=== PATIENT | female | born 1940 | race Caucasian/White ===

== ENCOUNTER 2024-07-17 09:56 | Outpatient (AMB) | payer MEDICARE, SELFPAY ==
--- NOTE | 2024-07-17 09:58 | MHC.OFFVIS ---
Vital Signs 07/17/24 10:10 Weight 106 lb BP 163/79 H Blood Pressure Location Rt brachial Position Sitting Pulse 84 Intake Visit Reasons: Rectal Prolapse Intake Note: This patient presents for rectal prolapse assessment. Pt c/o; rectal prolapse. Medicaid Billing Clerk Required: No Accompanied by: Son Allergies ciprofloxacin [From Cipro] Allergy (Severe, Verified 07/17/24 10:08) unknown Sulfa (Sulfonamide Antibiotics) Allergy (Severe, Verified 07/17/24 10:08) unknown Medication List - Last Reconciled 07/17/24 by Angel Shoemaker MD albuterol sulfate 90 mcg/actuation inhalation amlodipine 5 mg PO DAILY aspirin (Adult Low Dose Aspirin) 81 mg PO DAILY atorvastatin 20 mg PO DAILY carbidopa-levodopa 25-100 mg ER 1 tab PO BID desvenlafaxine succinate ER 50 mg PO DAILY duloxetine 20 mg PO DAILY estradiol 0.01%(0.1mg/gram) vaginal fluticasone propionate 50 mcg/actuation sprays intranasal gabapentin 100 mg PO DAILY gabapentin 300 mg PO DAILY levothyroxine 100 mcg PO DAILY medroxyprogesterone 10 mg PO DAILY sertraline mg PO HPI HPI Rectal Prolapse: Details: [age] year old female referred for rectal prolapse and incontinence. She apparently has had this problem for several years now. She says that she has been incontinent of stools for a long time. She has had this prolapse for few years but she says she was not told that was a rectal prolapse until a few months ago. She has full incontinence and wears diapers. She says even with hard stools which she often has, this would come out without control. She has known Parkinson's disease. She is able to walk with a walker but does have a significantly abnormal gait. She lives in in assisted living facility. [facility] Medical History (Updated 07/17/24 @ 11:11 by Angel Shoemaker MD) Rectal prolapse Parkinsons disease Surgical History (Updated 07/17/24 @ 10:11 by KEVIN Rice) No pertinent past surgical history Social History (Updated 07/17/24 @ 10:11 by KEVIN Rice) Alcohol intake: never Patient Tobacco Use Status: Never used Tobacco Review of Systems Const Denies chills and Denies fever(s) Card Denies chest pain at rest Resp Denies cough GI Reports constipation and Reports fecal incontinence Denies difficulty voiding Musc Reports abnormal gait Neuro Details: has Parkinson's disease with shuffling gait Reports abnormal gait Physical Exam Vital Signs: Last Vital Signs Pulse 84 07/17/24 10:10 BP 163/79 H 07/17/24 10:10 Const Other: Using a walker, shuffling gait, moves very slowly, alert General: comfortable and no acute distress Resp Effort & Inspection: normal respiratory effort Cardio Rate: regular rate GI Other: Rectal exam shows a full rectal prolapse probably about 4 cm, rectal exam shows no sphincter tone at all, no palpable mass Palpation (GI): Soft to palpation, not firm and nontender Assessment & Plan Assessment & Plan (1) Rectal prolapse: Code(s): K62.3 - Rectal prolapse Category: Medical Plan: She has full rectal prolapse with note of severe incontinence. I had a long discussion with her about options. Unfortunately, treatment would be surgical including rectopexy with repair of the pelvic floor for incontinence. She does have significant medical issues including Parkinson's disease in scores poorly on the frailty index. She does not want any further surgical intervention at this time. She says she actually has been considering hospice care for herself. I did offer for her to be seen by [facility] or [facility] to discuss if she has any other options at this time and for 2nd opinion She does not seem to be bigger to do that. I did recommend trying on Metamucil 1 tbsp in a glass of juice or water about twice a day to help with the constipation and stool consistency. She is welcome to call the office or come back for any help that we can offer down the line. Her son was with her during the visit. Coding Level of Care Code New Pt Level 3 (94178) Diagnoses Rectal prolapse K62.3
[2024-07-17 10:10] VITALS: BP 163/79; PULSE 84
== END 2024-07-17 10:39 | disposition home or self-care (01) ==
PROVIDERS: PCP Student in an Organized Health Care Education/Training Program; Visit Provider Surgery
DX: K62.3 Rectal prolapse (principal)
CPT/HCPCS: 99203

== ENCOUNTER → 2024-07-17 09:56 | Outpatient (BNVA) | payer MEDICARE, SELFPAY | PROVIDERS: PCP Student in an Organized Health Care Education/Training Program; Visit Provider Surgery | DX: K62.3 Rectal prolapse (principal) | CPT/HCPCS: 99202 ==

== ENCOUNTER 2024-12-05 11:10 | Inpatient (IN) | payer MEDICARE, SELFPAY ==
--- NOTE | ~2024-12-05 | CT_ITS ---
EXAMINATION: CT HEAD WITHOUT CONTRAST CLINICAL INFORMATION: Fall with head strike. COMPARISON: None available. TECHNIQUE: Contiguous axial imaging was performed from the skull base to vertex without intravenous administration of contrast. This CT examination was performed using dose optimization techniques as appropriate, variously including the following: *Automated exposure control *Adjustment of mA and/or kV according to patient size (this includes techniques or standardized protocols for targeted exams where dose is matched to indication/reason for exam; i.e. extremities or head) *Use of iterative reconstruction technique FINDINGS: Artifact through the posterior fossa limits evaluation of this region. There is no evidence of intracranial hemorrhage or extra-axial fluid collection. There is no mass effect, or edema. No CT evidence of acute territorial infarct. Ventricles, sulci, and cisterns are diffusely prominent, consistent with age-related involutional changes. No hydrocephalus. No midline shift. Moderate supratentorial deep white matter hypodensities, in keeping with small vessel ischemic changes. Ossification of the ventral falx. Old lacunar type infarcts bilateral thalami, and anterior gangliocapsular regions. Mild atheromatous calcification of the bilateral carotid siphons and V4 segments vertebral arteries bilaterally. Globes and orbital contents image normally. There are bilateral lens replacements. No extracranial soft tissue abnormalities. The paranasal sinuses, mastoid air cells, and tympanic cavities are normally aerated. No suspicious bony abnormalities. No fractures seen. There is hyperostosis frontalis internus. Degenerative changes right greater than left TM joints. CT/CT head/brain wo IV con IMPRESSION: 1. No acute intracranial abnormalities. No fractures. 2. Chronic findings as discussed.. Electronically signed by: Sudarshan Solo MD 12/05/2024 12:[address] [facility]
--- NOTE | ~2024-12-05 | CT_ITS ---
EXAMINATION: CT HEAD WITHOUT CONTRAST CLINICAL INFORMATION: fall w/ head strike COMPARISON: December 05, 2024 at 11:24 AM. Interval removal TECHNIQUE: Contiguous axial imaging was performed from the skull base to vertex without intravenous administration of contrast. This CT examination was performed using dose optimization techniques as appropriate, variously including the following: *Automated exposure control *Adjustment of mA and/or kV according to patient size (this includes techniques or standardized protocols for targeted exams where dose is matched to indication/reason for exam; i.e. extremities or head) *Use of iterative reconstruction technique DLP: 572.70 and 692.53 mGy-cm FINDINGS: Bony calvarium is intact. Skull base is intact. No acute intracranial hemorrhage, mass effect, midline shift, hydrocephalus or herniation. Bilateral multifocal patchy and confluent deep periventricular white matter hypodensities involving centrum semiovale and beltran radiata. Prominence of the extra-axial CSF spaces cerebral sulci and ventricles likely central volume loss. Calcified plaques in the V4 segments of the vertebral arteries and cavernous supracavernous segments both ICA. Sellar/suprasellar region demonstrated no gross masses or hemorrhage. Degenerative changes in the temporomandibular joints. No air-fluid levels in the included paranasal sinuses. For pneumatization of the frontal sinuses. Tympanic cavities and mastoid cells are aerated. No hematoma, intraconal or extraconal compartments of the orbits. CT/CT head/brain wo IV con IMPRESSION: No acute fracture, bony calvarium. No acute intracranial hemorrhage. Small vessel occlusive disease. Superimposed acute stroke/nonhemorrhagic ischemia cannot be excluded. Electronically signed by: Bret Cornejo MD 12/05/2024 02:02 PM [facility]
--- NOTE | ~2024-12-05 | CT_ITS ---
EXAMINATION: CT ABDOMEN AND PELVIS WITH CONTRAST CLINICAL INFORMATION: Fall, abnormal bladder seen CT lumbar spine. Compressible left lower quadrant mass. COMPARISON: No prior abdominal imaging. CT lumbar performed earlier same day. TECHNIQUE: Multidetector volumetric images were obtained from the superior aspect of the liver through the pubic symphysis following administration 85 mL of Omnipaque 350 intravenous contrast. Sagittal and coronal reformatted images were obtained on the technologist's workstation. Oral contrast: No This CT examination was performed using dose optimization techniques as appropriate, variously including the following: *Automated exposure control *Adjustment of mA and/or kV according to patient size (this includes techniques or standardized protocols for targeted exams where dose is matched to indication/reason for exam; i.e. extremities or head) *Use of iterative reconstruction technique FINDINGS: LUNG BASES: There is cardiac enlargement. There is calcification of the mitral annulus. No pericardial effusion. There is elevated left hemidiaphragm present. There is a small layering effusion on the right. There is mild bibasilar passive atelectasis. LIVER, GALLBLADDER, AND BILIARY TREE: The liver is normal in shape and size. Diffuse periportal edema. No suspicious lesion. No intrahepatic biliary dilatation. Common bile measures 7 mm in the pancreatic head. The gallbladder is somewhat decompressed with no evidence of radiopaque gallstones, gallbladder wall thickening, or obvious pericholecystic inflammatory changes. PANCREAS: Unremarkable. SPLEEN: Unremarkable. ADRENAL GLANDS: Bilateral hyperplasia. KIDNEYS AND URETERS: Right kidney is ptotic. It demonstrates diffuse cortical thinning/scarring. No hydronephrosis, mass, or calculus. Left kidney is normal in appearance with small cysts present. No hydronephrosis, calculus, or mass. BLADDER: Partially obscured by streak artifact from bilateral hip replacements. Moderate volume intraluminal gas, and gas seen throughout the bladder wall, consistent with emphysematous cystitis. Allowing for technical limitations, no definite fistulous tract identified. Evaluation is limited. GASTROINTESTINAL TRACT: There is abundant stool seen throughout the colon consistent with obstipation. There is inferior rectal wall thickening, edema, and enhancement extending to the arch. There is infiltration of the perirectal fat along with hemorrhoidal varices. Evaluation is partially obscured by streak artifact. Inflammatory proctitis versus mass. The appendix is suboptimally visualized but grossly no evidence of appendicitis. The duodenum appears slightly thickened with thickened enhancing mucosal folds. Cannot exclude duodenitis. Small bowel is not dilated. PERITONEUM: Anasarca with small volume ascites. No free air. RETROPERITONEUM: Diffuse anasarca with small volume fluid. ABDOMINAL WALL: Diffuse anasarca. No definite discrete hernia. LYMPH NODES: No abnormal lymphadenopathy detected. VASCULAR: Heavy atheromatous calcification and tortuosity of the aorta and iliac arteries. No aneurysm. Dilation of the SMV and portal veins, possible portal hypertension. Dilation of the IVC suggesting right heart failure. PELVIC VISCERA: Calcified fibroids within a mildly enlarged uterus. Evaluation is limited due to streak artifact from hip replacements. No definite adnexal masses. OSSEOUS STRUCTURES: Refer to the dedicated lumbar CT for lumbar spine findings. Bilateral hip arthroplasties in place. No complication evident. CT/CT abdomen pelvis w IV con IMPRESSION: 1. Anasarca with small volume intraperitoneal ascites. Small right pleural effusion. 2. Emphysematous cystitis. No definite fistulous connection to bowel although evaluation is limited due to streak artifact from bilateral hip arthroplasties. 3. Inferior rectal thickening, enhancement, and edema, with small hemorrhoidal varices. Differential includes proctitis versus mass lesion. Would correlate with direct visualization/digital examination. 4. Obstipation. 5. Dilation of the portal veins, and extra and intrahepatic IVC, findings suggestive of right heart failure. Cardiomegaly. 6. Mild thickening and enhancement of the duodenum, possibly secondary to increased right heart pressures, although duodenitis is a consideration. 7. Mild atrophy and diffuse cortical thinning/scarring right kidney. 8. Numerous additional ancillary findings as discussed. Also refer to the dedicated lumbar CT performed earlier. Electronically signed by: Sudarshan Solo MD 12/05/2024 02:19 PM [facility] [place], [place]
--- NOTE | ~2024-12-05 | CT_ITS ---
EXAMINATION: CT LUMBAR SPINE WITHOUT CONTRAST CLINICAL INFORMATION: Fall, lumbar pain. COMPARISON: None available. TECHNIQUE: Spiral CT examination of the lumbar spine in axial plane without IV contrast. Multiplanar reformatted imaging was constructed from the axial data set. This CT examination was performed using dose optimization techniques as appropriate, variously including the following: *Automated exposure control *Adjustment of mA and/or kV according to patient size (this includes techniques or standardized protocols for targeted exams where dose is matched to indication/reason for exam; i.e. extremities or head) *Use of iterative reconstruction technique FINDINGS: There is a levoconvex scoliosis, apex at L3, mild to moderate. There is straightening of the normal lordosis. There is osteopenia. There appears to be a probable acute fracture through a right dorsolateral spurring disc osteophyte involving the superior L4, nondisplaced (refer to series 5, image 66). This could potentially be chronic. Otherwise, no acute fractures, compression deformities, traumatic subluxations, or suspicious bone lesions. Severe disc degeneration with disc vacuum phenomenon spanning T11-L4, with associated sclerosis of the endplates and prominent disc osteophytes ventrally and laterally. Partial fusion of the L5-S1 anterior disc. Minimal partial fusion of the L4-5 disc. Minimal degenerative anterolisthesis L1 on L2, and retrolisthesis L2 on L3. Sagittal alignment is otherwise anatomic. Facet alignment is grossly anatomic although there are severe, end-stage hypertrophic degenerative facet changes throughout the lumbar spine, with postoperative fusion of the L4-5 and L5-S1 facets. Suspect multilevel canal stenosis, likely severe spanning T11-L4. Multilevel high-grade foraminal stenosis. Soft tissues demonstrate heavy calcification and tortuosity of the aorta which is nonaneurysmal. There is emphysema throughout the wall of the urinary bladder, consistent with emphysematous cystitis. There is abundant fecal material seen throughout the colon consistent with obstipation. There are calcified fibroids within the uterus. There is diffuse anasarca of the soft tissues. Prominent atrophy of the paraspinous musculature spanning L3-[address]/CT lumbar spine wo IV con IMPRESSION: 1. Age-indeterminate fracture through a large right anterolaterally projecting disc osteophyte superior endplate L3. No displacement. 2. Otherwise, no additional acute fracture or traumatic malalignment evident. 3. There has been fusion of L4-S1 facets. 4. Advanced, severe, multilevel spondylosis with multilevel severe canal stenosis. 5. Emphysema seen throughout the urinary bladder wall, suboptimally imaged, but suspicious for emphysematous cystitis. 6. Obstipation. Anasarca. Small right pleural effusion. -Findings were discussed with Paula Fuentes of the [facility] at 12:35 PM, 12/05/2024. Electronically signed by: Sudarshan Solo MD 12/05/2024 12:43 PM [facility] [place]
--- NOTE | ~2024-12-05 | CT_ITS ---
EXAMINATION: CT CERVICAL SPINE WITHOUT CONTRAST CLINICAL INFORMATION: Fall with head strike. History of cervical fusion. Neck pain. COMPARISON: None available. TECHNIQUE: Spiral CT examination of the cervical spine in axial plane without IV contrast. Multiplanar reformatted imaging was constructed from the axial data set. This CT examination was performed using dose optimization techniques as appropriate, variously including the following: *Automated exposure control *Adjustment of mA and/or kV according to patient size (this includes techniques or standardized protocols for targeted exams where dose is matched to indication/reason for exam; i.e. extremities or head) *Use of iterative reconstruction technique FINDINGS: There is a mild to moderate right convex scoliosis. There is mild reversal of the normal lordosis centered at C5. There have been laminectomies and posterior fusion of C3-C5 with bilateral lateral mass screws and posterior connecting rods. The hardware appears intact and well seated without loosening. No fracture, traumatic subluxation, compression deformity, or suspicious bone lesion. There is normal facet alignment. The C3-5 facets show bony fusion. The craniocervical junction is intact and aligned. The C1-2 articulation is intact and aligned. There are advanced arthritic changes at the C1-2 articulation with calcified ventral and dorsal pannus. There is a chronic appearing 4 mm degenerative anterolisthesis of C4 on C5. There is a 3 mm degenerative retrolisthesis of C5 on C6, and anterolisthesis of C7 on T1. Grossly no high-grade canal stenosis given limitations of modality and streak artifact from hardware. Probable moderate central canal narrowing C5-6. No prevertebral soft tissue abnormality. Moderate to heavy carotid bulb calcification left greater than right. Thyroid is not well seen and is either surgically absent or atrophic. There is scarring in the imaged lung apices. CT/CT cervical spine wo IV con IMPRESSION: 1. No CT evidence of acute cervical spine fracture or injury. Diffuse spondylosis. 2. Laminectomies and posterior fusion C3-C5. No hardware abnormality or loosening. 3. Suspect moderate central canal stenosis at C5-6. Evaluation inherently limited due to modality. 4. See above for details. Electronically signed by: Sudarshan Solo MD 12/05/2024 12:18 PM [facility]
--- NOTE | ~2024-12-05 | XR_ITS ---
EXAMINATION: XR SHOULDER 2 OR MORE VIEWS RIGHT HISTORY: pain s/p fall COMPARISON: There are no prior studies available for comparison. FINDINGS: Three views of the right shoulder are submitted. Osseous mineralization is normal. There is no fracture or dislocation. There is moderate degenerative change of the glenohumeral and acromioclavicular joints with joint space narrowing and osteophyte formation. Soft tissue calcifications adjacent to the greater tuberosity of the humerus and superior to the glenoid may be related to the rotator cuff. XR/XR shoulder RT min 2V IMPRESSION: Moderate degenerative changes. Probable rotator cuff calcifications. Electronically signed by: Dawson Bansal MD 12/05/2024 01:13 PM EST
[2024-12-05 11:16] VITALS: BP 118/67; BP 131/80; PULSE 78; PULSE 88; RESP 20; TEMP 36.8; O2SAT 98; BMI 17.6
--- NOTE | 2024-12-05 11:21 | ECG_ITS ---
Test Reason : WEAKNESS Blood Pressure : */* mmHG Vent. Rate : 83 BPM Atrial Rate : 83 BPM P-R Int : 170 ms QRS Dur : 82 ms QT Int : 366 ms P-R-T Axes : 60 34 19 degrees QTcB Int : 430 ms Sinus rhythm with Premature supraventricular complexes Minimal voltage criteria for LVH, may be normal variant ( [place] product ) Septal infarct , age undetermined Abnormal ECG No previous ECGs available Referred By: Paula Fuentes Electronically Signed By: Alex Martin
--- NOTE | 2024-12-05 11:34 | ED_ITS ---
HPI - Fall General Chief Complaint: Fall Stated Complaint: FALL,HEAD PAIN,RT SHLDR PAIN,-LOC,+THIN+COLLAR Time Seen by Provider: 12/05/24 11:15 Source: patient, EMS and old records reviewed Mode of arrival: EMS Limitations: no limitations History of Present Illness ED Provider: Serge Fuentes PA-C HPI Narrative: 84 yo female with history of Parkinson's disease, severe lumbar spinal stenosis s/p surgery, hx rectal prolapse, multiple falls in the last 1 month who presents to the ER from her independent living facility for evaluation of a fall in the bathroom today. She states she was in the bathroom using her walker when she got caught and fell backward. She hit her head and fell onto her right shoulder. No LOC. She is not on anticoagluation. She reports pain in her right shoulder, her head and her lower back. She states she has been falling a lot lately. She denies dizziness or lightheadedness prior to the fall. No chest pain or abdominal pain. She reports suprapubic pain but denies issues with urination. She has issues with diarrhea and constipation with her nonoperable rectal prolapse that is chronic issues. MD complaint: fall Onset (ago): hour(s) Fall from: standing Fall witnessed: no Place fall occurred: home Loss of consciousness: none Prolonged down time: no Symptoms prior to fall: none Context: tripped/slipped Location of injury: head Location of injury - extremities: right: shoulder Severity: moderate Quality: aching Associated symptoms (after fall): headache and unable to walk Related Data Home Medications ?Medication ?Instructions ?Recorded ?Confirmed albuterol sulfate 90 mcg/actuation inhalation 07/17/24 07/17/24 aerosol inhaler amlodipine 5 mg tablet 5 mg PO DAILY 07/17/24 07/17/24 aspirin 81 mg tablet,delayed 81 mg PO DAILY 07/17/24 07/17/24 release (Adult Low Dose Aspirin) atorvastatin 20 mg tablet 20 mg PO DAILY 07/17/24 07/17/24 carbidopa ER 25 mg-levodopa 100 mg 1 tab PO BID 07/17/24 07/17/24 tablet,extended release desvenlafaxine succinate 50 mg 50 mg PO DAILY 07/17/24 07/17/24 tablet,extended release 24 hr duloxetine 20 mg capsule,delayed 20 mg PO DAILY 07/17/24 07/17/24 release estradiol 0.01% (0.1 mg/gram) vaginal 07/17/24 07/17/24 vaginal cream fluticasone propionate 50 spray intranasal 07/17/24 07/17/24 mcg/actuation nasal spray,suspension gabapentin 100 mg capsule 100 mg PO DAILY 07/17/24 07/17/24 gabapentin 300 mg capsule 300 mg PO DAILY 07/17/24 07/17/24 levothyroxine 100 mcg tablet 100 mcg PO DAILY 07/17/24 07/17/24 medroxyprogesterone 10 mg tablet 10 mg PO DAILY 07/17/24 07/17/24 sertraline 25 mg tablet mg PO 07/17/24 07/17/24 Allergies Allergy/AdvReac Type Severity Reaction Status Date / Time ciprofloxacin [From Cipro] Allergy Severe unknown Verified 12/05/24 11:21 Sulfa (Sulfonamide Allergy Severe unknown Verified 07/17/24 10:08 Antibiotics) Review of Systems 2 Review of Systems: Yes all other systems are reviewed and are negative [facility] Past Medical History Medical History Rectal prolapse Parkinsons disease Surgical History No pertinent past surgical history Social History Social History Alcohol intake: never Patient Tobacco Use Status: Never used Tobacco Smoked in Last 30 Days: No Use of substances other than those prescribed or required for medical reasons: No Advance Directives: No Advance Directives Information Provided: Yes Physical Exam 2 Vital Signs: Vital Signs: Last Vital Signs Temp 98.3 F 12/05/24 11:16 Pulse 88 12/05/24 12:18 Resp 20 12/05/24 12:18 BP 157/77 H 12/05/24 12:18 Pulse Ox 98 12/05/24 11:16 O2 Del Method Room Air 12/05/24 11:16 BMI result Body Mass Index 17.6 Appearance: Alert, frail elderly female laying in bed, appears uncomfortable. Oriented X3. No acute distress. Head: normocephalic, atraumatic. Eyes: Pupils equal, round and reactive to light. ENT: Pharynx normal. No tonsillar swelling or exudate. Neck: Normal inspection. Neck supple. no midline tenderness (when collar removed) CVS: Normal heart rate and rhythm. Pulses normal. Respiratory: No respiratory distress. Breath sounds normal. Abdomen: Soft with suprapubic tenderness, left lower quadrant with compressible mass approx 3cm x2cm. +BS x4 Skin: Skin warm and dry. Normal skin color. Normal skin turgor. No rashes. Extremities: No lower extremity edema. No joint swelling. stable pelvis, nontender hips. left lower leg with round wound approx 2cm. Neuro/psych: Oriented X 3. generally weak, strength is equal and symmetrical throughout. No sensory deficit. CN II-XII intact. Normal speech and cognition. Medications Administered Discontinued Medications Generic Name Dose Route Start Last Admin Trade Name Freq PRN Reason Stop Dose Admin Carbidopa/Levodopa 1 tab 12/05/24 14:06 12/05/24 14:35 Carbidopa/Levodopa 25/100 Tablet PO 12/05/24 14:07 1 tab ONCE ONE Administration Ceftriaxone Sodium 1 gm 12/05/24 12:44 12/05/24 13:42 Ceftriaxone Sodium 1 Gm Vial IVPUSH 12/05/24 12:45 1 gm ONCE ONE Administration Iohexol 100 ml 12/05/24 13:40 12/05/24 13:40 Iohexol 350 Mg/Ml 100 Ml Infus..Btl IV 12/05/24 13:41 85 ml ONCE ONE Administration Medical Decision Making Medical Decision Making MDM Narrative: 84 yo female with history of Parkinson's disease and multiple recent falls presents for evaluation of another fall today with head strike. Seen recently at [facility] for the same. She c/o right shoulder pain, lower back pain and headache. Nonfocal neuro exam. Patient's son reports she has been more confused lately. He has been trying to get her up with penitentiary care at [place]. Initial CT head w/ artifact so repeat requested per radiology. No cervical fractures appreciated, c-collar removed. CT scan of the lumbar spine performed given her reports of severe low back pain. This showed air in the bladder and bladder wall. Patient was straight catheterized for gross hematuria. UA positive for infection. Case d/w Radiologist Dr. Solo - concern is for emphysematous cysitis. dedicated CT scan of the abd/pelvis w/ contrast performed for better evaluation. no fistulas seen. Case d/w Dr. Frank who is recommending Lau for 5 days, abx. Repeat CT head with small vessel occlusive disease. superimposed acute stroke/nonhemorrhagic ischemia cannot be excluded. clinically she does not have a stroke, nonfocal neuro exam. no need for emergent MRI at this time. Will plan to admit here for IV abx Differential Diagnosis Differential Diagnoses: The differential diagnosis associated with the presentation includes concussion, SAH/epidural hematoma, syncope, compression fx, UTI, ZULEIKA, bladder fistula Admission/Observation Consideration of admission/observation: Escalation of care including admission/observation considered Consult Healthcare Provider Management of the patient was discussed with: Hospitalist and Baker Bread Dr. Frank Urology Lab Data MDM Lab Attestation statement: I reviewed the patient's lab results. anemia, mild hyponatremia, no ZULEIKA 12/05/24 12:39 12/05/24 12:39 Labs: Lab Results 12/05/24 12/05/24 12/05/24 Range/Units 12:19 12:39 13:19 WBC 8.8 (4.8-10.8) X10*3/uL RBC 3.12 L (4.20-5.50) X10*6/uL Hgb 10.6 L (12.0-16.0) g/dl Hct 31.2 L (37.0-47.0) % MCV 100.0 H (80.0-98.0) fL MCH 34.0 H (27.0-33.0) pg MCHC 34.0 (31.0-35.0) g/dl RDW 14.9 (11.0-16.0) % Plt Count 253 (160-400) X10*3/uL MPV 9.7 (9.4-12.3) fL Immature Gran % (Auto) 0.2 (0.0-0.4) % Neut % (Auto) 80.7 H (45-73) % Lymph % (Auto) 8.3 L (20-40) % Davidson % (Auto) 8.1 (2-11) % Eos % (Auto) 1.9 (0-4) % Baso % (Auto) 0.8 (0-2) % Lymph # (Auto) 0.7 L (1.2-4.9) X10*3/uL Davidson # (Auto) 0.7 (0.1-1.2) X10*3/uL Eos # (Auto) 0.2 (0.0-0.4) X10*3/uL Baso # (Auto) 0.1 (0.0-0.2) X10*3/uL Abs Immat Gran (auto) 0.02 (0.00-0.03) X10*3/uL Absolute Neuts (auto) 7.1 (2.0-8.3) x10*3/uL Absolute Nucleated RBC 0.000 (0.0-0.012) X10*3/uL Nucleated RBC % (auto) 0.0 (0.0-0.2) /100WBC PT 12.4 (10.9-12.4) SEC INR 1.1 (0.9-1.1) Sodium 134 L (135-145) mmol/L Potassium 4.6 (3.3-5.1) mmol/L Chloride 105 (96-108) mmol/L Carbon Dioxide 22 (22-29) mmol/L Anion Gap 12 (12-20) BUN 18 H (9-16) mg/dL Creatinine 0.66 (0.5-1.4) mg/dL Estim Creat Clear Calc 40.2 Estimated GFR > 60 Random Glucose 115 (60-115) mg/dL Lactic Acid 1.0 (0.5-2.0) mmol/L Calcium 8.4 (8.4-10.2) mg/dL Magnesium 2.0 (1.6-2.6) mg/dL Total Bilirubin 0.4 (0.0-1.0) mg/dL Direct Bilirubin 0.2 (0.0-0.5) mg/dL AST 23 (5-31) U/L ALT < 6 (0-31) U/L Alkaline Phosphatase 78 (39-117) U/L Total Protein 6.0 L (6.5-8.0) g/dL Albumin 3.0 L (3.5-5.0) g/dL Urine Color RED Urine Appearance Turbid Urine pH 6.5 (5.0-9.0) Ur Specific [place] 1.025 (1.005-1.025) Urine Protein 300 (3+) H (Neg-Trace) mg/dL Urine Glucose (UA) Negative (Negative) mg/dL Urine Ketones 15 (Negative) mg/dL Urine Blood Large (3+) H (Negative) Urine Nitrite Positive H (Negative) Ur Leukocyte Esterase Moderate (2+) H (Negative) Urine RBC >20 H (0-2) /HPF Urine WBC >50 H (0-5) /HPF Ur Squamous Epith Cells 3-5 (0-2) /HPF Urine Bacteria 4+ (None Seen) Hyaline Casts 0-2 (0-2) /LPF Influenza Type A (PCR) NEGATIVE (Negative) Influenza Type B (PCR) NEGATIVE (Negative) RSV RNA Qual (PCR) NEGATIVE (Negative) SARS-CoV-2 RNA (RT-PCR) NEGATIVE (Negative) Independent Interpretation I performed an independent interpretation of an: EKG and CT Scan Interpretation: EKG with normal sinus rhythm, w/ PVCs, normal RI interval, normal QTc CT scan lumbar spine with significant air in the bladder and bladder wall. Radiology Impression Discussion of test interpretation with radiology: I discussed test interpretation with the radiologist and I have reviewed the radiologist's reading. Independent Historian Clinical information obtained from an independent historian. History obtained from or confirmed by: EMS and Other (adult son at bedside) Tests considered The following testing was considered but not selected: MRI brain considered, can be done inpatient if clinically indicated Prescription Management I considered prescription management with: Pain Medication and Antibiotic Chronic Conditions Patient?s care impacted by: Other (parkinson's disease) Social Determinants Patient?s care significantly limited by Social Determinants of Health including: Problems related to primary support group Critical Care Time Critical Care Time Critical Care Time: Yes Total Critical Care Time: 42 Attestation: I have personally provided critical care time exclusive of time spent on separately billable procedures. Time includes review of lab data, radiology results, discussion with consultants, and monitoring for potential decompensation. Intervention performed as documented. Discharge Plan Discharge Clinical Impression: Emphysematous cystitis, Parkinsons disease Patient Disposition: Admitted As Inpatient Print Language: Italian
--- OUTSIDE RECORDS SUMMARY | 2024-12-05 12:01 | XMS_ITS | Encounter Summary ---
Author Organization [facility] Address [address] [place] [address] Care Team Providers Care Sleeve Bottom Feller Name Role Phone Carley Luque MD Primary Care Provider Encounter Details Date Type Department Care Team (Late Contact Info) Description 11/19/2024 Refill [facility] Neurology [address] [phone] Jones Brewer, SHELBY [address] [facility] [address] [place] [phone] Parkinson's disease (HCC) Social History Tobacco Use Types Packs/Day Years Used Date Smoking Tobacco: Former Cigarettes Smokeless Tobacco: Never Alcohol Use Standard Drinks/Week Comments Yes 0 (1 standard drink = 0.6 oz pur e alcohol) half glass wine month PHQ-2 Answer Date Recorded PHQ-2 Total Score 4 03/15/2024 Sex and Gender Information Value Date Recorded Sex Assigned at Not on file Gender Identity Female 07/01/2022 2:47 PM EDT Sexual Orientation Heterosexual (straight) 07/01 2:47 PM EDT documented as of this encounter Plan of Treatment Upcoming Encounters Date Type Department Care Team (Late Contact Info) Description 12/20/2024 11:50 AM EST Office Visit [facility] Neurology [address] [phone] Jones Brewer, ORACLE SOA DEVELOPER [address] [facility] [address] [place] [address] documented as of this encounter Visit Diagnoses Diagnosis Parkinson's disease (HCC) Paralysis agitans documented in this encounter Care Teams Sleeve Bottom Feller Relationship Specialty Start Date End Date Carley Luque MD [address] [place] [id number] PCP - General Family Medicine 08/23/22 documented as of this encounter
--- OUTSIDE RECORDS SUMMARY | 2024-12-05 12:01 | XMS_ITS | Encounter Summary ---
Author Organization [facility] Address [address] [place] [address] Care Team Providers Care Hvac Project Manager Name Role Phone Carley Luque MD Primary Care Provider [phone] Encounter Details Date Type Department Care Team (Late Contact Info) Description 11/20/2024 Refill [facility] Neurology [address] [phone] Jones Brewer, SHELBY [address] [place] [address] [place] [phone] Parkinson's disease without dyskinesia or fluctuating manifestations (HCC) Social History Tobacco Use Types Packs/Day [...] Description 12/20/2024 11:50 AM EST Office Visit [facility] Neurology [address] [phone] Jones Brewer, CASTING ROOM OPERATOR [address] [place] [address] documented as of this encounter Visit Diagnoses Diagnosis Parkinson's disease without dyskinesia or fluctuating manifestations (HCC) documented in this encounter Care Teams Hvac Project Manager Relationship Specialty Start Date End Date Carley Luque MD [address] [place] [address] [place] [id number] PCP - General Family Medicine 08/23/22 documented as of this encounter
--- OUTSIDE RECORDS SUMMARY | 2024-12-05 12:01 | XMS_ITS | Encounter Summary ---
Author Organization [facility] Address [address] [place] [address] Care Team Providers Care Boom Supervisor Name Role Phone Carley Luque MD Primary Care Provider [phone] Reason for Visit * Reason Comments Medication Refill Encounter Details Date Type Department Care Team (Late Contact Info) Description 01/11/2023 Refill [facility] Neurology [address] [phone] Jones Brewer, SHELBY [address] [place] [phone] Parkinson's disease (HCC); Constipation, unspecified constipation type Social History Tobacco Use Types Packs/Day Years Used Date Smoking Tobacco: Former Cigarettes Smokeless Tobacco: Never Alcohol Use Standard Drinks/Week Comments Yes 0 (1 standard drink = 0.6 oz pur e alcohol) half glass wine month Sex and Gender Information Value Date Recorded Sex Assigned at Not on file Gender Identity Female 07/01/2022 2:47 PM EDT Sexual Orientation Heterosexual (straight) 07/01 2:47 PM EDT documented as of this encounter Plan of Treatment Upcoming Encounters Date Type Department Care Team (Late Contact Info) Description 12/20/2024 11:50 AM EST Office Visit [facility] Neurology [address] [phone] Jones Brewer, SAP BUSINESS INTELLIGENCE CONSULTANT [address] [facility] [address] [place] [address] documented as of this encounter Visit Diagnoses Diagnosis Parkinson's disease (HCC) Paralysis agitans Constipation, unspecified constipation type documented in this encounter Care Teams Boom Supervisor Relationship Specialty Start Date End Date Carley Luque MD [address] [place] [phone] PCP - General Family Medicine 08/23/22 documented as of this encounter
--- OUTSIDE RECORDS SUMMARY | 2024-12-05 12:01 | XMS_ITS ---
Author Name [facility] Organization Unknown History of Medication Use Medication Directions Dispensed Refills Start Date End Date Stat us aspirin enteric coated (ECOTRIN LOW STRENGTH) 81 MG EC tablet Take 1 tablet (81 mg total) by mouth daily. active medroxyPROGESTERone (PROVERA) 10 MG tablet Take 1 tablet (10 mg total) by mouth daily. 06/18/2024 active conjugated estrogens (PREMARIN) vaginal cream Insert into the vagina. 3 active calcium carbonate (OS-GISELLE) 600 MG tablet Take 1 tablet (600 mg total) by mouth every morning with breakfast. 3 active atorvastatin (LIPITOR) 20 MG tablet Take 1 tablet (20 mg total) by mouth daily. 06/30/2022 active CRANBERRY PO Take by mouth. acti ve amLODIPine (NORVASC) 5 MG tablet 10/11/2024 active DULoxetine (CYMBALTA) 20 MG capsule Take 1 capsule (20 mg total) by mouth nightly. 05/06/2024 active levothyroxine (SYNTHROID, LEVOTHROID) 100 MCG tablet Take 1 tablet (100 mcg total) by mouth every morning. 06/30/2022 active alendronate (FOSAMAX) 70 MG tablet Take 1 tablet (70 mg total) by mouth every 7 days. Take with a full glass of water; do not lie down for the next 30 min. 3 active desvenlafaxine (PRISTIQ) 50 MG 24 hr tablet Take 1 tablet (50 mg total) by mouth daily. 03/15/2024 active amLODIPine (NORVASC) 5 MG tablet Take 1 tablet (5 mg total) by mouth nightly. 06/30/2022 3 active Vitamin D3 (CHOLECALCIFEROL) 50 MCG (2000 UT) tablet Take 1 tablet (2,000 Units total) by mouth daily. active donepezil (ARICEPT) 5 MG tablet Take 1 tablet (5 mg total) by mouth nightly. 09/23/2024 active gabapentin (NEURONTIN) 100 MG capsule Take 2 capsules (200 mg total) by mouth nightly. 07/20/2022 active carbidopa-levodopa (SINEMET) 25-100 MG per tablet Take 2 tablets by mouth 4 (four) times a day. 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 ProblemAct [facility] Generalized anxiety disorder active 2022-07-20 ProblemAct [facility] Irritable bowel syndrome with constipation active 1992-07-17 ProblemAct [facility] Osteoporosis prophylaxis active 2017-07-17 ProblemAct [facility] Essential hypertension active 2012-07-17 ProblemAct [facility] Altered bowel habits active 2023-01-16 ProblemAct [facility] Increased frequency of urination active 2017-07-17 ProblemAct [facility] Urinary urgency active 2022-08-23 ProblemAct [facility] Dyskinesia active 2022-08-23 ProblemAct [facility] Atherosclerosis of [place] coronary artery of [place] heart without angina pectoris active 2022-07-20 ProblemAct [facility]
--- OUTSIDE RECORDS SUMMARY | 2024-12-05 12:01 | XMS_ITS | Encounter Summary ---
Author Organization [facility] Address [address] [place] [address] Care Team Providers Care Clinical Social Work Aide Name Role Phone Carley Luque MD Primary Care Provider [phone] Encounter Details Date Type Department Care Team (Late st Contact Info) Description 11/20/2024 Scanned Document [facility] Neurology [address] [phone] Neurology, Scan Social History Tobacco Use Types Packs/Day Years [...] Description 12/20/2024 11:50 AM EST Office Visit [facility] Neurology [address] [phone] Jones Brewer, CAR PUSHER [address] [phone] documented as of this encounter Visit Diagnoses Not on filedocumented in this encounter Care Teams Clinical Social Work Aide Relationship Specialty Start Date End Date Carley Luque MD [address] [place] [address] [place] [address] PCP - General Family Medicine 08/23/22 documented as of this encounter
--- OUTSIDE RECORDS SUMMARY | 2024-12-05 12:02 | XMS_ITS | Encounter Summary ---
Author Organization [facility] Address [address] [place] [address] Care Team Providers Care Kiss Setter Hand Name Role Phone Carley Luque MD Primary Care Provider [phone]- [phone] Reason for Visit * Reason Comments Medication Refill Encounter Details Date Type Department Care Team (Late st Contact Info) Description 11/11/2024 Refill [facility] [address] [place] [phone] Jones Brewer, CARTOGRAPHIC DRAFTER 35 [facility] [address] [place] [address] Parkinson's disease without dyskinesia or fluctuating manifestations [...] PM EDT documented as of this encounter Miscellaneous Notes * Telephone Encounter - Isis Pryor RN - 11/13/2024 9:37 AM EST Spoke with son/POA who would like to wait to see how well the medication works before getting a refill * Telephone Encounter - Isis Pryor RN - 11/11/2024 10:00 AM EST Called Christen to discuss medication per previous telephone encounter with pharmacy liaison team. LM for call back. documented in this encounter Plan of Treatment Upcoming Encounters Date Type Department Care Team (Late st Contact Info) Description 12/20/2024 11:50 AM EST Office Visit [facility] [address] [phone] Jones Brewer, SHELBY [address] [place] [address] documented as of this encounter Visit Diagnoses Diagnosis Parkinson's disease without dyskinesia or fluctuating manifestations (HCC) documented in this encounter Care Teams Kiss Setter Hand Relationship Specialty Start Date End Date Carley Luque MD [address] [place] [address] [place] [address] PCP - General Family Medicine 08/23/22 documented as of this encounter
--- OUTSIDE RECORDS SUMMARY | 2024-12-05 12:02 | XMS_ITS | Encounter Summary ---
Author Organization [facility] Address [address] [place] [address] Care Team Providers Care Cd Mixer Helper Name Role Phone Carley Luque MD Primary Care Provider [phone]- [phone] Encounter Details Date Type Department Care Team (Late Contact Info) Description 02/08/[address] [facility] [address] [phone] Marya Nolen PA [address] [address] Social History Tobacco Use Types Packs/Day Years [...] Orientation Heterosexual (straight) 07/01 2:47 PM EDT COVID-19 Exposure Response Date Recorded In the last 10 days, have yo u been in contact with someone who was confirmed or suspected to have Coronavirus/COVID-19? No / Unsure 01/16/2023 8:40 AM EDT documented as of this encounter Plan of Treatment Upcoming Encounters Date Type Department Care Team (Late Contact Info) Description 12/20/2024 11:50 AM EST Office Visit [facility] [address] [place] [phone] Jones Brewer, SHELBY 35 [facility] [address] [place] [address] documented as of this encounter Visit Diagnoses Not on filedocumented in this encounter Care Teams Cd Mixer Helper Relationship Specialty Start Date End Date Carley Luque MD [address] [place] [address] [place] [address] PCP - General Family Medicine 08/23/22 documented as of this encounter
--- OUTSIDE RECORDS SUMMARY | 2024-12-05 12:02 | XMS_ITS | Encounter Summary ---
Author Organization [facility] Address [address] [place] [address] Care Team Providers Care Assembler Dielectric Heater Name Role Phone Carley Luque MD Primary Care Provider [phone] Reason for Visit * Reason Comments Medication Refill Encounter Details Date Type Department Care Team (Late Contact Info) Description 04/15/2023 Refill [facility] [address] [phone] Jones Brewer APRN [address] [phone] Parkinson's disease (HCC) Social History Tobacco Use [...] Description 12/20/2024 11:50 AM EST Office Visit [facility] [address] [phone] Jones Brewer, PODOPEDIATRICIAN 35 [facility] [address] [place] [address] documented as of this encounter Visit Diagnoses Diagnosis Parkinson's disease (HCC) Paralysis agitans documented in this encounter Care Teams Assembler Dielectric Heater Relationship Specialty Start Date End Date Carley Luque MD [address] [place] [address] PCP - General Family Medicine 08/23/22 documented as of this encounter
--- OUTSIDE RECORDS SUMMARY | 2024-12-05 12:02 | XMS_ITS | Encounter Summary ---
Author Organization [facility] Address [address] [place] [address] Care Team Providers Care Craft Superintendent Name Role Phone Carley Luque MD Primary Care Provider Encounter Details Date Type Department Care Team (Late Contact Info) Description 11/04/2024 Orders Only [facility] [address] [phone] Gary Tapia MD [address] [place] [address] Social History Tobacco Use Types Packs/Day Years [...] Description 12/20/2024 11:50 AM EST Office Visit [facility] [address] [phone] Jones Brewer, PUBLIC SERVICE OFFICER 35 [facility] [address] [place] [address] documented as of this encounter Visit Diagnoses Not on filedocumented in this encounter Care Teams Craft Superintendent Relationship Specialty Start Date End Date Carley Luque MD [address] [place] [address] [place] [address] PCP - General Family Medicine 08/23/22 documented as of this encounter
--- OUTSIDE RECORDS SUMMARY | 2024-12-05 12:02 | XMS_ITS | Clinical Summary ---
Author Organization [facility] Address [address] [place] [address] Care Team Providers Care Bulk Station Operator Name Role Phone Carley Luque MD Primary Care Provider [phone] Allergies Active Allergy Reactions Criticality Noted Date Comments Ciprofloxacin Rash/Dermatitis Low 07/20/2022 Sulfa Antibiotics Rash/Dermatitis Low 07/20/2022 Medications Medication Sig Dispensed Refills Start Date End Date Status atorvastatin (LIPITOR) 20 MG tablet Take 1 tablet (20 mg total) by mouth daily. 06/30/2022 Active gabapentin (NEURONTIN) 300 MG capsule Take 1 capsule (300 mg total) by mouth nightly. 07/20/2022 Active levothyroxine (SYNTHROID, LEVOTHROID) 100 MCG tablet Take 1 tablet (100 mcg total) by mouth every morning. 06/30/2022 Active aspirin enteric coated (ECOTRIN LOW STRENGTH) 81 MG EC tablet Take 1 tablet (81 mg total) by mouth daily. Active calcium carbonate (OS-GISELLE) 600 MG tablet Take 1 tablet (600 mg total) by mouth every morning with breakfast. Active Vitamin D3 (CHOLECALCIFEROL) 50 MCG (2000 UT) tablet Take 1 tablet (2,000 Units total) by mouth daily. Active Misc Natural Products (LUTEIN 20 PO) Take 1 tablet by mouth daily. Active multivitamin Tab tablet Take 1 tablet by mouth daily. Active estradiol (ESTRACE) 0.01 % vaginal cream 2023 Acti ve Cyanocobalamin (VITAMIN B-12 PO) Take by mouth. Active CRANBERRY PO Take by mouth. Active diphenhydrAMINE HCl (BENADRYL PO) Take by mouth. Active DULoxetine (CYMBALTA) 20 MG capsuleIndications:P arkinson's disease without dyskinesia or fluctuating manifestations (HCC) Take 1 capsule (20 mg total) by mouth nightly. 30 capsule 1 05/06/2024 Active carbidopa-levodopa ER (SINEMET CR) 25-100 MG per tabletIndications:Pa rkinson's disease without dyskinesia or fluctuating manifestations (HCC) Take 2 tablets by mouth nightly. 180 tablet 1 05/27/2024 Active donepezil (ARICEPT) 5 MG tabletIndications:Sh ort-term memory loss Take 1 tablet (5 mg total) by mouth nightly. 90 tablet 1 09/23/2024 Active medroxyPROGESTERone (PROVERA) 10 MG tablet Take 1 tablet (10 mg total) by mouth daily. 06/18/2024 Active psyllium (METAMUCIL) 58.12 % Pack packet Take 1 packet by mouth. Active amLODIPine (NORVASC) 5 MG tablet 10/11/2024 Active carbidopa-levodopa (SINEMET) 25-100 MG per tabletIndications:Pa rkinson's disease (HCC) Take 2 tablets by mouth 4 (four) times a day. 720 tablet 1 11/19/2024 Active Opicapone 25 MG CapIndications:Parki nson's disease without dyskinesia or fluctuating manifestations (HCC) Take 25 mg by mouth every evening. 90 capsule 1 11/20/2024 Active amLODIPine (NORVASC) 2.5 MG tablet 12/26/2022 5 Discontinue d(Dose adjustment) carbidopa-levodopa (SINEMET) 25-100 MG per tabletIndications:Pa rkinson's disease (HCC) Take 2 tablets by mouth 4 (four) times a day. 720 tablet 1 06/03/2024 5 Discontinue d(Reorder) Opicapone 25 MG CapIndications:Parki nson's disease without dyskinesia or fluctuating manifestations (HCC) Take 25 mg by mouth every evening. 90 capsule 1 08/14/2024 5 Discontinue d(Reorder) Opicapone 25 MG CapIndications:Parki nson's disease without dyskinesia or fluctuating manifestations (HCC) Take 25 mg by mouth every evening. 90 capsule 1 11/13/2024 5 Discontinue d(Reorder) Active Problems Problem Noted Date Diagnosed Date Dyspepsia 03/02/2023 Assessment & Plan (03/02/2023 11:00 AM EDT): Discussed using food journal to ID food triggers Trial of gas x prn after dinner, if no improvement then do trial of pepcid prn after dinner F/u 3-4 months Altered bowel habits 01/16/2023 Assessment & Plan (03/02/2023 10:58 AM EDT): Suspect IBS and constipation predominent No improvement with amitiza in the past Encouraged use of miralax prn continue fiber two doses /day drink plenty of water - high fiber diet Monitor diet for food triggers Discussed patients diet and suggested changes, such as, increasing fiber with more fruits, veggies, or supplements. Pt should also increase fluid intake to at least 60 oz of water or water based drinks daily. Assessment & Plan (01/16/2023 9:41 AM EDT): Suspect IBS and constipation predominent No improvement with amitiza in the past Encouraged daily use of miralax to promote normal bm daily Increase fiber from 2 tAbs bid to 5 tabs QAM drink plenty of water - high fiber diet Monitor diet for food triggers Discussed patients diet and suggested changes, such as, increasing fiber with more fruits, veggies, or supplements. Pt should also increase fluid intake to at least 60 oz of water or water based drinks daily. We discussed different pharmaceutical options and their risks, benefits, and how to correctly take them and stay consistent. Pelvic pain 08/23/2022 Urinary urgency 08/23/2022 Dyskinesia 08/23/2022 Atherosclerosis of [place] co ronary artery of [place] heart without angina pectoris 07/20/2022 Overview (08/23/2022): S/p stent Last Assessment & Plan: She should continue her baby aspirin for this reason. Atrophic vaginitis 07/20/2022 Overview (08/23/2022): Last Assessment & Plan: I recommend estring every 3 mos to help with dysuria likely related to atrophic vaginitis. Can consider vagifem as well if insurance won't cover estring. Generalized anxiety disorder 07/20/2022 Overview (08/23/2022): Last Assessment & Plan: I recommend starting a small dose of escitalopram for sx that sound very much like generalized anxiety. Monitor for s/e particularly nausea. 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 Her son will get me lab results in digital format. Sounds like she has had normal lab eval including b12 and paraproteinemia eval. I recommend nightly gabapentin, start at 100mg nightly and slowly work her way up to 300mg nightly. Warned of somnolence as a s/e. Parkinson's disease 07/20/2022 Overview (08/23/2022): Last Assessment & Plan: Consultation w/ new neurologist forthcoming. Carbi/levodopa has had a positive benefit on her life. Sx seem stable for now. Will continue to monitor neurology recommendations, plan is to work with [facility]. Increased frequency of urination 07/17/2017 Overview (08/23/2022): Last Assessment & Plan: Only at night. Has done a course of pelvic PT that I suspect may be partly due to bladder training and partly due to some vague pelvic pain that she describes. For now, we will monitor. She may benefit from oxybutynin in the future but perhaps gabapentin will help sx at night alongside neuropathy. Osteoporosis prophylaxis 07/17/2017 Overview (08/23/2022): Last Assessment & Plan: I recommend stopping fosamax as it really is beneficial for those with osteoporosis. Evidence is unclear on its benefit for those with FRAX score < 20%. Essential hypertension 07/17/2012 Overview (08/23/2022): Last Assessment & Plan: She is well controlled on just a bit of amlodipine. Osteoarthritis 07/17/1995 Irritable bowel syndrome with constipation 07/17 Overview (08/23/2022): Last Assessment & Plan: We will stop her amitiza as it really doesn't seem to be helping much. I do recommend good bowel protocol with twice daily psyllium husk for one week, then add a full scoop or packet of miralax in 8 ounces of water every day. Hypothyroidism 07/17/1983 Overview (08/23/2022): Last Assessment & Plan: Has had surveillance thyroid testing in 2021 and reportedly it was normal. Continue her usual dose. Encounters Date Type Department Care Team Description 11/20/2024 Scanned Document [facility] [address] [phone] Neurology, Scan 11/20/2024 Refill [facility] [address] [phone] Jones Brewer APRN Parkinson's disease without dyskinesia or fluctuating manifestations (HCC) 11/19/2024 Refill [facility] [address] [phone] Jones Brewer APRN Parkinson's disease (HCC) 11/13/2024 Refill [facility] [address] [phone] Jones Brewer APRN Parkinson's disease without dyskinesia or fluctuating manifestations (HCC) 11/11/2024 Refill [facility] [address] [phone] Jones Brewer APRN Parkinson's disease without dyskinesia or fluctuating manifestations (HCC) 11/05/2024 Telephone [facility] [address] [phone] Kameron Levy MD ONGENTYS 11/04/2024 Orders Only [facility] [address] [phone] Gary Tapia MD 10/24/2024 Telephone [facility] [address] [phone] Jones Brewer APRN Prior Authorization (Ongentys 25mg Capsule) 10/14/2024 Orders Only [facility] [address] [phone] Gary Tapia MD Parkinson's disease without dyskinesia or fluctuating manifestations (HCC) (Primary Dx); Urinary tract infection symptoms 09/23/2024 Orders Only [facility] [address] [phone] Gary Tapia MD Short-term memory loss (Primary Dx) from Last 3 Months Social History Tobacco Use Types Packs/Day Years Used Date Smoking Tobacco: Former Cigarettes Smokeless Tobacco: Never Tobacco Cessation:Counseling Given: Not Answered Alcohol Use Standard Drinks/Week Comments Yes 0 (1 standard drink = 0.6 oz pur e alcohol) half glass wine month PHQ-2 Answer Date Recorded PHQ-2 Total Score 4 03/15/2024 Sex and Gender Information Value Date Recorded Sex Assigned at Not on file Gender Identity Female 07/01/2022 2:47 PM EDT Sexual Orientation Heterosexual (straight) 07/01 2:47 PM EDT Last Filed Vital Signs Vital Sign Reading Time Taken Comments Blood Pressure 118/64 08/21/2024 9:42 AM EDT Pulse 85 08/21/2024 9:42 AM EDT Temperature 36.4 ??C (97.5 ??F) 08/21/2024 9:42 AM ED T Respiratory Rate 16 08/23/2022 10:24 AM EDT Oxygen Saturation 98% 08/21/2024 9:42 AM EDT Inhaled Oxygen Concentration - - Weight 49.9 kg (110 lb) 08/21/2024 9:42 AM EDT Height 162.6 cm (5' 4 ) 08/21/2024 9:42 AM EDT Body Mass Index 18.88 08/21/2024 9:42 AM EDT Plan of Treatment Upcoming Encounters Date Type Department Care Team (Late st Contact Info) Description 12/20/2024 11:50 AM EST Office Visit [facility] [address] [place] [address] Jones Brewer, SHELBY 35 [facility] [address] [place] [address] Health Maintenance Due Date Last Done Comments DTaP/Tdap/Td Vaccines (1 - Tdap) 1959 Pneumococcal Vaccines 50+ (1 of 2 - PCV) 1958 Zoster (Shingles) Vaccine (1 of 2) 1989 DXA Bone Density (Females,Ages 65 and older) 01/04/2004 RSV Vaccine 60 years and older and Patients (1 - 1-dose 75+ series) 2014 Influenza Vaccine 05/30/2024 07/30/2023, 07/30/2023, 07/20/2022 COVID-19 Vaccine (3 - 2023-2 5 season) 2024 07/30/2023, 04/27/2023, 08/11/2022 Hepatitis B Vaccines Aged Out No long er eligible based on patient's age to complete this topic Advance Directives Documents on File Type Date Recorded Patient Duco Polisher Expl anation Advance Directive-Scan 11/20/2024 Manny MONTENEGRO CE DIRECTIVE 02/28/2024 POA Care Teams Bulk Station Operator Relationship Specialty Start Date End Date Carley Luque MD [address] [place] [address] [place] Olivas [address] PCP - General Family Medicine 08/23/22
--- OUTSIDE RECORDS SUMMARY | 2024-12-05 12:02 | XMS_ITS | Encounter Summary ---
Author Organization [facility] Address [address] [place] [address] Care Team Providers Care Sleeve Baster Name Role Phone Carley Luque MD Primary Care Provider [phone]- [phone] Encounter Details Date Type Department Care Team (Late Contact Info) Description 11/13/2024 Refill [facility] [address] [phone] Jones Brewer, SHELBY [address] [place] [address] [place] [address] Parkinson's disease without dyskinesia or fluctuating [...] Description 12/20/2024 11:50 AM EST Office Visit [facility] [address] [phone] Jones Brewer, DIVIDEND DEPOSIT VOUCHER CLERK [address] [place] [address] documented as of this encounter Visit Diagnoses Diagnosis Parkinson's disease without dyskinesia or fluctuating manifestations (HCC) documented in this encounter Care Teams Sleeve Baster Relationship Specialty Start Date End Date Carley Luque MD [address] [place] [address] [place] [address] PCP - General Family Medicine 08/23/22 documented as of this encounter
--- OUTSIDE RECORDS SUMMARY | 2024-12-05 12:02 | XMS_ITS | Encounter Summary ---
Author Organization [facility] Address [address] [place] [address] Care Team Providers Care Reed Repairer Name Role Phone Carley Luque MD Primary Care Provider [phone] Reason for Visit * Reason Comments ONGENTYS Encounter Details Date Type Department Care Team (Late st Contact Info) Description 11/05/2024 Telephone [facility] [address] [place] [phone] Provider, Kameron, [address] [place] [address] ONGENTYS Social History Tobacco Use Types Packs/Day Years [...] encounter Miscellaneous Notes * Telephone Encounter - Jones Brewer APRN - 11/05/2024 1:03 PM EST ok * Telephone Encounter - Rachel Davian - 11/05/2024 1:00 PM EST Reji, I spoke with Christen this afternoon to schedule a refill for her Ongentys. She appears to be unsure about what exact symptoms the medication is supposed to be helping her with and not sure if it is effective. She would like to discuss with clinical staff before continuing with the prescription as thecopay is pretty high. Thank you, Rachel * Telephone Encounter - Rachel Davian - 11/05/2024 12:58 PM EST error documented in this encounter Plan of Treatment Upcoming Encounters Date Type Department Care Team (Late st Contact Info) Description 12/20/2024 11:50 AM EST Office Visit [facility] [address] [phone] Jones Brewer, COMPUTER CUSTOMER SUPPORT SPECIALIST 35 [facility] [address] [place] [address] documented as of this encounter Visit Diagnoses Not on filedocumented in this encounter Care Teams Reed Repairer Relationship Specialty Start Date End Date Carley Luque MD [address] [place] [address] PCP - General Family Medicine 08/23/22 documented as of this encounter
[2024-12-05 12:18] VITALS: BP 157/77; PULSE 88; RESP 20
[2024-12-05 12:25] LABS: Appearance Urine Turbid; Color Urine RED; Glucose Urine UA Negative (Negative); Leukocyte Esterase Urine Moderate (2+) (Negative); Nitrite Urine Positive (Negative); PH 6.5 (5.0-9.0); Specific Gravity - Urine 1.025 (1.005-1.025); UMIC TRIGGER UACC YES; Urine Blood Large (3+) (Negative); Urine Ketones 15 mg/dL (Negative); Urine Protein 300 (3+) mg/dL (Neg-Trace)
[2024-12-05 12:37] LABS: Bacteria Urine 4+ (None Seen); Hyaline Casts Urine 0-2 /LPF (0-2); RBC Urine >20 /HPF (0-2); UACC Culture Trigger YES; WBC Urine >50 /HPF (0-5)
[2024-12-05 12:42] LABS: MANUAL DIFF FLAG NO
--- NOTE | 2024-12-05 12:45 | PC.NURSE ---
Pt BIBA from independent living after fall, was able to press her button. Pt reported she was in bathroom getting ready for shower when she fell and hit her head and right shoulder, denies LOC. Not on blood thinners. C- collar by EMS. Alert and oriented, breathing even and unlabored, skin warm and dry. Skin tear to lower left leg. No obvious deformities noted. Neuros intact. Afib on monitor. VSS. Son at bedside reporting pt no longer safe at independent living, needs higher level of care
[2024-12-05 12:46] LABS: Basophils Absolute Auto 0.1 X10*3/uL (0.0-0.2); Basophils Percent Auto 0.8 % (0-2); Eosinophils Absolute Auto 0.2 X10*3/uL (0.0-0.4); Eosinophils Percent Auto 1.9 % (0-4); Hematocrit 31.2 % (37.0-47.0); Hemoglobin 10.6 g/dl (12.0-16.0); Imm Gran Abs Auto 0.02 X10*3/uL (0.00-0.03); Imm Gran Pct Auto 0.2 % (0.0-0.4); Lymphocytes Absolute Auto 0.7 X10*3/uL (1.2-4.9); Lymphocytes Percent Auto 8.3 % (20-40); Mean Platelet Volume 9.7 fL (9.4-12.3); Monocytes Absolute Auto 0.7 X10*3/uL (0.1-1.2); Monocytes Percent Auto 8.1 % (2-11); Neutrophils Absolute Auto 7.1 x10*3/uL (2.0-8.3); Neutrophils Percent Auto 80.7 % (45-73); Platelet Count 253 X10*3/uL (160-400); Red Blood Count 3.12 X10*6/uL (4.20-5.50); Red Cell Distribution Width 14.9 % (11.0-16.0); White Blood Count 8.8 X10*3/uL (4.8-10.8)
[2024-12-05 12:50] LABS: INTERNATIONAL NORM RATIO 1.1 (0.9-1.1); Prothrombin Time 12.4 SEC (10.9-12.4)
[2024-12-05 13:02] LABS: Alanine Aminotransferase < 6 U/L (0-31); Alkaline Phosphatase 78 U/L (39-117); Anion Gap 12 (12-20); Aspartate Amino Transferase 23 U/L (5-31); Bilirubin Direct 0.2 mg/dL (0.0-0.5); Bilirubin Total 0.4 mg/dL (0.0-1.0); Blood Urea Nitrogen 18 mg/dL (9-16); Calcium 8.4 mg/dL (8.4-10.2); Carbon Dioxide 22 mmol/L (22-29); Chloride 105 mmol/L (96-108); Creatinine Clr Calc Pharmacy 40.2; Estimated Glomerular Filt Rate > 60; Glucose Random 115 mg/dL (60-115); Potassium 4.6 mmol/L (3.3-5.1); Sodium 134 mmol/L (135-145)
--- NOTE | 2024-12-05 13:07 | PC.NURSE ---
Upon straight cath, large amount of dark red urine. [place] pocket of air around bladder area. Provider alerted and shown immediately. Cath with no issues, intact
[2024-12-05] MEDS: iohexoL 350 MG/ML 100 ML INFUS..BTL IV (13:40)
[2024-12-05] MEDS: cefTRIAXone sodium 1 GM VIAL IVPUSH (13:42)
[2024-12-05 14:16] LABS: Influenza A PCR NEGATIVE (Negative); Influenza B PCR NEGATIVE (Negative); Resp Syncy Virus RNA Qual PCR NEGATIVE (Negative); SARS COV2 PCR INHOUSE NEGATIVE (Negative)
[2024-12-05] MEDS: Carbidopa/Levodopa 25/100 TABLET 1 TAB PO (14:35)
--- NOTE | 2024-12-05 15:09 | PM.IMHP ---
History of Present Illness Date of Service: 12/05/24 Chief Complaint: Fall, Bladder air An 84 years old lady with PMH of Parkinson, Lumber stenosis, rectal prolapse, HLD, HTN, Falls among others who presents to the hospital after a fall at living facility. The patient was in bathroom when her walker get caught and she felt backward hitting her right shoulder and head. denies any LOC, altered mentation, abnormal movements. She reports right shoulder pain. Denies any dizziness or lightheadedness. No chest pain, palpitations, SOB, nausea, vomiting, diarrhea or urinary symptoms. She has chronic diarrhea\constipation problems related to chronic non-operaple rectal prolapse that is managed symptomatically. In ED found to have bladder wall air and air within the bladder. UA negative for infection. discussed with Urology who recommended monitoring inpatient with Lau and IV Abx will be admitted for further work up and management. Review of Systems Review of Systems: No fever, chills or weakness No chest pain, palpitation No shortness of breath or coughing No abdominal pain, nausea or vomiting No urinary symptoms No wounds Shoulder pain right PMFSH Medical History Rectal prolapse Parkinsons disease Surgical History No pertinent past surgical history Social History Alcohol intake: never Patient Tobacco Use Status: Never used Tobacco Smoked in Last 30 Days: No Use of substances other than those prescribed or required for medical reasons: No Advance Directives: No Advance Directives Information Provided: Yes Meds Allergies Allergy/AdvReac Type Severity Reaction Status Date / Time ciprofloxacin [From Cipro] Allergy Severe unknown Verified 12/05/24 11:21 Sulfa (Sulfonamide Allergy Severe unknown Verified 07/17/24 10:08 Antibiotics) Home Medications ?Medication ?Instructions ?Recorded ?Confirmed ?Last Taken ?Type albuterol sulfate 90 mcg/actuation inhalation 07/17/24 07/17/24 Unknown History aerosol inhaler amlodipine 5 mg tablet 5 mg PO DAILY 07/17/24 07/17/24 Unknown History aspirin 81 mg tablet,delayed 81 mg PO DAILY 07/17/24 07/17/24 Unknown History release (Adult Low Dose Aspirin) atorvastatin 20 mg tablet 20 mg PO DAILY 07/17/24 07/17/24 Unknown History carbidopa ER 25 mg-levodopa 100 mg 1 tab PO BID 07/17/24 07/17/24 Unknown History tablet,extended release desvenlafaxine succinate 50 mg 50 mg PO DAILY 07/17/24 07/17/24 Unknown History tablet,extended release 24 hr duloxetine 20 mg capsule,delayed 20 mg PO DAILY 07/17/24 07/17/24 Unknown History release estradiol 0.01% (0.1 mg/gram) vaginal 07/17/24 07/17/24 Unknown History vaginal cream fluticasone propionate 50 spray intranasal 07/17/24 07/17/24 Unknown History mcg/actuation nasal spray,suspension gabapentin 100 mg capsule 100 mg PO DAILY 07/17/24 07/17/24 Unknown History gabapentin 300 mg capsule 300 mg PO DAILY 07/17/24 07/17/24 Unknown History levothyroxine 100 mcg tablet 100 mcg PO DAILY 07/17/24 07/17/24 Unknown History medroxyprogesterone 10 mg tablet 10 mg PO DAILY 07/17/24 07/17/24 Unknown History sertraline 25 mg tablet mg PO 07/17/24 07/17/24 Unknown History Physical Exam Vital Signs and Narrative: Vital Signs: Last Vital Signs Temp 98.3 F 12/05/24 11:16 Pulse 88 12/05/24 12:18 Resp 20 12/05/24 12:18 BP 157/77 H 12/05/24 12:18 Pulse Ox 98 12/05/24 11:16 O2 Del Method Room Air 12/05/24 11:16 BMI result Body Mass Index 17.6 Const: Other: Constitutional : interactive, not in distress Cardiovascular : no JVP, no lower extremity edema Respiratory : bilateral chest movement, not in resp distress Gastrointestinal: soft, lax, Non tender Skin : Warm, Dry Neurological : Alert & oriented , No focal deficit Results Labs 12/05/24 12:39 12/05/24 12:39 Labs: Laboratory Results - last 24 hr 12/05/24 12/05/24 12/05/24 12:19 12:39 13:19 MCV 100.0 H MCH 34.0 H MCHC 34.0 RDW 14.9 Plt Count 253 MPV 9.7 Immature Gran % (Auto) 0.2 Neut % (Auto) 80.7 H Lymph % (Auto) 8.3 L [place] % (Auto) 8.1 Eos % (Auto) 1.9 Baso % (Auto) 0.8 Lymph # (Auto) 0.7 L [place] # (Auto) 0.7 Eos # (Auto) 0.2 Baso # (Auto) 0.1 Abs Immat Gran (auto) 0.02 Absolute Neuts (auto) 7.1 Absolute Nucleated RBC 0.000 Nucleated RBC % (auto) 0.0 PT 12.4 INR 1.1 Anion Gap 12 Estim Creat Clear Calc 40.2 Estimated GFR > 60 Random Glucose 115 Lactic Acid 1.0 Calcium 8.4 Magnesium 2.0 Total Bilirubin 0.4 Direct Bilirubin 0.2 AST 23 ALT < 6 Alkaline Phosphatase 78 Total Protein 6.0 L Albumin 3.0 L Urine Color RED Urine Appearance Turbid Urine pH 6.5 Ur Specific [place] 1.025 Urine Protein 300 (3+) H Urine Glucose (UA) Negative Urine Ketones 15 Urine Blood Large (3+) H Urine Nitrite Positive H Ur Leukocyte Esterase Moderate (2+) H Urine RBC >20 H Urine WBC >50 H Ur Squamous Epith Cells 3-5 Urine Bacteria 4+ Hyaline Casts 0-2 Influenza Type A (PCR) NEGATIVE Influenza Type B (PCR) NEGATIVE RSV RNA Qual (PCR) NEGATIVE SARS-CoV-2 RNA (RT-PCR) NEGATIVE Imaging Radiologist's Impressions: Impressions Head CT 12/05/24 11:16 IMPRESSION: 1. No acute intracranial abnormalities. No fractures. 2. Chronic findings as discussed.. Electronically signed by: Sudarshan Solo MD 12/05/2024 12:11 PM EST RP Cervical Spine CT 12/05/24 11:21 IMPRESSION: 1. No CT evidence of acute cervical spine fracture or injury. Diffuse spondylosis. 2. Laminectomies and posterior fusion C3-C5. No hardware abnormality or loosening. 3. Suspect moderate central canal stenosis at C5-6. Evaluation inherently limited due to modality. 4. See above for details. Electronically signed by: Sudarshan Solo MD 12/05/2024 12:18 PM [facility] RP Lumbar Spine CT 12/05/24 11:28 IMPRESSION: 1. Age-indeterminate fracture through a large right anterolaterally projecting disc osteophyte superior endplate L3. No displacement. 2. Otherwise, no additional acute fracture or traumatic malalignment evident. 3. There has been fusion of L4-S1 facets. 4. Advanced, severe, multilevel spondylosis with multilevel severe canal stenosis. 5. Emphysema seen throughout the urinary bladder wall, suboptimally imaged, but suspicious for emphysematous cystitis. 6. Obstipation. Anasarca. Small right pleural effusion. -Findings were discussed with Paula Fuentes of the [facility] at 12:35 PM, 12/05/2024. Electronically signed by: Sudarshan Solo MD 12/05/2024 12:43 PM EST RP Shoulder X-Ray 12/05/24 13:00 IMPRESSION: Moderate degenerative changes. Probable rotator cuff calcifications. Electronically signed by: Dawson Bansal MD 12/05/2024 01:13 PM EST RP Abdomen/Pelvis CT 12/05/24 13:07 IMPRESSION: 1. Anasarca with small volume intraperitoneal ascites. Small right pleural effusion. 2. Emphysematous cystitis. No definite fistulous connection to bowel although evaluation is limited due to streak artifact from bilateral hip arthroplasties. 3. Inferior rectal thickening, enhancement, and edema, with small hemorrhoidal varices. Differential includes proctitis versus mass lesion. Would correlate with direct visualization/digital examination. 4. Obstipation. 5. Dilation of the portal veins, and extra and intrahepatic IVC, findings suggestive of right heart failure. Cardiomegaly. 6. Mild thickening and enhancement of the duodenum, possibly secondary to increased right heart pressures, although duodenitis is a consideration. 7. Mild atrophy and diffuse cortical thinning/scarring right kidney. 8. Numerous additional ancillary findings as discussed. Also refer to the dedicated lumbar CT performed earlier. Electronically signed by: Sudarshan Solo MD 12/05/2024 02:19 PM EST RP Head CT 12/05/24 13:20 IMPRESSION: No acute fracture, bony calvarium. No acute intracranial hemorrhage. Small vessel occlusive disease. Superimposed acute stroke/nonhemorrhagic ischemia cannot be excluded. Electronically signed by: Bret Cornejo MD 12/05/2024 02:02 PM EST RP Assessment and Plan (1) Emphysematous cystitis: Status: Acute (2) UTI (urinary tract infection): Status: Acute (3) Fall: Status: Acute Plan An 84 years old lady with PMH of Parkinson, Lumber stenosis, rectal prolapse, HLD, HTN, Falls among others who presents to the hospital after a fall at living facility. Fall Mechanical in nature PT eval UTI with Emphysematous cystitis Place Lau pending cultures IV Abx Urology consult Underweight Add Ensure Anasarca reported on CT scan but clinically she is not. Hx rectal prolapse conservative measures CT reporting Inferior rectal thickening, enhancement, and edema, with small hemorrhoidal varices. Right sided heart failure CT reporting Dilation of the portal veins, and extra and intrahepatic IVC DVT PPx Heparin The patient will need 2 overnight hospital stay for treatment of UTI and fall pending PT eval and cultures Quality Stroke Does the patient have a stroke diagnosis?: No VTE Prior VTE?: No VTE Risk Level:: Medical - moderate - high VTE Device Contraindication: Treatment Not Indicated VTE Drug Contraindication: N/A - Med Ordered
[2024-12-05 15:29] VITALS: BP 173/91; PULSE 90; RESP 16; TEMP 37.2; O2SAT 97
[2024-12-05] MEDS: 0.9 % Sodium Chloride Flush 3 ML SYRINGE IVFLUSH (16:13)
--- NOTE | 2024-12-05 16:16 | PC.NURSE ---
Lau placed with no issues. Urine appears less bloody overall.
--- NOTE | 2024-12-05 18:10 | PC.NURSE ---
Pt swallows pills whole with no issues. Ate dinner with no issues. In bed in no acute distress. son at bedside
[2024-12-05 18:16] VITALS: BP 140/78; PULSE 88; RESP 16; TEMP 36.8
--- NOTE | 2024-12-05 18:55 | PHA.MEDREC ---
Pharmacy Consult ? Medication Reconciliation Pharmacy has completed the medication reconciliation. Spoke to patient's son Manny at bedside to confirm medication list. He verified pt takes carbidopa-levodopa 25 mg-100 mg (immediate release) 1 tab qid @0500,0900,1300 and 1700 and the carbidopa ER 25 mg- levodopa ER 100 mg 2 tabs @ bedtime. Patient also takes sodium chloride 1000 mg tablet 2 tabs in the morning and psyllium caps 2 grams bid. She no longer takes albuterol inhaler, amlodipine, atorvastatin, desvenlafaxine, duloxetine, fluticasone nasal sprays, gabapentin 300 mg (she takes 100 mg at bedtime) nor sertraline. Last dose of medications was this morning 12/05/24.
[2024-12-05 19:26] VITALS: BP 153/79; PULSE 80; RESP 16; TEMP 37.6; O2SAT 90
[2024-12-05] MEDS: Aspirin Enteric Coated 81 MG TABLET.DR PO (20:59)
[2024-12-05] MEDS: Carbidopa/Levodopa CR 25/100 TABLET.ER 2 TAB PO (20:59)
[2024-12-05] MEDS: Heparin Sodium,Porcine 5,000 UNIT/ML VIAL 5000 UNIT SUBCUT (20:59)
[2024-12-05] MEDS: Gabapentin 100 MG CAPSULE PO (20:59)
--- NOTE | 2024-12-05 21:17 | PC.NURSE ---
pt medicated per MAR, son at bedside. per pt's request, skin tear/wound to L leg were wrapped, pt c/o pain and irritation from the blanket on the open wounds. pt resting comfortably. aguirre cath draining dark yellow urine. no apparent distress at this time. call anna w/in reach
[2024-12-05 21:43] VITALS: BP 151/79; PULSE 82; RESP 11; TEMP 37.3; O2SAT 97
[2024-12-06] VITALS (10 sets, daily range): BP systolic 134–176; BP diastolic 62–94; PULSE 79–96; RESP 17–20; TEMP 36.3–37.3; O2SAT 96–97; BMI 21.5
[2024-12-06] MEDS: Levothyroxine Sodium 100 MCG TABLET PO (05:33)
[2024-12-06] MEDS: Carbidopa/Levodopa 25/100 TABLET 2 TAB PO ×3 (05:33→17:47)
[2024-12-06] MEDS: 0.9 % Sodium Chloride Flush 3 ML SYRINGE IVFLUSH ×4 (05:33→23:51)
--- NOTE | 2024-12-06 08:03 | PC.NURSE ---
Awaiting missing 09:00 Carbidopa/Levodopa and Medroxyprogesterone per pharmacy at this time.
[2024-12-06 09:06] LABS: Hematocrit 32.1 % (37.0-47.0); Hemoglobin 10.6 g/dl (12.0-16.0); Mean Corpuscular Hemoglobin 33.3 pg (27.0-33.0); Mean Corpuscular Volume 100.9 fL (80.0-98.0); Mean Platelet Volume 9.9 fL (9.4-12.3); Platelet Count 267 X10*3/uL (160-400); Red Blood Count 3.18 X10*6/uL (4.20-5.50); Red Cell Distribution Width 14.8 % (11.0-16.0)
[2024-12-06] MEDS: Heparin Sodium,Porcine 5,000 UNIT/ML VIAL 5000 UNIT SUBCUT ×2 (09:08→20:16)
[2024-12-06 09:24] LABS: Anion Gap 9 (12-20); Blood Urea Nitrogen 15 mg/dL (9-16); Calcium 8.6 mg/dL (8.4-10.2); Carbon Dioxide 24 mmol/L (22-29); Chloride 106 mmol/L (96-108); Estimated Glomerular Filt Rate > 60; Glucose Random 124 mg/dL (60-115); Potassium 3.9 mmol/L (3.3-5.1); Sodium 135 mmol/L (135-145)
--- NOTE | 2024-12-06 09:31 | HO.PM.IMPN ---
Subjective Subjective Date of Service: 12/06/24 Interval History: Seen and evaluated Feels little better no much suprapubic pain no other events Review of Systems Review of Systems: Yes all other systems are reviewed and are negative Physical Exam Vital Signs: Vital Signs: Last Vital Signs Temp 98.2 F 12/06/24 08:04 Pulse 88 12/06/24 08:04 Resp 20 12/06/24 08:04 BP 172/88 H 12/06/24 08:04 Pulse Ox 97 12/06/24 08:04 O2 Del Method Room Air 12/06/24 08:04 BMI result Body Mass Index 17.6 Const: Other: Constitutional : interactive, not in distress Cardiovascular : no JVP, no lower extremity edema Respiratory : bilateral chest movement, not in resp distress Gastrointestinal: soft, lax, Non tender Skin : Warm, Dry Neurological : Alert & oriented , No focal deficit Objective Data Active Medications Acetaminophen (Acetaminophen 325 Mg Tablet) 650 mg PO Q6H PRN PRN Reason: Pain, Mild 1-3,fever,headache Aspirin (Aspirin Enteric Coated 81 Mg Tablet.Dr) 81 mg PO DAILY@2100 [facility] Last Admin: 12/05/24 20:59 Dose: 81 mg Documented By: DONNELL Benzonatate (Benzonatate 100 Mg Capsule) 100 mg PO TID PRN PRN Reason: Cough Calcium Carbonate (Calcium Carbonate 750 Mg Tab.Chew) 750 mg PO Q4H PRN PRN Reason: Heartburn Carbidopa/Levodopa (Carbidopa/Levodopa Cr 25/100 Tablet.Er) 2 tab PO BEDTIME [facility] Last Admin: 12/05/24 20:59 Dose: 2 tab Documented By: DONNELL Carbidopa/Levodopa (Carbidopa/Levodopa 25/100 Tablet) 2 tab PO QID@0500,0900,1300,1700 [facility] Last Admin: 12/06/24 05:33 Dose: 2 tab Documented By: DONNELL Ceftriaxone Sodium (Ceftriaxone Sodium 1 Gm Vial) 1 gm IVPUSH Q24H [facility] Gabapentin (Gabapentin 100 Mg Capsule) 100 mg PO BEDTIME [facility] Last Admin: 12/05/24 20:59 Dose: 100 mg Documented By: DONNELL Heparin Sodium (Porcine) (Heparin Sodium,Porcine 5,000 Unit/Ml Vial) 5,000 unit SUBCUT Q12H [facility] Last Admin: 12/06/24 09:08 Dose: 5,000 unit Documented By: MODE Levothyroxine Sodium (Levothyroxine Sodium 100 Mcg Tablet) 100 mcg PO DAILY@0600 [facility] Last Admin: 12/06/24 05:33 Dose: 100 mcg Documented By: DONNELL Magnesium Hydroxide (Milk Of Magnesia 30 Ml Oral.Susp) 30 ml PO DAILY PRN PRN Reason: Constipation Medroxyprogesterone Acetate (Medroxyprogesterone Acetate 5 Mg Tablet) 10 mg PO DAILY [facility] Melatonin (Melatonin 3 Mg Tablet) 6 mg PO BEDTIME PRN PRN Reason: Insomnia Ondansetron HCl (Ondansetron Hcl 4 Mg/2 Ml Vial) 4 mg IVPUSH Q8H PRN PRN Reason: Nausea and Vomiting Sodium Chloride (0.9 % Sodium Chloride Flush 3 Ml Syringe) 3 ml IVFLUSH QSHIFT [facility] Last Admin: 12/06/24 09:08 Dose: 3 ml Documented By: MODE Sodium Chloride (Sodium Chloride Tab 1 Gm Tablet) 1 gm PO DAILY [facility] Labs 12/06/24 08:48 12/06/24 08:48 Labs: Laboratory Results - last 24 hr 12/05/24 12/05/24 12/05/24 12:19 12:39 13:19 MCV 100.0 H MCH 34.0 H MCHC 34.0 RDW 14.9 Plt Count 253 MPV 9.7 Immature Gran % (Auto) 0.2 Neut % (Auto) 80.7 H Lymph % (Auto) 8.3 L Ulster % (Auto) 8.1 Eos % (Auto) 1.9 Baso % (Auto) 0.8 Lymph # (Auto) 0.7 L Ulster # (Auto) 0.7 Eos # (Auto) 0.2 Baso # (Auto) 0.1 Abs Immat Gran (auto) 0.02 Absolute Neuts (auto) 7.1 Absolute Nucleated RBC 0.000 Nucleated RBC % (auto) 0.0 PT 12.4 INR 1.1 Anion Gap 12 Estim Creat Clear Calc 40.2 Estimated GFR > 60 Random Glucose 115 Lactic Acid 1.0 Calcium 8.4 Magnesium 2.0 Total Bilirubin 0.4 Direct Bilirubin 0.2 AST 23 ALT < 6 Alkaline Phosphatase 78 Total Protein 6.0 L Albumin 3.0 L TSH 1.20 Urine Color RED Urine Appearance Turbid Urine pH 6.5 Ur Specific Olga 1.025 Urine Protein 300 (3+) H Urine Glucose (UA) Negative Urine Ketones 15 Urine Blood Large (3+) H Urine Nitrite Positive H Ur Leukocyte Esterase Moderate (2+) H Urine RBC >20 H Urine WBC >50 H Ur Squamous Epith Cells 3-5 Urine Bacteria 4+ Hyaline Casts 0-2 Influenza Type A (PCR) NEGATIVE Influenza Type B (PCR) NEGATIVE RSV RNA Qual (PCR) NEGATIVE SARS-CoV-2 RNA (RT-PCR) NEGATIVE 12/06/24 08:48 MCV 100.9 H MCH 33.3 H MCHC 33.0 RDW 14.8 Plt Count 267 MPV 9.9 Immature Gran % (Auto) Neut % (Auto) Lymph % (Auto) Ulster % (Auto) Eos % (Auto) Baso % (Auto) Lymph # (Auto) Ulster # (Auto) Eos # (Auto) Baso # (Auto) Abs Immat Gran (auto) Absolute Neuts (auto) Absolute Nucleated RBC 0.000 Nucleated RBC % (auto) 0.0 PT INR Anion Gap 9 L Estim Creat Clear Calc 45.0 Estimated GFR > 60 Random Glucose 124 H Lactic Acid Calcium 8.6 Magnesium Total Bilirubin Direct Bilirubin AST ALT Alkaline Phosphatase Total Protein Albumin TSH Urine Color Urine Appearance Urine pH Ur Specific Olga Urine Protein Urine Glucose (UA) Urine Ketones Urine Blood Urine Nitrite Ur Leukocyte Esterase Urine RBC Urine WBC Ur Squamous Epith Cells Urine Bacteria Hyaline Casts Influenza Type A (PCR) Influenza Type B (PCR) RSV RNA Qual (PCR) SARS-CoV-2 RNA (RT-PCR) Assessment and Plan (1) Fall: Status: Acute (2) UTI (urinary tract infection): Status: Acute (3) Emphysematous cystitis: Status: Acute Plan An 84 years old lady with PMH of Parkinson, Lumber stenosis, rectal prolapse, HLD, HTN, Falls among others who presents to the hospital after a fall at living facility. UTI with Emphysematous cystitis reported in CT scan, likely related to the infx Keep Lau pending cultures Continue Ceftriaxone and add Flagyl for anareobic coverage pending final cultures Urology consult Fall Mechanical in nature PT eval Underweight Add Ensure Anasarca reported on CT scan but clinically she is not fluid overloaded increase protein intake Hx rectal prolapse conservative measures CT reporting Inferior rectal thickening, enhancement, and edema, with small hemorrhoidal varices. Right sided heart failure CT reporting Dilation of the portal veins, and extra and intrahepatic IVC DVT PPx Heparin The patient will need overnight hospital stay for treatment of UTI and fall pending PT eval and cultures Quality Stroke Does the patient have a stroke diagnosis?: No VTE Prior VTE?: No VTE Risk Level:: Medical - moderate - high VTE Device Contraindication: Treatment Not Indicated VTE Drug Contraindication: N/A - Med Ordered
--- NOTE | 2024-12-06 11:26 | MHC.CM.PN ---
Addendum entered by Jerrica Xiong 12/06/24 13:13: CM SPOKE TP PTS SON, IOANA [phone], HE REPORTS THE PT LIVES IN THE [facility] [place] SHE CURRENTLY HAS ONE HOUR PER DAY OR PRIVATE PAY [employer] AND IS ON THE WAIT LIST FOR THE [facility] SHE USES A WALK[employer] AND NO OTHER DME HE SAYS HE PROVIDED A COPY OF THE HCP IN THE ED PCP: AYANNA BURCIAGA IMM DELIVERED IAONA CONFIRMS HE AND THE PT WOULD PREFER SHE TO GO TO [facility] DCP: [facility] Original Note: ARACELI RECEIVED A CALL FROM [facility] SHE REPORTS THE PTS SON CONTACTED HER YESTERDAY TO DISCUSS CONCERNS PT LIVES ALONE IN THE [facility] BUT IS WAITING FOR AN OPENING AT THE [facility] SHE SAYS THE PTS SON REALLY THINKS THE PT WILL NEED STR AND ASKS THAT A REFERRAL BE SENT TO [facility]
[2024-12-06] MEDS: metroNIDAZOLE/NS 500 MG/100 ML PIGGYBACK 100 MG IV ×2 (12:10→17:44)
[2024-12-06] MEDS: medroxyPROGESTERone Acetate 5 MG TABLET 10 MG PO (12:16)
[2024-12-06] MEDS: Sodium Chloride Tab 1 GM TABLET PO (12:17)
--- NOTE | 2024-12-06 13:26 | MHC.CLN ---
NUTRITION DIET=2 GRAM SODIUM. PER MD, ENSURE TID. SUPPLEMENT PROVIDES 1050 KCALS, 60 G PROTEIN. WEIGHT IN ED=40.9 KG. WEIGHT ON UNIT=50 KG WITH BMI=21.5. PRIOR WEIGHT HX 07/17/24=48 KG. MONITOR PO INTAKE WEEKLY.
[2024-12-06] MEDS: Gabapentin 100 MG CAPSULE PO (20:17)
[2024-12-06] MEDS: Carbidopa/Levodopa CR 25/100 TABLET.ER 2 TAB PO (20:17)
[2024-12-06] MEDS: Aspirin Enteric Coated 81 MG TABLET.DR PO (20:17)
[2024-12-07] VITALS (7 sets, daily range): BP systolic 117–179; BP diastolic 60–86; PULSE 63–88; RESP 16–18; TEMP 36.1–37.2; O2SAT 96–99
--- NOTE | 2024-12-07 02:23 | PC.NURSE ---
pt's BP elevated 176/80, pest control service sales agent provider notified; continue to monitor and recheck in the morning
[2024-12-07] MEDS: metroNIDAZOLE/NS 500 MG/100 ML PIGGYBACK 100 MG IV ×2 (03:01→09:30)
[2024-12-07] MEDS: hydrALAZINE HCl 20 MG/ML VIAL 10 MG IVPUSH (04:38)
[2024-12-07] MEDS: Levothyroxine Sodium 100 MCG TABLET PO (05:29)
[2024-12-07] MEDS: Carbidopa/Levodopa 25/100 TABLET 2 TAB PO ×4 (05:29→16:14)
[2024-12-07] MEDS: Sodium Chloride Tab 1 GM TABLET PO (08:45)
[2024-12-07] MEDS: Heparin Sodium,Porcine 5,000 UNIT/ML VIAL 5000 UNIT SUBCUT ×2 (08:45→20:05)
[2024-12-07] MEDS: 0.9 % Sodium Chloride Flush 3 ML SYRINGE IVFLUSH ×2 (08:45→16:14)
[2024-12-07] MEDS: medroxyPROGESTERone Acetate 5 MG TABLET 10 MG PO (08:45)
--- NOTE | 2024-12-07 10:58 | P.PNIM_ITS ---
Subjective Subjective Date of Service: 12/07/24 Interval History: Seen and evaluated Feels little better, more confused overnight no reported pain no other events Review of Systems Review of Systems: Yes all other systems are reviewed and are negative Physical Exam 2 Vital Signs: Vital Signs: Last Vital Signs Temp 97.3 F 12/07/24 07:12 Pulse 86 12/07/24 07:12 Resp 16 12/07/24 07:12 BP 125/60 12/07/24 07:12 Pulse Ox 97 12/07/24 07:12 O2 Del Method Room Air 12/07/24 07:12 BMI result Body Mass Index 21.5 Const: Other: Constitutional : interactive, not in distress Cardiovascular : no JVP, no lower extremity edema Respiratory : bilateral chest movement, not in resp distress Gastrointestinal: soft, lax, Non tender Skin : Warm, Dry Neurological : Alert & oriented to self but easily confused , No focal deficit Objective Data Active Medications Acetaminophen (Acetaminophen 325 Mg Tablet) 650 mg PO Q6H PRN PRN Reason: Pain, Mild 1-3,fever,headache Aspirin (Aspirin Enteric Coated 81 Mg Tablet.) 81 mg PO DAILY@2100 [facility] Last Admin: 12/06/24 20:17 Dose: 81 mg Documented By: NASIR Benzonatate (Benzonatate 100 Mg Capsule) 100 mg PO TID PRN PRN Reason: Cough Calcium Carbonate (Calcium Carbonate 750 Mg Tab.Chew) 750 mg PO Q4H PRN PRN Reason: Heartburn Carbidopa/Levodopa (Carbidopa/Levodopa Cr 25/100 Tablet.Er) 2 tab PO BEDTIME [facility] Last Admin: 12/06/24 20:17 Dose: 2 tab Documented By: NASIR Carbidopa/Levodopa (Carbidopa/Levodopa 25/100 Tablet) 2 tab PO QID@0500,0900,1300,1700 [facility] Last Admin: 12/07/24 08:58 Dose: 2 tab Documented By: AP Ceftriaxone Sodium (Ceftriaxone Sodium 1 Gm Vial) 1 gm IVPUSH Q24H [facility] Gabapentin (Gabapentin 100 Mg Capsule) 100 mg PO BEDTIME [facility] Last Admin: 12/06/24 20:17 Dose: 100 mg Documented By: NASIR Heparin Sodium (Porcine) (Heparin Sodium,Porcine 5,000 Unit/Ml Vial) 5,000 unit SUBCUT Q12H [facility] Last Admin: 12/07/24 08:45 Dose: 5,000 unit Documented By: AP Levothyroxine Sodium (Levothyroxine Sodium 100 Mcg Tablet) 100 mcg PO DAILY@0600 [facility] Last Admin: 12/07/24 05:29 Dose: 100 mcg Documented By: NASIR Magnesium Hydroxide (Milk Of Magnesia 30 Ml Oral.Susp) 30 ml PO DAILY PRN PRN Reason: Constipation Medroxyprogesterone Acetate (Medroxyprogesterone Acetate 5 Mg Tablet) 10 mg PO DAILY [facility] Last Admin: 12/07/24 08:45 Dose: 10 mg Documented By: AP Melatonin (Melatonin 3 Mg Tablet) 6 mg PO BEDTIME PRN PRN Reason: Insomnia Ondansetron HCl (Ondansetron Hcl 4 Mg/2 Ml Vial) 4 mg IVPUSH Q8H PRN PRN Reason: Nausea and Vomiting Sodium Chloride (0.9 % Sodium Chloride Flush 3 Ml Syringe) 3 ml IVFLUSH QSHIFT [facility] Last Admin: 12/07/24 08:45 Dose: 3 ml Documented By: AP Sodium Chloride (Sodium Chloride Tab 1 Gm Tablet) 1 gm PO DAILY [facility] Last Admin: 12/07/24 08:45 Dose: 1 gm Documented By: AP Labs 12/06/24 08:48 12/06/24 08:48 Microbiology Microbiology Results: Microbiology 12/05/24 13:19 Urine Culture - Final Urine Catheterized - Lau Catheter Escherichia coli 12/05/24 13:18 Blood Culture - Preliminary Blood - Venous No growth after 24 hours. 12/05/24 13:18 Blood Culture - Preliminary Blood - Venous No growth after 24 hours. Assessment and Plan (1) Fall: Status: Acute (2) UTI (urinary tract infection): Status: Acute (3) Emphysematous cystitis: Status: Acute Plan An 84 years old lady with PMH of Parkinson, Lumber stenosis, rectal prolapse, HLD, HTN, Falls among others who presents to the hospital after a fall at living facility. UTI with Emphysematous cystitis reported in CT scan, likely related to the infx Keep Lau Continue Ceftriaxone and dc Flagyl as cultures growing E.Coli Urology consult Fall Mechanical in nature PT eval rec SNF placement Underweight Add Ensure Anasarca reported on CT scan but clinically she is not fluid overloaded increase protein intake Hx rectal prolapse conservative measures CT reporting Inferior rectal thickening, enhancement, and edema, with small hemorrhoidal varices. Right sided heart failure CT reporting Dilation of the portal veins, and extra and intrahepatic IVC DVT PPx Heparin The patient will need overnight hospital stay for treatment of UTI and fall pending clinical improvement and SNF placement. Quality Stroke Does the patient have a stroke diagnosis?: No VTE Prior VTE?: No VTE Risk Level:: Medical - moderate - high VTE Device Contraindication: Treatment Not Indicated VTE Drug Contraindication: N/A - Med Ordered
[2024-12-07] MEDS: cefTRIAXone sodium 1 GM VIAL IVPUSH (11:34)
[2024-12-07] MEDS: Lactulose 20 GM/30 ML SOLUTION PO ×2 (11:35→20:05)
--- NOTE | 2024-12-07 11:54 | P.CNUR_ITS ---
History of Present Illness Consult details Consult date: 12/07/24 Narrative: Christen is an 84-year-old female admitted with mental status changes urinalysis nitrite positive CT scan consistent with emphysematous cystitis. Lau catheter is in place. Urine culture E coli morgan sensitive. Comorbidity rectal prolapse. Review of Systems 2 Review of Systems: Yes all other systems are reviewed and are negative Constitutional: Constitutional: Reports no additional constitutional complaints Eyes: Eyes: Reports no additional eye complaints ENT: Reports system reviewed and no additional complaints, except as documented Cardiovascular: Cardiovascular: Reports no additional cardiovascular complaints Respiratory: Respiratory: Reports no additional respiratory complaints Gastrointestinal: Gastrointestinal: Reports no additional gastrointestinal complaints Genitourinary: Genitourinary: Reports as per HPI Musculoskeletal: Musculoskeletal: Reports no additional musculoskeletal complaints Integumentary/Breasts: Skin/Breast: Reports system reviewed and no additional complaints, except as docu Neurologic: Reports system reviewed and no additional complaints, except as documented Psychiatric: Psychiatric: Reports no additional psychiatric complaints Endocrine: Endocrine: Reports no additional endocrine complaints Hematologic/Lymphatic: Hematologic/Lymphatic: Reports no additional hematologic/lymphatic complaints Allergic/Immunologic: Allergic/Immunologic: Reports no additional allergic/immunologic complaints [facility] Past Medical History Medical History Rectal prolapse Parkinsons disease Surgical History Surgical History No pertinent past surgical history Social History Social History Household Members: None Housing: Apartment Do you presently have visiting nurse or other home services: Yes Alcohol intake: never Patient Tobacco Use Status: Never used Tobacco Smoked in Last 30 Days: No Use of substances other than those prescribed or required for medical reasons: No Currently Displaying Signs/Symptoms of Drug Intoxication Withdrawal: No Have you been hit, kicked, punched, or otherwise hurt by someone within the past year? If so, by whom?: No Do you feel safe in your current relationship?: No Current Relationship Is there a partner from a previous relationship who is making you feel unsafe now?: No Are you made to feel afraid or neglected: No Advance Directives: No Advance Directives Information Provided: Yes Do you have a plan to hurt others: No Plan Recently lost weight without trying: No How much weight loss: Not applicable Eating poorly because of decreased appetite: No Nutrition screen score: 0 Nutrition Risks: No Nutritional Risk Patient : No : No Poor oral hygiene: No service: No Meds Allergies Allergy/AdvReac Type Severity Reaction Status Date / Time ciprofloxacin [From Cipro] Allergy Severe unknown Verified 12/05/24 11:21 Sulfa (Sulfonamide Allergy Severe unknown Verified 07/17/24 10:08 Antibiotics) Active Medications: Current Medications Acetaminophen (Acetaminophen 325 Mg Tablet) 650 mg PO Q6H PRN PRN Reason: Pain, Mild 1-3,fever,headache Aspirin (Aspirin Enteric Coated 81 Mg Tablet.Dr) 81 mg PO DAILY@2100 [facility] Last Admin: 12/06/24 20:17 Dose: 81 mg Benzonatate (Benzonatate 100 Mg Capsule) 100 mg PO TID PRN PRN Reason: Cough Calcium Carbonate (Calcium Carbonate 750 Mg Tab.Chew) 750 mg PO Q4H PRN PRN Reason: Heartburn Carbidopa/Levodopa (Carbidopa/Levodopa Cr 25/100 Tablet.Er) 2 tab PO BEDTIME [facility] Last Admin: 12/06/24 20:17 Dose: 2 tab Carbidopa/Levodopa (Carbidopa/Levodopa 25/100 Tablet) 2 tab PO QID@0500,0900,1300,1700 [facility] Last Admin: 12/07/24 08:58 Dose: 2 tab Ceftriaxone Sodium (Ceftriaxone Sodium 1 Gm Vial) 1 gm IVPUSH Q24H [facility] Last Admin: 12/07/24 11:34 Dose: 1 gm Gabapentin (Gabapentin 100 Mg Capsule) 100 mg PO BEDTIME [facility] Last Admin: 12/06/24 20:17 Dose: 100 mg Heparin Sodium (Porcine) (Heparin Sodium,Porcine 5,000 Unit/Ml Vial) 5,000 unit SUBCUT Q12H [facility] Last Admin: 12/07/24 08:45 Dose: 5,000 unit Lactulose (Lactulose 20 Gm/30 Ml Solution) 20 gm PO BID [facility] Last Admin: 12/07/24 11:35 Dose: 20 gm Levothyroxine Sodium (Levothyroxine Sodium 100 Mcg Tablet) 100 mcg PO DAILY@0600 [facility] Last Admin: 12/07/24 05:29 Dose: 100 mcg Magnesium Hydroxide (Milk Of Magnesia 30 Ml Oral.Susp) 30 ml PO DAILY PRN PRN Reason: Constipation Medroxyprogesterone Acetate (Medroxyprogesterone Acetate 5 Mg Tablet) 10 mg PO DAILY [facility] Last Admin: 12/07/24 08:45 Dose: 10 mg Melatonin (Melatonin 3 Mg Tablet) 6 mg PO BEDTIME PRN PRN Reason: Insomnia Ondansetron HCl (Ondansetron Hcl 4 Mg/2 Ml Vial) 4 mg IVPUSH Q8H PRN PRN Reason: Nausea and Vomiting Sodium Chloride (0.9 % Sodium Chloride Flush 3 Ml Syringe) 3 ml IVFLUSH QSHIFT [facility] Last Admin: 12/07/24 08:45 Dose: 3 ml Sodium Chloride (Sodium Chloride Tab 1 Gm Tablet) 1 gm PO DAILY [facility] Last Admin: 12/07/24 08:45 Dose: 1 gm Home Medications ?Medication ?Instructions ?Recorded ?Confirmed ?Last Taken ?Type aspirin 81 mg tablet,delayed 81 mg PO DAILY@2100 07/17/24 12/05/24 12/04/24 History release (Adult Low Dose Aspirin) carbidopa ER 25 mg-levodopa 100 mg 2 tab PO BEDTIME 07/17/24 12/05/24 12/04/24 History tablet,extended release gabapentin 100 mg capsule 100 mg PO BEDTIME 07/17/24 12/05/24 12/04/24 History levothyroxine 100 mcg tablet 100 mcg PO DAILY@0600 07/17/24 12/05/24 12/05/24 History medroxyprogesterone 10 mg tablet 10 mg PO DAILY 07/17/24 12/05/24 12/05/24 History carbidopa 25 mg-levodopa 100 mg 2 tab PO QID 12/05/24 12/05/24 12/05/24 History tablet psyllium husk 0.52 gram capsule 2.08 g PO BID 12/05/24 12/05/24 12/05/24 History sodium chloride 1,000 mg soluble 1,000 mg PO DAILY 12/05/24 12/05/24 12/05/24 History tablet Physical Exam 2 Vital Signs: Vital Signs: Last Vital Signs Temp 98.1 F 12/07/24 11:24 Pulse 63 12/07/24 11:24 Resp 16 12/07/24 11:24 BP 117/60 12/07/24 11:24 Pulse Ox 99 12/07/24 11:24 O2 Del Method Room Air 12/07/24 11:24 BMI result Body Mass Index 21.5 Const: General: cooperative, healthy appearing and no acute distress O rientation/consciousness: patient oriented x3 HEENT: Head: Yes normal to inspection, Yes normocephalic and Yes atraumatic Eyes: Conjunctivae: conjunctivae normal Neck: Neck: Yes normal visual inspection and Yes trachea midline Chest: Chest palpation & inspection: normal inspection of the chest Resp: Effort & Inspection: normal respiratory effort Cardio: Rate: regular rate GI: Inspection: Yes normal to inspection Neuro: General: patient oriented x3 Psych: Appearance: grossly normal Results Labs 12/06/24 08:48 12/06/24 08:48 Labs: Urine 12/05/24 Range/Units 12:19 Urine Color RED Urine Appearance Turbid Urine pH 6.5 (5.0-9.0) Ur Specific [place] 1.025 (1.005-1.025) Urine Protein 300 (3+) H (Neg-Trace) mg/dL Urine Glucose (UA) Negative (Negative) mg/dL Collected: 12/05/24 Status: COMP Req#: [id number] Received: 12/05/24-1343 Source: Urine Cath Sp Desc: Lau Cath Subm Dr: Paula Fuentes Ordered: Urine Culture Procedure Result Verified Urine Culture Final 12/07/24 Organism 1 Escherichia coli Quant > 100,000 cfu/mL E coli M.I.C. RX --------- --- Ampicillin 4 S Cefazolin (Urine) <=1 S Cefepime <=0.12 S Ceftriaxone <=0.25 S Ciprofloxacin <=0.06 S Gentamicin <=1 S Nitrofurantoin <=16 S Trimethoprim/Sulfamethoxazole <=[address] scan report/results: report reviewed and image reviewed CT scan - pelvis: report reviewed and image reviewed Additional studies: Date of Service: 12/05/24 EXAMINATION: CT ABDOMEN AND PELVIS WITH CONTRAST CLINICAL INFORMATION: Fall, abnormal bladder seen CT lumbar spine. Compressible left lower quadrant mass. COMPARISON: No prior abdominal imaging. CT lumbar performed earlier same day. TECHNIQUE: Multidetector volumetric images were obtained from the superior aspect of the liver through the pubic symphysis following administration 85 mL of Omnipaque 350 intravenous contrast. Sagittal and coronal reformatted images were obtained on the technologist's workstation. Oral contrast: No This CT examination was performed using dose optimization techniques as appropriate, variously including the following: *Automated exposure control *Adjustment of mA and/or kV according to patient size (this includes techniques or standardized protocols for targeted exams where dose is matched to indication/reason for exam; i.e. extremities or head) *Use of iterative reconstruction technique FINDINGS: LUNG BASES: There is cardiac enlargement. There is calcification of the mitral annulus. No pericardial effusion. There is elevated left hemidiaphragm present. There is a small layering effusion on the right. There is mild bibasilar passive atelectasis. LIVER, GALLBLADDER, AND BILIARY TREE: The liver is normal in shape and size. Diffuse periportal edema. No suspicious lesion. No intrahepatic biliary dilatation. Common bile measures 7 mm in the pancreatic head. The gallbladder is somewhat decompressed with no evidence of radiopaque gallstones, gallbladder wall thickening, or obvious pericholecystic inflammatory changes. PANCREAS: Unremarkable. SPLEEN: Unremarkable. ADRENAL GLANDS: Bilateral hyperplasia. KIDNEYS AND URETERS: Right kidney is ptotic. It demonstrates diffuse cortical thinning/scarring. No hydronephrosis, mass, or calculus. Left kidney is normal in appearance with small cysts present. No hydronephrosis, calculus, or mass. BLADDER: Partially obscured by streak artifact from bilateral hip replacements. Moderate volume intraluminal gas, and gas seen throughout the bladder wall, consistent with emphysematous cystitis. Allowing for technical limitations, no definite fistulous tract identified. Evaluation is limited. GASTROINTESTINAL TRACT: There is abundant stool seen throughout the colon consistent with obstipation. There is inferior rectal wall thickening, edema, and enhancement extending to the arch. There is infiltration of the perirectal fat along with hemorrhoidal varices. Evaluation is partially obscured by streak artifact. Inflammatory proctitis versus mass. The appendix is suboptimally visualized but grossly no evidence of appendicitis. The duodenum appears slightly thickened with thickened enhancing mucosal folds. Cannot exclude duodenitis. Small bowel is not dilated. PERITONEUM: Anasarca with small volume ascites. No free air. RETROPERITONEUM: Diffuse anasarca with small volume fluid. ABDOMINAL WALL: Diffuse anasarca. No definite discrete hernia. LYMPH NODES: No abnormal lymphadenopathy detected. VASCULAR: Heavy atheromatous calcification and tortuosity of the aorta and iliac arteries. No aneurysm. Dilation of the SMV and portal veins, possible portal hypertension. Dilation of the IVC suggesting right heart failure. PELVIC VISCERA: Calcified fibroids within a mildly enlarged uterus. Evaluation is limited due to streak artifact from hip replacements. No definite adnexal masses. OSSEOUS STRUCTURES: Refer to the dedicated lumbar CT for lumbar spine findings. Bilateral hip arthroplasties in place. No complication evident. IMPRESSION: 1. Anasarca with small volume intraperitoneal ascites. Small right pleural effusion. 2. Emphysematous cystitis. No definite fistulous connection to bowel although evaluation is limited due to streak artifact from bilateral hip arthroplasties. 3. Inferior rectal thickening, enhancement, and edema, with small hemorrhoidal varices. Differential includes proctitis versus mass lesion. Would correlate with direct visualization/digital examination. 4. Obstipation. 5. Dilation of the portal veins, and extra and intrahepatic IVC, findings suggestive of right heart failure. Cardiomegaly. 6. Mild thickening and enhancement of the duodenum, possibly secondary to increased right heart pressures, although duodenitis is a consideration. 7. Mild atrophy and diffuse cortical thinning/scarring right kidney. 8. Numerous additional ancillary findings as discussed. Also refer to the dedicated lumbar CT performed earlier. Assessment and Plan (1) Emphysematous cystitis: Status: Acute (2) UTI (urinary tract infection): Status: Acute (3) Hematuria: Status: Acute Plan CT scan consistent with emphysematous cystitis. Lau catheter is in place. Urine culture E coli morgan sensitive. Comorbidity rectal prolapse. Abx for 14 days DC Lau on discharge. follow up outpatient - outpatient cystoscopy Discussed plan with patient's son Procedures Date of Service Date of Service: 12/07/24
[2024-12-07] MEDS: Gabapentin 100 MG CAPSULE PO (20:06)
[2024-12-07] MEDS: Aspirin Enteric Coated 81 MG TABLET.DR PO (20:06)
[2024-12-07] MEDS: Carbidopa/Levodopa CR 25/100 TABLET.ER 2 TAB PO (20:06)
[2024-12-08] MEDS: 0.9 % Sodium Chloride Flush 3 ML SYRINGE IVFLUSH ×2 (00:05→09:17)
[2024-12-08 04:00] VITALS: BP 184/86; PULSE 76; RESP 16; TEMP 36.3; O2SAT 97
[2024-12-08 04:55] VITALS: BP 168/78
[2024-12-08] MEDS: Levothyroxine Sodium 100 MCG TABLET PO (06:17)
[2024-12-08] MEDS: Carbidopa/Levodopa 25/100 TABLET 2 TAB PO ×2 (06:18→09:22)
[2024-12-08 07:30] VITALS: BP 170/68; PULSE 68; RESP 18; TEMP 36.8; O2SAT 98
[2024-12-08 07:44] LABS: MANUAL DIFF FLAG NO
[2024-12-08 08:04] LABS: Basophils Absolute Auto 0.1 X10*3/uL (0.0-0.2); Basophils Percent Auto 0.6 % (0-2); Eosinophils Absolute Auto 0.3 X10*3/uL (0.0-0.4); Eosinophils Percent Auto 3.2 % (0-4); Hematocrit 31.7 % (37.0-47.0); Hemoglobin 10.5 g/dl (12.0-16.0); Imm Gran Abs Auto 0.04 X10*3/uL (0.00-0.03); Imm Gran Pct Auto 0.5 % (0.0-0.4); Lymphocytes Absolute Auto 0.7 X10*3/uL (1.2-4.9); Lymphocytes Percent Auto 8.7 % (20-40); Mean Corpuscular HGB Conc 33.1 g/dl (31.0-35.0); Mean Corpuscular Hemoglobin 33.3 pg (27.0-33.0); Mean Corpuscular Volume 100.6 fL (80.0-98.0); Mean Platelet Volume 10.5 fL (9.4-12.3); Monocytes Absolute Auto 0.7 X10*3/uL (0.1-1.2); Monocytes Percent Auto 7.9 % (2-11); Neutrophils Absolute Auto 6.8 x10*3/uL (2.0-8.3); Neutrophils Percent Auto 79.1 % (45-73); Platelet Count 235 X10*3/uL (160-400); Red Blood Count 3.15 X10*6/uL (4.20-5.50); Red Cell Distribution Width 14.6 % (11.0-16.0); White Blood Count 8.5 X10*3/uL (4.8-10.8)
[2024-12-08 08:24] LABS: Anion Gap 14 (12-20); Blood Urea Nitrogen 16 mg/dL (9-16); Calcium 8.6 mg/dL (8.4-10.2); Carbon Dioxide 22 mmol/L (22-29); Chloride 103 mmol/L (96-108); Creatinine Clr Calc Pharmacy 47.6; Estimated Glomerular Filt Rate > 60; Glucose Random 95 mg/dL (60-115); Potassium 4.1 mmol/L (3.3-5.1); Sodium 135 mmol/L (135-145)
[2024-12-08] MEDS: Heparin Sodium,Porcine 5,000 UNIT/ML VIAL 5000 UNIT SUBCUT (09:16)
[2024-12-08] MEDS: Lactulose 20 GM/30 ML SOLUTION PO (09:16)
[2024-12-08] MEDS: medroxyPROGESTERone Acetate 5 MG TABLET 10 MG PO (09:17)
[2024-12-08] MEDS: Sodium Chloride Tab 1 GM TABLET PO (09:17)
--- NOTE | 2024-12-08 09:28 | PC.NURSE ---
BP elevated 170/[address] De La Rosa made aware
--- NOTE | 2024-12-08 10:07 | MHC.CM.PN ---
Per MD patient medically cleared for dc to [facility] [place]. BLS transport scheduled for 12:30pm. , RN aware. LM for son Manny to inform.
[2024-12-08] MEDS: cefTRIAXone sodium 1 GM VIAL IVPUSH (10:47)
--- NOTE | 2024-12-08 10:50 | PM.DS ---
DS: Providers Provider Date of Service: 12/08/24 Date of admission: 12/05/24 16:02 Date of discharge: 12/08/24 Primary care physician: KORI JIANG Consults: 12/06/24 09:32 Consult to Urology Routine Consulting Provider: [facility] Urology Services Reason for consultation: Emphysematous cystitis 12/06/24 12:07 Consult to Wound Care Routine Reason for consultation: skin tear and redness on coccyx Has provider been notified: Yes 12/07/24 12:24 Consult to Wound Care Routine Reason for consultation: two skin tears left lower leg Has provider been notified: No DS: Diagnosis Discharge Diagnosis (1) Emphysematous cystitis: Status: Acute (2) UTI (urinary tract infection): Status: Acute (3) Hematuria: Status: Acute (4) Fall: Status: Acute DS: Summary Hospital Course Hospital Course: Admission note HPI An 84 years old lady with PMH of Parkinson, Lumber stenosis, rectal prolapse, HLD, HTN, Falls among others who presents to the hospital after a fall at living facility. The patient was in bathroom when her walker get caught and she felt backward hitting her right shoulder and head. denies any LOC, altered mentation, abnormal movements. She reports right shoulder pain. Denies any dizziness or lightheadedness. No chest pain, palpitations, SOB, nausea, vomiting, diarrhea or urinary symptoms. She has chronic diarrhea\constipation problems related to chronic non-operaple rectal prolapse that is managed symptomatically. In ED found to have bladder wall air and air within the bladder. UA negative for infection. discussed with Urology who recommended monitoring inpatient with Lau and IV Abx will be admitted for further work up and management. Hospital course The patient was evaluated for: # UTI with Emphysematous cystitis reported in CT scan, likely related to the infection with E.Coli. placed Lau and treated with Ceftriaxone and Flagyl as cultures growing E.Coli was narrowed to Ceftriaxone only. Evaluated by Urology team who recommended outpatient follow up for cystoscopy and to finish 2 weeks of antibiotics. Lau removed prior to discharge can use Straight cath for any retention. # Fall, Mechanical in nature and related to physical deconditioning. PT eval recommended SNF placement. # Underweight , Added Ensure and advised for increase protein intake # Anasarca , reported on CT scan but clinically she is not fluid overloaded, increase protein intake # Hx rectal prolapse , conservative measures , CT reporting Inferior rectal thickening, enhancement, and edema, with small hemorrhoidal varices.had laxative and was able to pass nowel movement # Right sided heart failure, CT reporting Dilation of the portal veins, and extra and intrahepatic IVC. clinically not in fluid overload. Discharge plan Continue Ceftin for 10 more days To follow up with Urology as outpatient in 2 weeks for cystoscopy Increase protein intake PHysical therapy as tolerated Can use straight cath if any urine retention Time Attestation Discharge Coordination Time (in mins): 42 Quality: Safe Use of Opioids Does Pt have an Active Cancer Diagnosis on the Problem List?: No Quality: Stroke Does the patient have a stroke diagnosis?: No Physical Exam Vital Signs: Vital Signs: Last Vital Signs Temp 98.3 F 12/08/24 07:30 Pulse 68 12/08/24 07:30 Resp 18 12/08/24 07:30 BP 170/68 H 12/08/24 07:30 Pulse Ox 98 12/08/24 07:30 O2 Del Method Room Air 12/08/24 07:30 BMI result Body Mass Index 21.5 Const: Other: Constitutional : interactive, not in distress Cardiovascular : no JVP, no lower extremity edema Respiratory : bilateral chest movement, not in resp distress Gastrointestinal: soft, lax, Non tender Skin : Warm, Dry Neurological : Alert & oriented to self and place but easily confused , No focal deficit DS: Data Data Completed and Pending Labs on day of discharge: Laboratory Results - last 24 hr 12/08/24 06:36 WBC 8.5 RBC 3.15 L Hgb 10.5 L Hct 31.7 L MCV 100.6 H MCH 33.3 H MCHC 33.1 RDW 14.6 Plt Count 235 MPV 10.5 Immature Gran % (Auto) 0.5 H Neut % (Auto) 79.1 H Lymph % (Auto) 8.7 L Andrews % (Auto) 7.9 Eos % (Auto) 3.2 Baso % (Auto) 0.6 Lymph # (Auto) 0.7 L Andrews # (Auto) 0.7 Eos # (Auto) 0.3 Baso # (Auto) 0.1 Abs Immat Gran (auto) 0.04 H Absolute Neuts (auto) 6.8 Absolute Nucleated RBC 0.000 Nucleated RBC % (auto) 0.0 Sodium 135 Potassium 4.1 Chloride 103 Carbon Dioxide 22 Anion Gap 14 BUN 16 Creatinine 0.62 Estim Creat Clear Calc 47.6 Estimated GFR > 60 Random Glucose 95 Calcium 8.6 Preliminary micro results at discharge 12/05/24 13:18 Blood Culture - Preliminary Blood - Venous No growth after 48 hours. 12/05/24 13:18 Blood Culture - Preliminary Blood - Venous No growth after [address] scan - abdomen: Radiologist's impression: ITS Impressions Head CT 12/05/24 11:16 IMPRESSION: 1. No acute intracranial abnormalities. No fractures. 2. Chronic findings as discussed.. Electronically signed by: Sudarshan Solo MD 12/05/2024 12:11 PM EST RP Cervical Spine CT 12/05/24 11:21 IMPRESSION: 1. No CT evidence of acute cervical spine fracture or injury. Diffuse spondylosis. 2. Laminectomies and posterior fusion C3-C5. No hardware abnormality or loosening. 3. Suspect moderate central canal stenosis at C5-6. Evaluation inherently limited due to modality. 4. See above for details. Electronically signed by: Sudarshan Solo MD 12/05/2024 12:18 PM EST RP Lumbar Spine CT 12/05/24 11:28 IMPRESSION: 1. Age-indeterminate fracture through a large right anterolaterally projecting disc osteophyte superior endplate L3. No displacement. 2. Otherwise, no additional acute fracture or traumatic malalignment evident. 3. There has been fusion of L4-S1 facets. 4. Advanced, severe, multilevel spondylosis with multilevel severe canal stenosis. 5. Emphysema seen throughout the urinary bladder wall, suboptimally imaged, but suspicious for emphysematous cystitis. 6. Obstipation. Anasarca. Small right pleural effusion. -Findings were discussed with Paula Fuentes of the [facility] at 12:35 PM, 12/05/2024. Electronically signed by: Sudarshan Solo MD 12/05/2024 12:43 PM EST RP Shoulder X-Ray 12/05/24 13:00 IMPRESSION: Moderate degenerative changes. Probable rotator cuff calcifications. Electronically signed by: Dawson Bansal MD 12/05/2024 01:13 PM EST RP Abdomen/Pelvis CT 12/05/24 13:07 IMPRESSION: 1. Anasarca with small volume intraperitoneal ascites. Small right pleural effusion. 2. Emphysematous cystitis. No definite fistulous connection to bowel although evaluation is limited due to streak artifact from bilateral hip arthroplasties. 3. Inferior rectal thickening, enhancement, and edema, with small hemorrhoidal varices. Differential includes proctitis versus mass lesion. Would correlate with direct visualization/digital examination. 4. Obstipation. 5. Dilation of the portal veins, and extra and intrahepatic IVC, findings suggestive of right heart failure. Cardiomegaly. 6. Mild thickening and enhancement of the duodenum, possibly secondary to increased right heart pressures, although duodenitis is a consideration. 7. Mild atrophy and diffuse cortical thinning/scarring right kidney. 8. Numerous additional ancillary findings as discussed. Also refer to the dedicated lumbar CT performed earlier. Electronically signed by: Sudarshan Solo MD 12/05/2024 02:19 PM EST RP Head CT 12/05/24 13:20 IMPRESSION: No acute fracture, bony calvarium. No acute intracranial hemorrhage. Small vessel occlusive disease. Superimposed acute stroke/nonhemorrhagic ischemia cannot be excluded. Electronically signed by: Bret Cornejo MD 12/05/2024 02:02 PM EST RP Discharge Plan Discharge Anticipated Discharge Date/Time: 12/08/24 10:39 Patient Disposition: Xfer SNF Discharge Diagnosis: UTI, emphysematous cystitis Referrals: No[facility] [Outside] - 1 Day (short term rehab) KORI JIANG [Primary Care Provider] - 1 Week Discharge Medications: New cefuroxime axetil 500 mg tablet 500 mg PO BID Qty: 20 0RF Continued carbidopa-levodopa 25-100 mg tablet 2 tab PO QID Rx Instructions: @0500,0900,1300,1700 psyllium husk 0.52 gram Capsule 2.08 g PO BID sodium chloride 1,000 mg Tablet,Soluble 1,000 mg PO DAILY carbidopa-levodopa 25-100 mg tablet extended release 2 tab PO BEDTIME medroxyprogesterone 10 mg tablet 10 mg PO DAILY levothyroxine 100 mcg tablet 100 mcg PO DAILY@0600 gabapentin 100 mg capsule 100 mg PO BEDTIME aspirin [Adult Low Dose Aspirin] 81 mg tablet,delayed release (DR/EC) 81 mg PO DAILY@2100 Discharge Orders: Discharge Order (Routine); Ordered 12/08/24 Ordered By: Sarah De La Rosa Diet: Advance to usual diet Activity on Discharge: As tolerated Stand Alone Forms: Patient Portal Discharge page Print Language: [place] Care Plan Goals: Continue Ceftin for 10 more days To follow up with Urology as outpatient in 2 weeks for cystoscopy Increase protein intake PHysical therapy as tolerated Can use straight cath if any urine retention Health Concerns: UTI Air in bladder weight loss Plan of Treatment: Antibiotics Urology follow up Increase protein intake Assessment: as above
[2024-12-08 11:16] VITALS: BP 151/74; PULSE 86; RESP 16; TEMP 36.6; O2SAT 98
== END 2024-12-08 13:00 | disposition skilled nursing facility (03) | DRG 690 ==
LOC: HO.ED 14:51 → HO.EDOVER 16:07 → HO.S3 12-06 08:50
PROVIDERS: Physician Assistant; Admitting Provider Student in an Organized Health Care Education/Training Program; Emergency Provider Emergency Medicine; PCP Emergency Medicine; Visit Provider Student in an Organized Health Care Education/Training Program
DX: N30.80 Other cystitis without hematuria (principal); Z68.1 Body mass index [BMI] 19.9 or less, adult; R63.6 Underweight; G20.A1 Parkinson's disease without dyskinesia, without mention of fluctuations; I50.812 Chronic right heart failure; B96.20 Unspecified Escherichia coli [E. coli] as the cause of diseases classified elsewhere; E03.9 Hypothyroidism, unspecified; K62.3 Rectal prolapse; Z20.822 Contact with and (suspected) exposure to COVID-19; Z79.82 Long term (current) use of aspirin; Z79.890 Hormone replacement therapy; Z79.899 Other long term (current) drug therapy
CPT/HCPCS: 0241U; 36415; 70450; 72125; 72131; 73030; 74177; 80048; 80076; 81001; 83605; 83735; 84443; 85025; 85027; 85610; 87040; 87086; 87088; 87186; 93005; 97162; 99285; C1758; J0360; J0696; J1644; J1836; Q9967

== ENCOUNTER → 2024-12-05 11:16 | Outpatient (BNV) | payer MEDICARE, SELFPAY | PROVIDERS: Emergency Provider Emergency Medicine; Visit Provider Radiology Diagnostic Radiology | DX: R19.04 Left lower quadrant abdominal swelling, mass and lump (principal); M54.2 Cervicalgia; M54.50 Low back pain, unspecified; R51.9 Headache, unspecified; M25.511 Pain in right shoulder | CPT/HCPCS: 70450; 72125; 72131; 74177 ==

== ENCOUNTER → 2024-12-05 11:21 | Outpatient (BNV) | DX: I49.1 Atrial premature depolarization (principal); R94.31 Abnormal electrocardiogram [ECG] [EKG]; R53.1 Weakness | CPT/HCPCS: 93010 ==

== ENCOUNTER → 2024-12-05 11:50 | Outpatient (BNV) | payer MEDICARE, SELFPAY | PROVIDERS: Emergency Provider Emergency Medicine; Visit Provider Student in an Organized Health Care Education/Training Program | DX: N39.0 Urinary tract infection, site not specified (principal); N30.80 Other cystitis without hematuria; W19.XXXA Unspecified fall, initial encounter | CPT/HCPCS: 99222; 99232 ==

== ENCOUNTER 2024-12-29 12:04 | Emergency (ER) | payer MEDICARE, SELFPAY ==
--- NOTE | ~2024-12-29 | CT_ITS ---
CLINICAL HISTORY: fall abd pain CT abdomen and pelvis with contrast Comparison: CT/CT/SR - CT ABDOMEN PELVIS W IV CON - 12/05/24 13:23 EST Findings: Small right pleural effusion, also present on the prior study. Atelectasis versus scarring at the left lung base with mild elevation of the left hemidiaphragm, unchanged. Unremarkable gallbladder. Wall thickening of the bladder. Right renal scarring with subcentimeter low attenuating lesions which are too small to characterize. Left renal cyst. Bilateral renal subcentimeter low attenuating lesions which are too small to characterize. Hepatic steatosis. The other solid organs are unremarkable. No bowel dilation. No definitive bowel wall thickening. The appendix is not visualized. No secondary signs of acute appendicitis. No aneurysm. Severe calcified atherosclerotic disease. No lymphadenopathy. Small ascites unchanged. Nondisplaced fracture of the right 5th rib the anterior aspect with evidence of healing, also present on the prior study. Unchanged contour abnormality of the right transverse process L1 and L2. Lucency left lateral osteophytes involving T12 through L2, also present on the prior study. Intact bilateral total hip arthroplasties. Infiltration of the subcutaneous fat likely indicating anasarca, also present on the prior study Impression: No acute posttraumatic findings. Subacute to chronic fractures which were also present on the prior study, detailed above. Small right pleural effusion and small ascites, also present on the prior study. Wall thickening of the bladder may indicate cystitis. Correlate with urinalysis. This document has been electronically signed by: Leia Patel MD on 12/29/2024 15:33:41
--- NOTE | ~2024-12-29 | CT_ITS ---
CLINICAL HISTORY: neck pain fall CT cervical spine without contrast Comparison: CT/WA/SR - CT CERVICAL SPINE WO IV CON - 12/05/24 11:21 EST Findings: Mild multilevel anterolisthesis and retrolisthesis, degenerative. Status post posterior decompression with fusion C3 through C5. Intact hardware There is lucency at the anterior inferior aspect of C5 at the base of the large osteophyte, also present on the prior study (see series 26 images 18 through 31). Multilevel degenerative change is most prominent at C5/C6 and C6/C7 with moderate to severe central spinal canal stenosis. No epidural hematoma. Normal thickness of the prevertebral soft tissues. Mild biapical scarring with nodularity. Impression: No acute findings. Lucency at the anterior inferior aspect of C5 at the base of a large osteophyte which was also present on the prior study, chronic. This document has been electronically signed by: Leia Patel MD on 12/29/2024 15:24:57
--- NOTE | ~2024-12-29 | CT_ITS ---
CLINICAL HISTORY: fall chest trauma CT chest with contrast Comparison: CT/DC/SR - CT ABDOMEN PELVIS W IV CON - 12/05/24 13:20 EST Findings: No mediastinal mass or lymphadenopathy. No cardiomegaly. Moderate to severe calcified coronary artery disease. Severe calcification of the mitral annulus. Normal size thoracic aorta with a moderate amount of calcified atherosclerotic disease. Mild biapical scarring with nodularity. Subsegmental atelectasis versus linear scarring at the left lung base with mild elevation of the left hemidiaphragm. No pneumothorax. Small right pleural effusion. Nondisplaced fracture of the right 5th rib at the anterior aspect with evidence of healing, also present on the prior study. Lucency at the left lateral base of osteophytes T12 and L1, larger at T12 (series 33 images 118 through 124 and 132 and series 30 images 41 through 51). Contour abnormality of the right transverse process of L1, unchanged/age indeterminate. Infiltration of the subcutaneous fat likely indicates anasarca. Ascites in the upper abdomen. Impression: No acute posttraumatic findings. Healing nondisplaced fracture of the right 5th rib at the anterior aspect. Lucency at the left lateral base of osteophytes T12 and L1, also present on the prior study. Small right pleural effusion. This document has been electronically signed by: Leia Patel MD on 12/29/2024 15:42:15
--- NOTE | ~2024-12-29 | CT_ITS ---
CLINICAL HISTORY: fal + loc CT head without contrast Comparison: CT/SR - CT HEAD/BRAIN WO IV CON - 12/05/24 13:[address]/[place]/SR - CT HEAD/BRAIN WO IV CON - 12/05/24 11:21 EST Findings: No acute hemorrhage. No extra-axial fluid collection. No hydrocephalus, mass-effect or herniation. Morrison-white differentiation is maintained. There is patchy hypoattenuation of the periventricular and deep white matter, which is most likely the sequela of moderate chronic small vessel ischemic disease and is similar to the prior study. No acute orbital pathology. Left posterior parietal scalp hematoma with associated laceration. No fracture. The visualized paranasal sinuses are predominantly clear. The mastoid air cells are clear. Impression: No acute intracranial findings. This document has been electronically signed by: Leia Patel MD on 12/29/2024 15:25:27
[2024-12-29 12:09] VITALS: BP 136/75; PULSE 80; O2SAT 98
[2024-12-29 12:12] VITALS: BP 145/79; PULSE 95; RESP 18; TEMP 36.4; O2SAT 96; BMI 19.8
--- NOTE | 2024-12-29 12:13 | ECG_ITS ---
Test Reason : FALL Blood Pressure : */* mmHG Vent. Rate : 95 BPM Atrial Rate : 89 BPM P-R Int : 168 ms QRS Dur : 84 ms QT Int : 358 ms P-R-T Axes : 63 19 22 degrees QTcB Int : 449 ms Sinus rhythm with Premature supraventricular complexes Minimal voltage criteria for LVH, may be normal variant ( Bushnell product ) Septal infarct (cited on or before 05-Dec-2024) Abnormal ECG When compared with ECG of 05-Dec-2024 12:26, No significant change was found Referred By: Osiel Trivedi Electronically Signed By: RANDELL FRAIRE MD
[2024-12-29 12:35] LABS: MANUAL DIFF FLAG NO
[2024-12-29 12:37] LABS: Basophils Percent Auto 0.4 % (0-2); Eosinophils Percent Auto 0.3 % (0-4); Hematocrit 36.5 % (37.0-47.0); Hemoglobin 12.1 g/dl (12.0-16.0); Imm Gran Abs Auto 0.04 X10*3/uL (0.00-0.03); Imm Gran Pct Auto 0.6 % (0.0-0.4); Lymphocytes Absolute Auto 0.6 X10*3/uL (1.2-4.9); Lymphocytes Percent Auto 8.7 % (20-40); Mean Corpuscular HGB Conc 33.2 g/dl (31.0-35.0); Mean Corpuscular Hemoglobin 31.9 pg (27.0-33.0); Mean Corpuscular Volume 96.3 fL (80.0-98.0); Mean Platelet Volume 9.5 fL (9.4-12.3); Monocytes Absolute Auto 0.5 X10*3/uL (0.1-1.2); Monocytes Percent Auto 6.8 % (2-11); Neutrophils Absolute Auto 5.8 x10*3/uL (2.0-8.3); Neutrophils Percent Auto 83.2 % (45-73); Platelet Count 307 X10*3/uL (160-400); Red Blood Count 3.79 X10*6/uL (4.20-5.50); Red Cell Distribution Width 12.8 % (11.0-16.0); White Blood Count 6.9 X10*3/uL (4.8-10.8)
--- NOTE | 2024-12-29 12:37 | ED_ITS ---
HPI - General Adult General Chief complaint: Fall Stated complaint: UNWITNESSED FALL + COLLAR Time Seen by Provider: 12/29/24 12:13 Source: patient, family and EMS Mode of arrival: EMS Limitations: no limitations History of Present Illness ED Provider: DANUTA Trivedi HPI narrative: 84 year old female hx of parkinsons, htn, chronic dizziness, rectal prolapse presents w/ fall prior to arrival with head strike but no LOC. Patient reports I got up to quick and fell to the ground. She was unable to get up on her own. One of the residents at her assisted living facilities heard her fall and called for assistance. No CP, palpitations prior to fall. She has a laceration to her head. She is on daily asa but no other thinners. She denies pain to extremities, hips, cp, sob, nausea, vomiting, abd pain, vision changes, weakness NIHSS-0 GCSC-15 Related Data Home Medications ?Medication ?Instructions ?Recorded ?Confirmed aspirin 81 mg tablet,delayed 81 mg PO DAILY@2100 07/17/24 12/05/24 release (Adult Low Dose Aspirin) carbidopa ER 25 mg-levodopa 100 mg 2 tab PO BEDTIME 07/17/24 12/05/24 tablet,extended release gabapentin 100 mg capsule 100 mg PO BEDTIME 07/17/24 12/05/24 levothyroxine 100 mcg tablet 100 mcg PO DAILY@0600 07/17/24 12/05/24 medroxyprogesterone 10 mg tablet 10 mg PO DAILY 07/17/24 12/05/24 carbidopa 25 mg-levodopa 100 mg 2 tab PO QID 12/05/24 12/05/24 tablet psyllium husk 0.52 gram capsule 2.08 g PO BID 12/05/24 12/05/24 sodium chloride 1,000 mg soluble 1,000 mg PO DAILY 12/05/24 12/05/24 tablet Previous Rx's ?Medication ?Instructions ?Recorded cefuroxime axetil 500 mg tablet 500 mg PO BID #20 tabs 12/08/24 cefuroxime axetil 250 mg tablet 250 mg PO BID 7 days #14 tabs 12/29/24 Allergies Allergy/AdvReac Type Severity Reaction Status Date / Time ciprofloxacin [From Cipro] Allergy Severe unknown Verified 12/29/24 12:21 Sulfa (Sulfonamide Allergy Severe unknown Verified 12/29/24 12:21 Antibiotics) Review of Systems 2 Review of Systems: Yes all other systems are reviewed and are negative [facility] Past Medical History Attestation statement: The following information was validated with the patient. Source: old records reviewed and nursing notes reviewed Medical History Fall Rectal prolapse Parkinsons disease Surgical History No pertinent past surgical history Social History Social History Household Members: None Housing: Apartment Do you presently have visiting nurse or other home services: Yes Alcohol intake: never Patient Tobacco Use Status: Never used Tobacco Smoked in Last 30 Days: No Use of substances other than those prescribed or required for medical reasons: No Advance Directives: Yes Advance Directives on File: Yes Advance Directives Date on File: 12/11/21 Do you have a plan to hurt others: No Plan service: No Physical Exam ED Vital Signs: Vital Signs - 24 hr 12/29/24 12:12 12/29/24 14:24 12/29/24 15:56 Temperature 97.6 F 97.6 F 97.6 F Pulse Rate 95 90 90 Respiratory Rate 18 20 20 Blood Pressure 145/79 H 178/91 H 178/91 H Pulse Oximetry 96 97 97 Oxygen Delivery Method Room Air Room Air BMI result Body Mass Index 19.8 vss Appearance: Alert.? Oriented X3.? No acute distress.? Head: Normocephalic, atraumatic, no step-offs or deformities Eyes: Pupils equal, round and reactive to light.? Neck: Normal inspection.? Neck supple.?+ in cervical collar CVS: Normal heart rate and rhythm.? Pulses normal.? Respiratory: No respiratory distress.? Breath sounds normal.? Abdomen: Soft and nontender.? Skin: Skin warm and dry.? Normal skin color.? Normal skin turgor.? Extremities: No lower extremity edema.? No calf ttp. 5/5 strength to bilateral upper and lower extremities Back: No midline tenderness, no C-spine tenderness, full range of motion, no CVA tenderness bilaterally Neuro: Oriented X 3.? No motor deficit.? No sensory deficit. CN 2-12 intact Course Reevaluation(s) Reevaluation #1: CBC unremarkable. Chemistry with no acute findings needing intervention. Troponin negative nonischemic EKG, 2nd troponin will be obtained at a later time. Time: 13:00 Reevaluation #2: UA with positive leukocyte esterases greater than 50 urine WBCs, bacteria 4+. Concerning for UTI. Patient recently had a UTI and was treated with ceftriaxone. She was then sent to a halfway facility where she was straight cath multiple times, possible reinfection. She was morgan sensitive and grew E coli. Will tailor my antibiotic choice to this. Head lack he has a linear laceration around 3 cm, the center of the laceration appears to be deeper than the edges, 2 gail placed to the head. Pacer has been interogated Time: 15:55 Reevaluation #3: CT head and cervical spine with no acute findings. There is a lucency at the inferior aspect of C5 at the base of the large osteophyte which was also present on previous steady patient and patient's family members aware of this finding. CT chest no acute posttraumatic findings. Healing nondisplaced fracture of the right 5th rib at the anterior aspect. Lucency at the left lateral base of osteophytes T12 and L1 also present on prior study. Small right pleural effusion. No acute posttraumatic findings. Subacute to chronic fractures which were also present on prior study detailed above. Small right pleural effusion small ascites. Bladder wall thickening could indicate cystitis will be treating her for UTI. These findings will be shared with patient and family member. Patient's son things patient has had the tetanus shot within the last 5-10 years. Offered a new tetanus shot however patient refusing as she had a bad reaction to it in the past. At this time patient to be discharged home. Educated patient on diagnosis and treatment plan, answered all question, patient verbalizes understanding. At this time patient will be discharged home, advised to return with new or worsening symptoms. Educated on worrisome signs and symptoms and when to return. At this time I feel comfortable discharge home. Time: 16:00 Additional Reevaluation(s): Second troponin also negative. Medications Administered Discontinued Medications Generic Name Dose Route Start Last Admin Trade Name Freq PRN Reason Stop Dose Admin Diphtheria/Tetanus/Acell Pertussis 0.5 ml 12/29/24 15:18 12/29/24 16:23 Diphth,Pertus(Acell),Tet Adult 0.5 Ml Syringe IM 12/29/24 15:19 Not Given .ONCE ONE Medical Decision Making Medical Decision Making [facility] Narrative: 1243 84-year-old female presents status post unwitnessed fall positive head strike no loss of consciousness. Not reporting any symptoms at this time. She reports chronic dizziness. Physical exam with 4 cm laceration to the occiput. Neurological function intact. Normal range of motion to upper and lower extremities. Regular rate and rhythm. Lungs clear. History and physical exam concerning for orthostatic hypotension with fall versus mechanical fall versus fall due to dizziness from Parkinson's. Unlikely stroke, posterior stroke, intracranial hemorrhage, fracture, dislocation of upper or lower extremities. Will rule out traumatic injury to head, neck, chest, abdomen and pelvis although unlikely. Will also rule out UTI. Family does mentioned that patient was recently treated for urinary tract infection she completed antibiotics however despite this she is reporting lower abdominal discomfort, flank pain and hematuria intermittently. Patient does not appear systemically ill low suspicion for pyelo or systemic illness. Plan labs, imaging, urine Differential Diagnosis Differential Diagnoses: The differential diagnosis associated with the presentation includes (History and physical exam concerning for orthostatic hypotension with fall versus mechanical fall versus fall due to dizziness from Parkinson's. Unlikely stroke, posterior stroke, intracranial hemorrhage, fracture, dislocation of upper or lower extremities. Will rule out traumatic injury to head, ) Admission/Observation Consideration of admission/observation: Escalation of care including admission/observation considered Lab Data 12/29/24 12:32 12/29/24 12:32 Labs: Lab Results 12/29/24 12/29/24 12/29/24 Range/Units 12:32 14:31 15:53 WBC 6.9 (4.8-10.8) X10*3/uL RBC 3.79 L D (4.20-5.50) X10*6/uL Hgb 12.1 (12.0-16.0) g/dl Hct 36.5 L (37.0-47.0) % MCV 96.3 (80.0-98.0) fL MCH 31.9 (27.0-33.0) pg MCHC 33.2 (31.0-35.0) g/dl RDW 12.8 (11.0-16.0) % Plt Count 307 D (160-400) X10*3/uL MPV 9.5 (9.4-12.3) fL Immature Gran % (Auto) 0.6 H (0.0-0.4) % Neut % (Auto) 83.2 H (45-73) % Lymph % (Auto) 8.7 L (20-40) % [place] % (Auto) 6.8 (2-11) % Eos % (Auto) 0.3 (0-4) % Baso % (Auto) 0.4 (0-2) % Lymph # (Auto) 0.6 L (1.2-4.9) X10*3/uL [place] # (Auto) 0.5 (0.1-1.2) X10*3/uL Eos # (Auto) 0.0 (0.0-0.4) X10*3/uL Baso # (Auto) 0.0 (0.0-0.2) X10*3/uL Abs Immat Gran (auto) 0.04 H (0.00-0.03) X10*3/uL Absolute Neuts (auto) 5.8 (2.0-8.3) x10*3/uL Absolute Nucleated RBC 0.000 (0.0-0.012) X10*3/uL Nucleated RBC % (auto) 0.0 (0.0-0.2) /100WBC Sodium 134 L (135-145) mmol/L Potassium 3.5 (3.3-5.1) mmol/L Chloride 98 (96-108) mmol/L Carbon Dioxide 25 (22-29) mmol/L Anion Gap 15 (12-20) BUN 15 (9-16) mg/dL Creatinine 0.75 (0.5-1.4) mg/dL Estim Creat Clear Calc 39.4 Estimated GFR > 60 Random Glucose 114 (60-115) mg/dL Calcium 8.6 (8.4-10.2) mg/dL Magnesium 1.8 (1.6-2.6) mg/dL Total Bilirubin 0.5 (0.0-1.0) mg/dL AST 23 (5-31) U/L ALT < 6 (0-31) U/L Alkaline Phosphatase 75 (39-117) U/L Troponin I High Sens 11.9 10.1 (<3.5-17.0) ng/L Total Protein 6.7 (6.5-8.0) g/dL Albumin 3.4 L (3.5-5.0) g/dL Urine Color Yellow Urine Appearance Cloudy Urine pH 8.0 (5.0-9.0) Ur Specific [place] 1.015 (1.005-1.025) Urine Protein Negative (Neg-Trace) mg/dL Urine Glucose (UA) Negative (Negative) mg/dL Urine Ketones Negative (Negative) mg/dL Urine Blood Negative (Negative) Urine Nitrite Negative (Negative) Ur Leukocyte Esterase Moderate (2+) H (Negative) Urine RBC 0-2 (0-2) /HPF Urine WBC >50 H (0-5) /HPF Ur Squamous Epith Cells 0-2 (0-2) /HPF Urine Bacteria 4+ (None Seen) Hyaline Casts 0-2 (0-2) /LPF Critical Care Time Critical Care Time Critical Care Time: Yes Total Critical Care Time: 35 Attestation: I attest to this time spent taking care of the patient, obtaining history, physical, reviewing labs, imaging, speaking to my attending, speaking to specialist. Discharge Plan Discharge Clinical Impression: Concussion without loss of consciousness, Laceration of head, UTI (urinary tract infection), Fall Patient Disposition: Home, Self-Care Instructions: Laceration (ED), Urinary Tract Infection in Women (ED), Concussion (ED) Additional Instructions: Take your medications as prescribed. If you were prescribed antibiotics today, it is important that you take your medication to their entirety, do not skip any doses, do not finish them early. Follow-up with your primary care provider this week. Return to the emergency department with new or worsening symptoms. Such as fevers, chills, chest pain, shortness of breath, nausea, vomiting, dizziness, headache, vision changes, lethargy In case of emergency call 911 Two gail were placed to the scalp, these can be taken out in 7-10 days Impression: CT Cervical Spine No acute findings. Lucency at the anterior inferior aspect of C5 at the base of a large osteophyte which was also present on the prior study, chronic. Impression: CT Head No acute intracranial findings. Impression: CT Abdomen & Pelvis No acute posttraumatic findings. Subacute to chronic fractures which were also present on the prior study, detailed above. Small right pleural effusion and small ascites, also present on the prior study. Wall thickening of the bladder may indicate cystitis. Correlate with urinalysis. Impression:CT Chest No mediastinal mass or lymphadenopathy. No cardiomegaly. Moderate to severe calcified coronary artery disease. Severe calcification of the mitral annulus. Normal size thoracic aorta with a moderate amount of calcified atherosclerotic disease. Mild biapical scarring with nodularity. Subsegmental atelectasis versus linear scarring at the left lung base with mild elevation of the left hemidiaphragm. No pneumothorax. Small right pleural effusion. Nondisplaced fracture of the right 5th rib at the anterior aspect with evidence of healing, also present on the prior study. Lucency at the left lateral base of osteophytes T12 and L1, larger at T12 (series 33 images 118 through 124 and 132 and series 30 images 41 through 51). Contour abnormality of the right transverse process of L1, unchanged/age indeterminate. Infiltration of the subcutaneous fat likely indicates anasarca. Ascites in the upper abdomen. No acute posttraumatic findings. Healing nondisplaced fracture of the right 5th rib at the anterior aspect. Lucency at the left lateral base of osteophytes T12 and L1, also present on the prior study. Small right pleural effusion. Prescriptions: New cefuroxime axetil 250 mg tablet 250 mg PO BID 7 Days Qty: 14 0RF No Action carbidopa-levodopa 25-100 mg tablet 2 tab PO QID Rx Instructions: @0500,0900,1300,1700 psyllium husk 0.52 gram Capsule 2.08 g PO BID sodium chloride 1,000 mg Tablet,Soluble 1,000 mg PO DAILY cefuroxime axetil 500 mg tablet 500 mg PO BID Qty: 20 0RF carbidopa-levodopa 25-100 mg tablet extended release 2 tab PO BEDTIME medroxyprogesterone 10 mg tablet 10 mg PO DAILY levothyroxine 100 mcg tablet 100 mcg PO DAILY@0600 gabapentin 100 mg capsule 100 mg PO BEDTIME aspirin [Adult Low Dose Aspirin] 81 mg tablet,delayed release (DR/EC) 81 mg PO DAILY@2100 Referrals: Ronaldo Pryor MD [Emergency Provider] - 2 days Stand Alone Forms: Work/School Release Print Language: Azeri
--- OUTSIDE RECORDS SUMMARY | 2024-12-29 12:48 | XMS_ITS | Continuity of Care Document ---
Author Organization [facility], [facility] Address [address] [place] [address] Care Team Providers Care Satellite Installation Technician Name Role Phone WILLOW GRACE AT [facility] OTHER AYANNA MOSLEY Primary Care Provider Assessment No assessment recorded. Plan of Treatment Reminders Order Date Submit Date Provider Last Modified By Organization Details Last Modified Time Details Appointments None record ed. Lab None record ed. Referral None record ed. Procedures None record ed. Surgeries None record ed. Imaging None record ed. Medication Orders None record ed. Patient TargetsNo targets recorded. Patient InstructionsNo instructions recorded. Reason for Referral None Reported. Problems Name Problem SNOMED Code Status Onset Date Resolution Date Notes Provider Name and Address Organization Details Recorded Time Recurrent falls 308764165 Active 2024 REAL WALL NP [address] , [address], [place], [address], [facility] 5 14:22:39 Urinary tract infectious disease 12803736 Active 2024 REAL WALL NP [address], [address], [place], [address], [facility] 5 14:22:44 Emphysemat ous cystitis 65405840 Active 2024 REAL WALL NP [address], [address], [place], [address], [facility] 5 14:23:10 Parkinson' s disease 36077429 Active 2024 REAL WALL NP [address], [place], [address], [facility] [employer] [facility] 5 14:23:19 Rectal prolapse 27086923 Active 2024 REAL WALL NP [address], [address], [place], [address], [facility] 5 14:23:28 Spinal stenosis of lumbar region 95379032 Active 2024 s/p surgery REAL WALL NP [address], [address], [place], [address], [facility] 5 14:23:41 Hyperlipid emia 61239769 Active 2024 REAL WALL NP [address], [address], [place], [address], [facility] 5 14:23:47 Hypertensi ve disorder 91007890 Active 2024 REAL WALL NP [address], [address], [place], [address], [facility] 5 14:23:51 Hypothyroi dism 30957822 Active 2024 REAL WALL NP [address], [place], [address], [facility] 5 14:24:02 Depressive disorder 43248960 Active 2024 REAL WALL NP [address], [place], [address], [facility] 5 14:24:10 Peripheral neuropathi c pain 641706867 Active 2024 REAL WALL NP [address] [facility], [address], [place], [address], [facility] 5 14:24:25 Abnormal uterine bleeding 154527959798 00 Active 2024 REAL WALL NP [address], [address], [place], [address], [facility] 5 14:24:41 Hyponatrem ia 31962291 Active 2024 REAL WALL NP [address], [place], [address], [facility] 5 14:42:44 Chronic right-side d heart failure 72643535 Active 2024 REAL WALL NP [address] [facility], [address], [place], [address], [facility] [employer] 5 14:44:20 Coronary arterioscl erosis 17027579 Active 2024 REAL WALL NP [address] [facility], [address], [place], [address], [facility] [employer] 14:53:25 Problem Notes None recorded. Medical Equipment None Reported. Allergies Allergen ID Allergen Name Allergen Category Reaction Reaction Severity Criticality Documentation Date Start Date Code Code System Note Provider Name and Address Organization Details Recorded Time 92018 Cipro medicatio n Not available Not available Not available 12/10/2024 95888 3 RxNorm Not Available Not Available Not Available 46998 Substance with sulfonami de structure and antibacte rial mechanism of action (substanc e) medicatio n Not available Not available Not available 12/10/2024 77262 8003 SNOMED Not Available Not Available Not Available Medications Not known to be on any medication Vitals Date Recorded Heart rate Respiratory rate Body temperature Oxygen saturation Oxygen saturation in Arterial blood by Pulse oximetry Systolic blood pressure Diastolic blood pressure Provider Name and Address Organization Details Last Updated DateTime 5 80 /min 18 /min 97.8 [degF] 97 % 97 % 117 mm[Hg] 52 mm[Hg] REAL WLAL NP [address] [facility], [address], [place], [address], [employer] 14:33:05 Social History Question Answer Notes LastModified by Organizat ion Details LastModified Time Tobacco Smoking Status Never Smoker REAL WALL NP [address] [facility], [address], [place], [address], [facility] [employer] [facility] 12/10/2024 14:00:55 What Is Your Level Of Alcohol Consumption? None [email or web address] Information not available 12/10/2024 What Is Your Code Status? DNR/DNI DNR, DNI, DNH, No Dialysis, No G Tube [email or web address] Information not available 12/10/2024 Where Do You Live? Apartment [place]F [email or web address] Information not available 12/10/2024 Do You Have A Medical Power Of Fagot Heater Helper? Yes Has HCP [email or web address] Information not available 12/10/2024 What Was The Date Of Your Most Recent Tobacco Screening? 12/10/2024 [email or web address] Information not available 12/10/2024 Do You Have An Out Of Hospital DNR? Yes [email or web address] Information not available 12/10/2024 Do You Use Any Illicit Or Recreational Drugs? No Information not available 12/10/2024 Has Tobacco Cessation Counseling Been Provided? No Information not available 12/10/2024 Do You Or Have You Ever Used Any Other Forms Of Tobacco Or Nicotine? No [email or web address] Information not available 12/10/2024 Sex: Unknown Functional Status None recorded. Mental Status None recorded. Family History Relationship Description Onset Age of this Age Resolved Age Notes LastModified by Organization Details LastModified Time Father Dementia [email or web address] Not availabl e 12/10/2024 14:20:17 Brother Dementia [email or web address] Not availab le 12/10/2024 14:20:17 Notes:N/C Medical History No medical history recorded. Gynecological HistoryNo gynecological history recorded. Obstetrics History GPAL:G 0 P 0 0 0 0 Immunizations Vaccine Type Date Status Note Provider Nam e and Address Organization Details Recorded Time Pneumococcal conjugate PCV 13 4 completed [facility] 12/10/2024 16:32:17 influenza, unspecified formulation 3 completed [facility] 12/10/2024 16:32:41 SARS-COV-2 (COVID-19) vaccine, UNSPECIFIED 2 completed [facility] 12/10/2024 16:33:32 SARS-COV-2 (COVID-19) vaccine, UNSPECIFIED 3 completed [facility] 12/10/2024 16:33:41 SARS-COV-2 (COVID-19) vaccine, UNSPECIFIED 3 [facility] 12/10/2024 16:33:48 Past Encounters Encounter ID Performer Location Encounter Start Date Encounter Closed Date Diagnosis/Indication Diagnosis SNOMED-CT Code Diagnosis ICD10 Code Diagnosis Note [id number] REAL WALL NP [place] [address] [place] [address] 12/10/2024 08:58:52 12/11/2024 14:30:10 Emphysematous cystitis 12496980 N30.80 Followed by [facility]rologyCx. grew E. ColiStarte d on ceftriaxon e and flagyl, then just ceftriaxon eChanged to ceftin 500 mg bid x10 days upon dischargeA dd probiotic x 10 daysFollow up with Urology for cystoMonit or VS, labs sx.Update Urology with concernsCB C, BMP 12/17 Recurrent falls 66803061 2 R29.6 Unsteady gait due to PD, also deconditio niru due to acute illness and hospitaliz ationPT OT eval and tx.Goal is to return home, possibly as soon as next week Parkinson's disease 4904 9000 G20.A1 Continue home meds:jarocho et 25/100 2 tabs 5xdPer son has Neuro follow up next week.Monit or neuro status Hypertensive disorder 38 189028 I10 Not on any meds at this timeMonito r VS Hyperlipidemia 09194632 E78.5 Not on meds at this time Hypothyroidism 37475662 E03.9 Continue levothyrox ine 100 mcg qdTSH prn Rectal prolapse 81568732 K62.3 Per son, takes 2 fiber tabs bid at home as well as prn miralax to help keep bowels moving.Mon itor Peripheral neuropathic pain 339343137 M79.2 Continue gabapentin 100 mg q hsMonitor Abnormal u terine bleeding 8528919271 9100 N93.9 Continue medroxypro gesterone 10 mg qd Hyponatremia 60122200 E8 7.1 Na 132Already on NaCl 1000 mg qdBMP 12/17 to trend Chronic ri ght-sided heart failure 12119317 I50.810 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 Monitor Coronary arteriosclerosis 19825461 I25.10 s/p stent - on ASA 81 mg qd Anemia 104084709 D64.9 Hgb 10.5 -> 9.6Monitor for active bleedingCB C 12/17 to trend Health Concerns Section Related Observation LastModified by Organization Detai ls LastModified Time None Recorded Concern Status LastModified by Organization Details LastModified Time None Recorded Payers Encounter Date Sequence Insurance Name Policy Number Policy [place] Covered Member ID [place] Member ID Guarantor Name 12/10/2024 1 [place] [employer] Christen Moreno [id number] Christen Moreno 12/10/2024 2 [place] [id number] Christen Moreno [id number] Christen Moreno Notes Date Note Type Note Provider Name and Address Organization Details Recorded Time 12/10/2024 text/html Christen is seen today for initial intake. She is an 84 yo lady, admitted to [facility] from [facility] for continued care and rehab after a hosp. related to falls and UTI. She presented to [facility] 12/05 after falling at home, resulting on back, right shoulder, and head pain.In the ER, found to have bladder wall air and air in the bladder. UA neg. for infection. Referred to Urology, started aguirre and IV antibiotics. Noted to have E. Coli infection, treated with ceftriaxone and flagyl, then just ceftriaxone. Urology recommended 2 wks of abx. and outpt. f/u for cysto in office. 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 Clinically euvolemic. Upon exam, Christen is up OOB, ambulating in her room. Alert, in good spirits, feels well, no complaints, eager to return home.VSSLabs stable except sl. drop in Hgb (9.6), sl. drop in Na (132). SAEZ: high fall risk PMH: PD, lumbar stenosis, rectal prolapse, HLD, HTN, falls, hypothyroid, depression, peripheral neuropathy, uterine bleeding.MOLST: DNR, DNI, DNH, no dialysis, no g tube REAL WALL NP [address] [facility], [address], [place], [address], [facility] [employer] 12/10/2024 15:01:41 OBGyn Episode No OBEpisode recorded.
--- OUTSIDE RECORDS SUMMARY | 2024-12-29 12:49 | XMS_ITS | Encounter Summary ---
Author Organization [facility] Address [address] [place] [address] Care Team Providers Care Seasonal Driver Name Role Phone Carley Luque MD Primary Care Provider [phone] Encounter Details Date Type Department Care Team (Latest Contact Info) Description 12/20/2024 Travel Social History Tobacco Use Types Packs/Day Years [...] Care Team (Late st Contact Info) Description 10/10/2025 11:50 AM EST Office Visit [facility] Neu[facility] [address] [place] [address] Jones Brewer, CHIEF CLERK [address] [facility] [address] [place] [address] documented as of this encounter Visit Diagnoses Not on filedocumented in this encounter Care Teams Seasonal Driver Relationship Specialty Start Date End Date Carley Luque MD [address] [place] [address] [place] [address] PCP - General Family Medicine 08/23/22 documented as of this encounter
--- OUTSIDE RECORDS SUMMARY | 2024-12-29 12:49 | XMS_ITS | Continuity of Care Document ---
Author Organization [facility] [place] [facility], [facility] Address [address] [place] [address] Care Team Providers Care Manufacturing Coordinator Name Role Phone WILLOW GRACE AT [facility] OTHER AYANNA MOSLEY Primary Care Provider [phone] Assessment No assessment recorded. Plan of Treatment [...] Address Organization Details Recorded Time Recurrent falls 963323146 Active 2024 REAL WALL NP [address] , [address], [place], [address], [facility] 5 14:22:39 Urinary tract infectious disease 08393089 Active 2024 REAL WALL NP [address] [employer], [address], [place], [address], [facility] 5 14:22:44 Emphysemat ous cystitis 49117076 Active 2024 REAL WALL NP [address], [address], [place], [address], [facility] 5 14:23:10 Parkinson' s disease 17827684 Active 2024 REAL WALL NP [address], [address], [place], [address], [facility] [employer] [facility] 5 14:23:19 Rectal prolapse 41620167 Active 2024 REAL WALL NP [address], [address], [place], [address], [facility] 5 14:23:28 Spinal stenosis of lumbar region 62412079 Active 2024 s/p surgery REAL WALL NP [address], [address], [place], [address], [facility] 5 14:23:41 Hyperlipid emia 88849946 Active 2024 REAL WALL NP [address], [address], [place], [address], [facility] 5 14:23:47 Hypertensi ve disorder 00724178 Active 2024 REAL WALL NP [address], [address], [place], [address], [facility] 5 14:23:51 Hypothyroi dism 43110645 Active 2024 REAL WALL NP [address], [address], [place], [address], [facility] 5 14:24:02 Depressive disorder 94984658 Active 2024 REAL WALL NP [address], [place], [address], [facility] 5 14:24:10 Peripheral neuropathi c pain 449791683 Active 2024 REAL WALL NP [address] [facility], [address], [place], [address], [facility] 5 14:24:25 Abnormal uterine bleeding 102179472653 00 Active 2024 REAL WALL NP [address], [address], [place], [address], [facility] 5 14:24:41 Hyponatrem ia 59579666 Active 2024 REAL WALL NP [address], [place], [address], [facility] 5 14:42:44 Chronic right-side d heart failure 16581900 Active 2024 REAL WALL NP [address] [facility], [address], [place], [address], [facility] [employer] 5 14:44:20 Coronary arterioscl erosis 36462024 Active 2024 REAL WALL NP [address] [facility], [address], [place], [address], [facility] [employer] 5 14:53:25 Problem Notes None recorded. Medical Equipment None Reported. Allergies Allergen ID Allergen Name Allergen Category Reaction Reaction Severity Criticality Documentation Date Start Date Code Code System Note Provider Name and Address Organization Details Recorded Time 58797 Cipro medicatio n Not available Not available Not available 12/10/2024 50474 3 RxNorm Not Available Not Available Not Available 03562 Substance with sulfonami de structure and antibacte rial mechanism of action (substanc e) medicatio n Not available Not available Not available 12/10/2024 58957 8003 SNOMED Not Available Not Available Not Available Medications Not known to be on any medication Vitals Date Recorded Heart rate Respiratory rate Body temperature Oxygen saturation Oxygen saturation in Arterial blood by Pulse oximetry Systolic blood pressure Diastolic blood pressure Provider Name and Address Organization Details Last Updated DateTime 5 83 /min 18 /min 97.7 [degF] 97 % 97 % 153 mm[Hg] 100 mm[Hg] REAL WALL NP [address] [facility], [address], [place], [address], [employer] 5 09:50:39 Social History Question Answer Notes LastModified by Organizat ion Details LastModified Time Tobacco Smoking Status Never Smoker REAL WALL NP [address] [facility], [address], [place], [address], [employer] 12/10/2024 14:00:55 What Is Your Level Of Alcohol Consumption? None [email or web address] Information not available 12/10/2024 What Is Your Code Status? DNR/DNI DNR, DNI, DNH, No Dialysis, No G Tube [email or web address] Information not available 12/10/2024 Where Do You Live? Apartment [place] [email or web address] Information not available 12/10/2024 Do You Have A Medical Power Of Glass Selector? Yes Has HCP [email or web address] Information not available 12/10/2024 What Was The Date Of Your Most Recent Tobacco Screening? 12/10/2024 [email or web address] Information not available 12/10/2024 Do You Have An Out Of Hospital DNR? Yes [email or web address] Information not available 12/10/2024 Do You Use Any Illicit Or Recreational Drugs? No Information not available 12/10/2024 Has Tobacco Cessation Counseling Been Provided? No [email or web address] Information not available 12/10/2024 Do You Or Have You Ever Used Any Other Forms Of Tobacco Or Nicotine? No [email or web address] Information not available 12/10/2024 Sex: Unknown Functional Status None recorded. Mental Status None recorded. Family History Relationship Description Onset Age of this Age Resolved Age Notes LastModified by Organization Details LastModified Time Father Dementia [email or web address] Not availabl e 12/10/2024 14:20:17 Brother Dementia [email or web address] Not availab le 12/10/2024 14:20:17 Notes:N/C Medical History No medical history recorded. Gynecological HistoryNo gynecological history recorded. Obstetrics History GPAL:G 0 P 0 0 0 0 Immunizations Vaccine Type Date Status Note Provider Nam e and Address Organization Details Recorded Time Pneumococcal conjugate PCV 13 4 completed [facility] 12/10/2024 16:32:17 influenza, unspecified formulation 3 completed [facility] 12/10/2024 16:32:41 SARS-COV-2 (COVID-19) vaccine, UNSPECIFIED 2 completed [facility] 12/10/2024 16:33:32 SARS-COV-2 (COVID-19) vaccine, UNSPECIFIED 3 completed [facility] 12/10/2024 16:33:41 SARS-COV-2 (COVID-19) vaccine, UNSPECIFIED 3 [facility] 12/10/2024 16:33:48 Past Encounters Encounter ID Performer Location Encounter Start Date Encounter Closed Date Diagnosis/Indication Diagnosis SNOMED-CT Code Diagnosis ICD10 Code Diagnosis Note [id number] REAL WALL NP [place] [address] [place] [address] 12/10/2024 08:58:52 12/11/2024 14:30:10 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 grew E. ColiStarte d on ceftriaxon e and flagyl, then just ceftriaxon eChanged to ceftin 500 mg bid x10 days upon dischargeA dd probiotic x 10 daysFollow up with Urology for cystoMonit or VS, labs sx.Update Urology with concernsCB C, BMP 12/17 Recurrent falls 19788473 2 R29.6 Unsteady gait due to PD, also deconditio niru due to acute illness and hospitaliz ationPT OT eval and tx.Goal is to return home, possibly as soon as next week Parkinson's disease 4904 9000 G20.A1 Continue home meds:jarocho et 25/100 2 tabs 5xdPer son has Neuro follow up next week.Monit or neuro status Hypertensive disorder 38 679420 I10 Not on any meds at this timeMonito r VS Hyperlipidemia 61080604 E78.5 Not on meds at this time Hypothyroidism 93610277 E03.9 Continue levothyrox ine 100 mcg qdTSH prn Rectal prolapse 60209562 K62.3 Per son, takes 2 fiber tabs bid at home as well as prn miralax to help keep bowels moving.Mon itor Peripheral neuropathic pain 966893241 M79.2 Continue gabapentin 100 mg q hsMonitor Abnormal u terine bleeding 9160981217 9100 N93.9 Continue medroxypro gesterone 10 mg qd Hyponatremia 74495494 E8 7.1 Na 132Already on NaCl 1000 mg qdBMP 12/17 to trend Chronic ri ght-sided heart failure 06342118 I50.810 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 Monitor Coronary arteriosclerosis 17875845 I25.10 s/p stent - on ASA 81 mg qd Anemia 042536514 D64.9 Hgb 10.5 -> 9.6Monitor for active bleedingCB C 12/17 to trend [id number] REAL WALL NP [place] [address] [place] [address] 12/13/2024 09:26:15 12/16/2024 12:22:05 Emphysematous cystitis 42429127 N30.80 Followed by Urology in hosp.Cx. grew E. ColiStarte d on ceftriaxon e and flagyl, then just ceftriaxon eChanged to ceftin 500 mg bid x10 days upon dischargeA dded probiotic x 10 daysFoley out, PVRs trended here, almost all 300s ml or less. Will change PVR to prn q shift if no void or s/s retention. Follow up with Urology for cysto as outpt.Myra tor VS, labs sx.Update Urology with concernsFo llow labs as outpt. Recurrent falls 69224539 2 R29.6 Unsteady gait due to PD, also deconditio niru due to acute illness and hospitaliz ationPT OT eval and tx.Goal is to return home, possibly as soon as Monday Parkinson's disease 4904 9000 G20.A1 Continue home meds:jarocho et 25/100 2 tabs 5xdPer son has Neuro follow up next week.Monit or neuro status here. Rectal prolapse 08475269 K62.3 Per son, takes 2 fiber tabs bid at home as well as prn miralax to help keep bowels moving. CUrrently in place here.Monit or Hyponatremia 21820296 E8 7.1 Na 132Already on NaCl 1000 mg qdTrend BMP as outpt. Hypothyroidism 81448436 E03.9 Continue levothyrox ine 100 mcg qdTSH prn Peripheral neuropathic pain 096248889 M79.2 Continue gabapentin 100 mg q hsMonitor Abnormal u terine bleeding 4694103813 9100 N93.9 Continue medroxypro gesterone 10 mg qd Coronary arteriosclerosis 37610107 I25.10 s/p stent - on ASA 81 mg qd Anemia 261101844 D64.9 Hgb 10.5 -> 9.6Monitor for active bleedingCB C as outpt. to trend Hypertensive disorder 38 613007 I10 Not on any meds at this timeBP running on the higher side of nl. 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 Monitor Health Concerns Section Related Observation LastModified by Organization Detai ls LastModified Time None Recorded Concern Status LastModified by Organization Details LastModified Time None Recorded Payers Encounter Date Sequence Insurance Name Policy Number Policy [place] Covered Member ID [place] Member ID Guarantor Name 12/13/2024 1 [place] [employer] Christen Moreno [id number] Christen Moreno 12/13/2024 2 [place] [id number] Christen Moreno [id number] Christen Moreno Notes Date Note Type Note Provider Name and Address Organization Details Recorded Time 12/13/2024 text/html Christen is seen today for an acute visit. She is an 84 yo lady, admitted to [facility] 12/08/24 from [facility] for continued care and rehab after a hosp. related to falls and UTI.She presented to [facility] 12/05 after falling at home, resulting on [...] euvolemic. Upon exam, Christen is up OOB, just finished breakfast, asif. 100%.Offers no complaints, feels good. Eager to return home.PVRs being followed, overall 300s or less. Only 2 out of 15 PVRs high - 600s. Denies any sx.VSS except for elevated SBP - 150s - DBP mostly 70s-80s.Working with rehab, no concerns, says she is feeling stronger.Denies other complaints at this time.No bowel issues reported, back on home bowels regime.Labs stable 12/10 except sl. drop in Hgb (9.6), sl. drop in Na (132).Continues on abx. for cystitis. SAEZ: high fall risk PMH: PD, lumbar stenosis, rectal prolapse, HLD, HTN, falls, hypothyroid, depression, peripheral neuropathy, uterine bleeding.MOLST: DNR, DNI, DNH, no dialysis, no g tube REAL WALL, [place] [address] [facility], [address], [place], [address], [facility] [employer] 12/13/2024 10:06:59 OBGyn Episode No OBEpisode recorded.
--- OUTSIDE RECORDS SUMMARY | 2024-12-29 12:49 | XMS_ITS | Encounter Summary ---
Author Organization [facility] Address [address] [place] [address] Care Team Providers Care Main Galley Scullion Name Role Phone Carley Luque MD Primary Care Provider [phone]- [phone] Reason for Visit * Reason Comments Medication Refill Encounter Details Date Type Department Care Team (Late Contact Info) Description 01/11/2023 Refill [facility] [address] [phone] Jones Brewer, SHELBY [address] [place] [phone] Parkinson's disease (HCC); Constipation, unspecified constipation [...] Department Care Team (Late Contact Info) Description 10/10/2025 11:50 AM EST Office Visit [facility] [address] [place] [phone] Jones Brewer, WHITESMITH [address] [place] [address] documented as of this encounter Visit Diagnoses Diagnosis Parkinson's disease (HCC) Paralysis agitans Constipation, unspecified constipation type documented in this encounter Care Teams Main Galley Scullion Relationship Specialty Start Date End Date Carley Luque MD [address] [place] [phone] PCP - General Family Medicine 08/23/22 documented as of this encounter
--- OUTSIDE RECORDS SUMMARY | 2024-12-29 12:49 | XMS_ITS | Encounter Summary ---
Author Organization [facility] Address [address] [place] [address] Care Team Providers Care Supervisor Of Communications Name Role Phone Carley Luque MD Primary Care Provider [phone]- [phone] Reason for Visit * Reason Comments Medication Refill Encounter Details Date Type Department Care Team (Late Contact Info) Description 04/15/[address] [facility] Neurology [address] [phone] Jones Brewer APRN [address] [phone] Parkinson's disease (HCC) Social History Tobacco Use [...] Description 10/10/2025 11:50 AM EST Office Visit [facility] Neurology [address] [place] [phone] oJnes Brewer, CAR ELECTRONICS INSTALLER 35 [facility] [address] [place] [address] documented as of this encounter Visit Diagnoses Diagnosis Parkinson's disease (HCC) Paralysis agitans documented in this encounter Care Teams Supervisor Of Communications Relationship Specialty Start Date End Date Carley Luque MD [address] [place] [phone] PCP - General Family Medicine 08/23/22 documented as of this encounter
--- OUTSIDE RECORDS SUMMARY | 2024-12-29 12:49 | XMS_ITS | Encounter Summary ---
Author Organization [facility] Address [address] [place] [address] Care Team Providers Care Radio Equipment Repairer Name Role Phone Carley Luque MD Primary Care Provider Reason for Visit * Reason Comments FA - ONGENTYS Encounter Details Date Type Department Care Team (Late st Contact Info) Description 12/05/2024 Telephone [facility] Neurology [address] [place] [phone] Provider, Kameron, [address] [place] [address] FA - ONGENTYS Social History Tobacco Use Types Packs/Day [...] encounter Miscellaneous Notes * Telephone Encounter - Rachel Marshwinston - 12/05/2024 1:02 PM EST Called patient at [phone], spoke with MANNY. Notified patient of high copay. Patient stated copay is unaffordable. Patient gave verbal consent for Financial Assistance through [employer] Does patient have government funded insurance? (Medicare, Medicaid, , etc) Yes Medication: ONGENTYS 25 MG CAPSULE Best Contact Number/Time of day: [phone] Email: Diagnosis / ICD-10: Parkinson's disease without dyskinesia or fluctuating manifestations (HCC) [G20.A1] DWAIN (Annual Gross Income): $42,000 HH (Household Size): 1 How would the patient like to sign paperwork? Docusign Additional Information: PATIENT WOULD LIKE TO APPLY FOR [employer]. THANK YOU! documented in this encounter Plan of Treatment Upcoming Encounters Date Type Department Care Team (Late st Contact Info) Description 10/10/2025 11:50 AM EST Office Visit [facility] Neurology [address] [place] [phone] Jones Brewer, SHELBY 35 [facility] [address] [place] [phone] documented as of this encounter Visit Diagnoses Not on filedocumented in this encounter Care Teams Radio Equipment Repairer Relationship Specialty Start Date End Date Carley Luque MD [address] [place] [phone] PCP - General Family Medicine 08/23/22 documented as of this encounter
--- OUTSIDE RECORDS SUMMARY | 2024-12-29 12:49 | XMS_ITS | Encounter Summary ---
Author Organization [facility] Address [address] [place] [address] Care Team Providers Care Sausage Grinder Name Role Phone Carley Luque MD Primary Care Provider [phone]- [phone] Reason for Visit * Reason Comments Parkinson's Disease Encounter Details Date Type Department Care Team (Late st Contact Info) Description 12/20/2024 11:50 AM EST Office Visit [facility] Neurology [address] [place] [phone] Jones Brewer, SHELBY 35 [facility] [address] [place] [address] Parkinson's disease without dyskinesia or fluctuating manifestations (HCC) (Primary Dx) Social History Tobacco Use Types Packs/Day Years [...] PM EDT documented as of this encounter Last Filed Vital Signs Vital Sign Reading Time Taken Comments Blood Pressure 158/54 12/20/2024 11:50 AM EST Pulse 88 12/20/2024 11:50 AM EST Temperature - - Respiratory Rate - - Oxygen Saturation - - Inhaled Oxygen Concentration - - Weight 50.8 kg (112 lb) 12/20/2024 11:50 AM EST Height 162.6 cm (5' 4 ) 12/20/2024 11:50 AM EST Body Mass Index 19.22 12/20/2024 11:50 AM EST documented in this encounter Patient Instructions * Patient Instructions* Jones Brewer APRN - 12/20/2024 12:31 PM EST We would like to see you for a follow up at our next available appointment. Please don't hesitate to contact us with any questions or concerns beforehand. documented in this encounter Progress Notes * Jones Brewer APRN - 12/20/2024 11:50 AM EST [facility] [address] [place] [address], [address] [place], [address] Name: Christen Branham Date of : 1940 Age: 84 y.o. CC: Parkinson's Disease F/U History of Present Illness Christen Branham is a Right-handed 84 y.o. female female w/ pmhx of parkinson's disease w/ neurogenic orthostatic hypotension, lumbar spine DDD, cervical spine DDD, idiopathic progressive neuropathy, GONZALEZ, HTN, IBS-C, CAD, hypothyroidism d/t milton's thyroiditis, osteoporosis, who presents forF/U of parkinson's disease. She was diagnosed with PD in 2019 by a neurologist in [place], [place] (Dr. Nuñez). From initial consult on 08/23/2022: Her initial symptoms concerning for PD include resting tremor, flat affect, micrographia in either 2018 and 2019. She has had a positive response with taking levodopa. Currently she has noticed she moves more slowly but this has improved with taking sinemet. She denies having freezing of movement or trouble initiating movement. She has tremors of her hands, left worse than right, that are present at rest and with movement. She feels her tremors improved with taking sinemet and are worse with fatigue and when her sinemet wears off. She reports having trouble standing from a seated position. She has some trouble with tasks requiring fine motor control and has noticed she has micrographia. She also has hypophonia. She has had 2 fainting spells over the past year, last occurring in October 2021. She feels lightheaded with standing. She lost her sense of smell and taste in 2016. She has felt intermittent lightheadedness since 2019. She has issue with constipation and urinary frequency. She reports having uti-like symptoms withcramping and tightness in her lower right pelvic/abdominal region along with the sense or urinary urgency and has had evaluations by urologists in [place] in the past and was found to have no abnormalities. She used to have the sensation of burning in her feet and numbness that kept her from falling to sleep but this has improved with taking gabapentin and thought to be due to peripheral neuropathy. She has had a positive response to taking levodopa noticing a dose-dependent response within 30 minutes of taking and wearing off 15-60 minutes before the next. She denies having any side effects. She has only been on sinemet for treatment of her parkinson's disease. She participates in aqua-aerobics three times per week. She participates in kickboxing classes two times per week. She attends a balance class once per week. She completed PT, OT, and ST for PD in 2020. Other Pertinent Non-Motor ROS: (+) for fatigue, weight loss, mild issue with memory, vivid dreams (-) for confusion, visual hallucinations, delusional thoughts or behaviors, acting out of dreams, talking in sleep, depression Family History: (+) for tremors, shuffling gait, and dementia (father) (-) for parkinson's disease, other neurologic movement disorders Last Visit: Christen Branham was last seen 03/15/2024 at which time STOP zoloft; start Pristiq 50mg every day. Labs/Imaging: N/A Interval Hx: Since their last visit, Christen Branham reports : Recently had UTI - was in hospital and rehab but is now home. In the hospital her voice was worse and she had worsening tremors. Had rectal prolapse - inoperable so no longer using pool. Meds were reconciled - no more aricept and ongentys. Recently saw cardiology - and has mitral regurgitation but EF is good. Started on sodium daily due to chronic hyponatremia. Continues to be dizzy and weak but resolves by noon. Still daytime exhaustion She is trying to get into assistive living. Dysphagia - sometimes pills can get stuck, no need for barium swallow. ? DBS Sleep - due to bladder. Up around 3 times nightly. From prior visits: As for motor symptoms, Tremor: Stable Rigidity/stiffness: Slow: Gait: Walks with a walking stick for support Falls: denies Imbalanced/unstable: yes As for exercise: she will try to do water aerobics for an hour daily, 3 times with an instructor. She is not going as much due to exhaustion or feeling dizzy. She will also go to chair yoga or perform stretching exercises. Dysphagia: Denies, but may get a 1/2 pill stuck Double vision: yes, but this is chronic. As for non-motor symptoms, Constipation: major problem BM fiber, miralax drink 2 liters of fluids daily. Did have a period of diarrhea but has resolved. Urinary symptoms: denies Lightheadedness/dizziness: Denies, is not orthostatic but 15 point drop. Sleep at night: Denies - vivid dreams for years, questionable RBD Hallucinations/Delusions: Denies Cognition: stable Current PD Medication Regimen: Sinemet 25-100mg 2 tabs QID (5am, 9am, 1pm, 5pm) carbidopa-levodopa CR 25/100mg - 2 tab at bedtime at 9pm. Gabapentin 100mg at bedtime Historical Meds: Ongentys - not effective, cost prohibitive. Gabapentin - sedation at higher doses. Allergies Ciprofloxacin and Sulfa antibiotics PMH: Past Medical History: Diagnosis Date Coronary artery disease Depression Hypertension Parkinson's disease (HCC) Reviewed and unchanged since previous visit. SOC: Social History Socioeconomic History Marital status: Spouse name: Not on file Number of children: Not on file Years of education: Not on file Highest education level: Not on file Occupational History Not on file Tobacco Use Smoking status: Former Types: Cigarettes Smokeless tobacco: Never Substance and Sexual Activity Alcohol use: Yes Comment: half glass wine month Drug use: Never Sexual activity: Not on file Other Topics Concern Not on file Social History Narrative Not on file Social Determinants of Health Financial Resource Strain: Not on file Food Insecurity: Not on file Transportation Needs: No Transportation Needs (12/17/2024) Received from [facility] OASIS A1250: Transportation Lack of Transportation (Medical): No Lack of Transportation (Non-Medical): No Patient Unable or Declines to Respond: No Physical Activity: Not on file Stress: Not on file Social Connections: Not on file Housing Stability: Medium Risk (07/17/2022) Received from [facility], [facility] Residential Stability What is your housing situation today?: I have housing How many times have you moved in the past 12 months?: One time Reviewed and unchanged since previous visit. FMH: History reviewed. No pertinent family history. Reviewed and unchanged since previous visit. MEDS: Current Outpatient Medications Medication Sig Dispense Refill gabapentin (NEURONTIN) 100 MG capsule Take 1 capsule (100 mg total) by mouth nightly. aspirin enteric coated (ECOTRIN LOW STRENGTH) 81 MG EC tablet Take 1 tablet (81 mg total) by mouth daily. calcium carbonate (OS-GISELLE) 600 MG tablet Take 1 tablet (600 mg total) by mouth every morning with breakfast. carbidopa-levodopa (SINEMET) 25-100 MG per tablet Take 2 tablets by mouth 4 (four) times a day. 720tablet 1 carbidopa-levodopa ER (SINEMET CR) 25-100 MG per tablet Take 2 tablets by mouth nightly. 180 tablet1 CRANBERRY PO Take by mouth. Cyanocobalamin (VITAMIN B-12 PO) Take by mouth. estradiol (ESTRACE) 0.01 % vaginal cream levothyroxine (SYNTHROID, LEVOTHROID) 100 MCG tablet Take 1 tablet (100 mcg total) by mouth every morning. medroxyPROGESTERone (PROVERA) 10 MG tablet Take 1 tablet (10 mg total) by mouth daily. Misc Natural Products (LUTEIN 20 PO) Take 1 tablet by mouth daily. multivitamin Tab tablet Take 1 tablet by mouth daily. psyllium (METAMUCIL) 58.12 % Pack packet Take 1 packet by mouth. Vitamin D3 (CHOLECALCIFEROL) 50 MCG (2000 UT) tablet Take 1 tablet (2,000 Units total) by mouth daily. No current facility-administered medications for this visit. Reviewed and unchanged since previous visit unless otherwise noted above. Review of Systems I personally reviewed the 10 Review of Systems on the form filled out by the patient. See scanned document under Media section of chart. Exam: Neurological Exam Mental Status Awake, alert and oriented to person, place and time. Speech is normal. Language is fluent with no aphasia. Attention and concentration are normal. Unified Parkinson's Disease Rating Scale Speech: 0- Normal: No speech problems. Facial Expression: 1- Slight: Minimal masked facies manifested only by decreased frequency of blinking. Rigidity: Neck: 0- Normal: No rigidity. RUE: 0- Normal: No rigidity. LUE: 0- Normal: No rigidity. RLE: 0- Normal: No rigidity. LLE: 0- Normal: No rigidity. Finger Tapping: Right: 1- Slight: Any of the following: a) the regular rhythm is broken with one ortwo interruptions or hesitations of the tapping movement, b) slight slowing, c) the amplitude decrements near the end of the 10 taps. Left: 1- Slight: Any of the following: a) the regular rhythm is broken with one or two interruptions or hesitations of the tapping movement, b) slight slowing, c) the amplitude decrements near the end of the 10 taps. Hand Movements: Right: 1- Slight: Any of the following: a) the regular rhythm is broken with one ortwo interruptions or hesitations of the tapping movement, b) slight slowing, c) the amplitude decrements near the end of the task. Left: 1- Slight: Any of the following: a) the regular rhythm is broken with one or two interruptions or hesitations of the tapping movement, b) slight slowing, c) the amplitude decrements near the end of the task. Pronation-Supination of HandsRight: 0- Normal: No problems Left: 1- Slight: Any of the following: a) the regular rhythm is broken with one or two interruptions or hesitations of the tapping movement, b) slight slowing, c) the amplitude decrements near the end of the task. Toe Tapping: Right: 1- Slight: Any of the following: a) the regular rhythm is broken with one or two interruptions or hesitations of the tapping movement, b) slight slowing, c) the amplitude decrements near the end of the ten taps. Left: 2- Mild: Any of the following: a) 3-5 interruptions during tapping movements, b) mild slowing, c) amplitude decrements midway in the task. Leg Agility: Right: 1- Slight: Any of the following: a) the regular rhythm is broken with one or two interruptions or hesitations of the tapping movement, b) slight slowing, c) amplitude decrements near the end of the tasks. Left: 1- Slight: Any of the following: a) the regular rhythm is broken with one or two interruptions or hesitations of the tapping movement, b) slight slowing, c) amplitude decrements near the end ofthe tasks. Arising from Chair: 0- Normal: No problems. Able to arise quickly without hesitation. Gait: 3- Moderate: Requires an assistance device for safe walking (walking stick, walker) but not aperson. Freezing of Gait: 0- Normal: No freezing. Postural Stability: 3- Moderate: Stands safely, but with absence of postural response, falls if notcaught by examiner. Posture: 2- Mild: Define flexion, scoliosis or leaning to one side, but patient can correct postureto normal posture when asked to do so. Global Spontaneity of Movement (body bradykinesia): 1- Slight: Slight global slowness and poverty of spontaneous movements. Postural Tremor of Hands: Right Hand: 0- Normal. No tremor. Left Hand: 0- Normal. No tremor. Kinetic Tremor of Hands: Right Hand: 0- Normal: No tremor. Left Hand: 0- Normal: No tremor. Rest Tremor Amplitude: RUE: 0- Normal: No tremor. LUE: 0- Normal: No tremor. RLE: 0- Normal: No tremor. LLE: 0- Normal: No tremor. Lip/Jaw ratings: 0- Normal: No tremor. Constancy of Rest Tremor: 0- Normal: No tremor. Were dyskinesias (chorea or dystonia) present during examination?: No If yes, did these movements interfere with your ratings?: No Maryellen and Yahr Stage: 3- Mild to moderate involvement, some postural instability but physically independent, needs assistance to recover from pull test. Assessment Right-handed 84 y.o. female who is here today to follow up on diagnosis and management of Parkinson's Disease (sx ~ '18, dx 2020). On exam, 3.5 hours post dose her UPDRS is stable from her previous visit. It's because of this that we won't make any medication changes at this time to her dopaminergic therapy. We will see her for a F/U in 6+ months or sooner if needed. Plan: 1.) no changes at this time. F/U 6+ months Jones Brewer APRN 12/20/2024 12:32 PM I spent a total of 40 minutes on the day of the visit. During the day of the visit, time was spent including the following: Examining the patient Chart review in preparation for the visit Documenting in the patient record Medication Reconciliation I plan on serving as a continuing focal point as part of ongoing care for the primary diagnosis addressed in this encounter. documented in this encounter Plan of Treatment Upcoming Encounters Date Type Department Care Team (Late st Contact Info) Description 10/10/2025 11:50 AM EST Office Visit [facility] Neurology [address] [phone] Jones Brewer APRN [address] [address] documented as of this encounter Visit Diagnoses Diagnosis Parkinson's disease without dyskinesia or fluctuating manifestations (HCC)- Primary documented in this encounter Care Teams Sausage Grinder Relationship Specialty Start Date End Date Carley Luque MD [address] [place] [phone] PCP - General Family Medicine 08/23/22 documented as of this encounter
--- OUTSIDE RECORDS SUMMARY | 2024-12-29 12:49 | XMS_ITS | Clinical Summary ---
Author Organization [facility] Address [address] [place] [address] Care Team Providers Care Professor Sculpture Name Role Phone Carley Luque MD Primary Care Provider [phone] Allergies Active Allergy Reactions Criticality Noted Date Comments Ciprofloxacin Rash/Dermatitis Low 07/20/2022 Sulfa Antibiotics Rash/Dermatitis Low 07/20/2022 Medications Medication Sig Dispensed Refills Start Date End Date Status levothyroxine (SYNTHROID, LEVOTHROID) 100 MCG tablet Take 1 tablet (100 mcg total) by mouth every morning. 2 Active aspirin enteric coated (ECOTRIN LOW STRENGTH) [...] Active estradiol (ESTRACE) 0.01 % vaginal cream 3 Active Cyanocobalamin (VITAMIN B-12 PO) Take by mouth. Active CRANBERRY PO Take by mouth. Active carbidopa-levodopa ER (SINEMET CR) 25-100 MG per tabletIndications:P arkinson's disease without dyskinesia or fluctuating manifestations (HCC) Take 2 tablets by mouth nightly. 180 tablet 1 4 Active medroxyPROGESTERone (PROVERA) 10 MG tablet Take 1 tablet (10 mg total) by mouth daily. 06/18/20 Active psyllium (METAMUCIL) 58.12 % Pack packet Take 1 packet by mouth. Active carbidopa-levodopa (SINEMET) 25-100 MG per tabletIndications:P arkinson's disease (HCC) Take 2 tablets by mouth 4 (four) times a day. 720 tablet 1 5 Active gabapentin (NEURONTIN) 100 MG capsule Take 1 capsule (100 mg total) by mouth nightly. Active atorvastatin (LIPITOR) 20 MG tablet Take 1 tablet (20 mg total) by mouth daily. 2 12/20/19 Discontinued(Med List Clean-up/Old Med - No E-Cancel/No AVS) gabapentin (NEURONTIN) 300 MG capsule Take 1 capsule (300 mg total) by mouth nightly. 2 12/20/19 Discontinued diphenhydrAMINE HCl (BENADRYL PO) Take by mouth. 12/20/19 Discontinued(Med List Clean-up/Old Med - No E-Cancel/No AVS) DULoxetine (CYMBALTA) 20 MG capsuleIndications: Parkinson's disease without dyskinesia or fluctuating manifestations (HCC) Take 1 capsule (20 mg total) by mouth nightly. 30 capsule 1 4 12/20/19 Discontinued(Med List Clean-up/Old Med - No E-Cancel/No AVS) donepezil (ARICEPT) 5 MG tabletIndications:S hort-term memory loss Take 1 tablet (5 mg total) by mouth nightly. 90 tablet 1 4 12/20/19 25 Discontinued(Med List Clean-up/Old Med - No E-Cancel/No AVS) amLODIPine (NORVASC) 5 MG tablet 12/20/19 Discontinued(Med List Clean-up/Old Med - No E-Cancel/No AVS) Opicapone 25 MG CapIndications:Park inson's disease without dyskinesia or fluctuating manifestations (HCC) Take 25 mg by mouth every evening. 90 capsule 1 5 12/20/19 25 Discontinued Active Problems Problem Noted Date Diagnosed Date [...] Urinary urgency 08/23/2022 Dyskinesia 08/23/2022 Atherosclerosis of [place] co ronary artery of [place] heart without angina pectoris 07/20/2022 Overview (08/23/2022): [...] neurology recommendations, plan is to work with [facility]. Increased frequency of [...] Encounters Date Type Department Care Team Description 12/20/2024 11:50 AM EST Office Visit [facility] [address] [address] Jones Brewer APRN Parkinson's disease without dyskinesia or fluctuating manifestations (HCC) (Primary Dx) 12/20/2024 Travel 12/05/2024 Telephone [facility] [address] [address] Provider, MD Kameron FA - ONGENTYS 11/20/2024 Scanned Document [facility] [address] [address] Neurology, Scan 11/20/2024 Refill [facility] [address] [phone] Jones Brewer APRN Parkinson's disease without dyskinesia or fluctuating manifestations (HCC) 11/19/2024 [facility] [address] [address] Jones Brewer APRN Parkinson's disease (HCC) 11/13/2024 [facility] [address] [address] Jones Brewer APRN Parkinson's disease without dyskinesia or fluctuating manifestations (HCC) 11/11/2024 [facility] [address] [address] Jones Brewer APRN Parkinson's disease without dyskinesia or fluctuating manifestations (HCC) 11/05/2024 Telephone [facility] [address] [phone] Kameron Levy MD ONGENTYS 11/04/2024 Orders Only [facility] [address] [address] Gary Tapia MD 10/24/2024 [facility] [address] [address] Jones Brewer APRN Prior Authorization (Ongentys 25mg Capsule) 10/14/2024 Orders Only [facility] [address] [address] Gary Tapia MD Parkinson's disease without dyskinesia or fluctuating manifestations (HCC) (Primary Dx); Urinary tract infection symptoms from Last 3 Months Social History Tobacco [...] Pulse 88 12/20/2024 11:50 AM EST Temperature 36.4 ??C (97.5 ??F) 08/21/2024 9:42 AM ED T Respiratory Rate 16 08/23/2022 10:24 AM EDT Oxygen Saturation 98% 08/21/2024 9:42 AM EDT Inhaled Oxygen Concentration - - Weight 50.8 kg (112 lb) 12/20/2024 11:50 AM EST Height 162.6 cm (5' 4 ) 12/20/2024 11:50 AM EST Body Mass Index 19.22 12/20/2024 11:50 AM EST Plan of Treatment Upcoming Encounters Date Type Department Care Team (Late st Contact Info) Description 10/10/2025 11:50 AM EST Office Visit [facility] [place] [address] [facility] [address] [place] [address] Jones Brewer, SHELBY [address] [facility] [address] [place] [address] Health Maintenance Due Date Last Done Comments DTaP/Tdap/Td Vaccines (1 - Tdap) 1959 Pneumococcal Vaccines 50+ (1 of 2 - PCV) 1958 Zoster (Shingles) Vaccine (1 of 2) 1989 DXA Bone Density (Females,Ages 65 and older) 01/04/2004 RSV Vaccine 60 years and older and Patients (1 - 1-dose 75+ series) 2014 Influenza Vaccine 05/30/2024 07/30/2023, 07/30/2023, 07/20/2022 COVID-19 Vaccine (4 - 2023-2 5 season) 2024 07/30/2023, 04/27/2023, 08/11/2022 Hepatitis B Vaccines Aged Out No long er eligible based on patient's age to complete this topic Advance Directives Documents on File Type Date Recorded Patient Manager Ui Expl anation Advance Directive-Scan 11/20/2024 Manny MONTENEGRO CE DIRECTIVE 02/28/2024 POA Care Teams Professor Sculpture Relationship Specialty Start Date End Date Carley Luque MD [address] [place] [address] [place] [address] PCP - General Family Medicine 08/23/22
--- OUTSIDE RECORDS SUMMARY | 2024-12-29 12:49 | XMS_ITS | Continuity of Care Document ---
Author Organization [facility], [facility] Address [address] [place] [address] Care Team Providers Care Hot Saw Helper Name Role Phone [facility] OTHER AYANNA MOSLEY Primary Care Provider Assessment [...] Address Organization Details Recorded Time Recurrent falls 993560694 Active 2024 REAL WALL NP [address] , [address], [place], [address], [facility] 5 14:22:39 Urinary tract infectious disease 30287008 Active 2024 REAL WALL NP [address], [address], [place], [address], [facility] 5 14:22:44 Emphysemat ous cystitis 90368133 Active 2024 REAL WALL NP [address], [address], [place], [address], [facility] 5 14:23:10 Parkinson' s disease 02703938 Active 2024 REAL WALL NP [address], [address], [place], [address], [facility] [employer] [facility] 5 14:23:19 Rectal prolapse 92262575 Active 2024 REAL WALL NP [address], [address], [place], [address], [facility] 5 14:23:28 Spinal stenosis of lumbar region 12985574 Active 2024 s/p surgery REAL WALL NP [address], [address], [place], [address], [facility] 5 14:23:41 Hyperlipid emia 28467045 Active 2024 REAL WALL NP [address], [address], [place], [address], [facility] 5 14:23:47 Hypertensi ve disorder 00419928 Active 2024 REAL WALL NP [address], [address], [place], [address], [facility] 5 14:23:51 Hypothyroi dism 94301447 Active 2024 REAL WALL NP [address], [address], [place], [address], [facility] 5 14:24:02 Depressive disorder 87792143 Active 2024 REAL WALL NP [address], [place], [address], [facility] 5 14:24:10 Peripheral neuropathi c pain 882394762 Active 2024 REAL WALL NP [address] [facility], [address], [place], [address], [facility] 5 14:24:25 Abnormal uterine bleeding 231450602508 00 Active 2024 REAL WALL NP [address], [address], [place], [address], [facility] 5 14:24:41 Hyponatrem ia 29715821 Active 2024 REAL WALL NP [address], [place], [address], [facility] 5 14:42:44 Chronic right-side d heart failure 69478253 Active 2024 REAL WALL NP [address] [facility], [address], [place], [address], [facility] 5 14:44:20 Coronary arterioscl erosis 70097094 Active 2024 REAL WALL NP [address] [facility], [address], [place], [address], [facility] [employer] [facility] 5 14:53:25 Problem Notes None recorded. Medical Equipment None Reported. Allergies Allergen ID Allergen Name Allergen Category Reaction Reaction Severity Criticality Documentation Date Start Date Code Code System Note Provider Name and Address Organization Details Recorded Time 86500 Cipro medicatio n Not available Not available Not available 12/10/2024 76063 3 RxNorm Not Available Not Available Not Available 89648 Substance with sulfonami de structure and antibacte rial mechanism of action (substanc e) medicatio n Not available Not available Not available 12/10/2024 08137 8003 SNOMED Not Available Not Available Not Available Medications Not known to be on any medication Vitals None Recorded Social History Question Answer Notes LastModified by Organizat ion Details LastModified Time Tobacco Smoking Status Never Smoker REAL WALL NP [address] [facility], [address], [place], [address], [facility] 12/10/2024 14:00:55 What Is Your Level Of Alcohol Consumption? None [email or web address] Information not available 12/10/2024 What Is Your Code Status? DNR/DNI DNR, DNI, DNH, No Dialysis, No G Tube [email or web address] Information not available 12/10/2024 Where Do You Live? Apartment ILF [email or web address] Information not available 12/10/2024 Do You Have A Medical Power Of Optometry Teacher? Yes Has HCP Information not available 12/10/2024 What Was The Date Of Your Most Recent Tobacco Screening? 12/10/2024 Information not available 12/10/2024 Do You Have An Out Of Hospital DNR? Yes Information not available 12/10/2024 Do You Use Any Illicit Or Recreational Drugs? No [email or web address] Information not available 12/10/2024 Has Tobacco Cessation Counseling Been Provided? No [email or web address] Information not available 12/10/2024 Do You Or Have You Ever Used Any Other Forms Of Tobacco Or Nicotine? No [email or web address] Information not available 12/10/2024 Sex: Unknown Functional Status None recorded. Mental Status None recorded. Family History Relationship Description Onset Age of this Age Resolved Age Notes LastModified by Organization Details LastModified Time Father Dementia [email or web address] Not availabl e 12/10/2024 14:20:17 Brother Dementia Not availab le 12/10/2024 14:20:17 Notes:N/C Medical History No medical history recorded. Gynecological HistoryNo gynecological history recorded. Obstetrics History GPAL:G 0 P 0 0 0 0 Immunizations Vaccine Type Date Status Note Provider Nam e and Address Organization Details Recorded Time Pneumococcal conjugate PCV 13 4 completed [facility] 12/10/2024 16:32:17 influenza, unspecified formulation 3 completed [facility] 12/10/2024 16:32:41 SARS-COV-2 (COVID-19) vaccine, UNSPECIFIED 2 completed [facility] 12/10/2024 16:33:32 SARS-COV-2 (COVID-19) vaccine, UNSPECIFIED 3 completed [facility] 12/10/2024 16:33:41 SARS-COV-2 (COVID-19) vaccine, UNSPECIFIED 3 completed [facility] 12/10/2024 16:33:48 Past Encounters Encounter ID Performer Location Encounter Start Date Encounter Closed Date Diagnosis/Indication Diagnosis SNOMED-CT Code Diagnosis ICD10 Code Diagnosis Note [id number] REAL WALL NP [facility] [address] [place] [address] 12/10/2024 08:58:52 12/11/2024 14:30:10 Emphysematous cystitis 31244188 N30.80 Followed by UrologyCx. grew E. ColiStarte d on ceftriaxon e and flagyl, then just ceftriaxon eChanged to ceftin 500 mg bid x10 days upon dischargeA dd probiotic x 10 daysFollow up with Urology for cystoMonit or VS, labs sx.Update Urology with concernsCB C, BMP 12/17 Recurrent falls 34914891 2 R29.6 Unsteady gait due to PD, also deconditio niru due to acute illness and hospitaliz ationPT OT eval and tx.Goal is to return home, possibly as soon as next week Parkinson's disease 4904 9000 G20.A1 Continue home meds:jarocho et 25/100 2 tabs 5xdPer son has Neuro follow up next week.Monit or neuro status Hypertensive disorder 38 822222 I10 Not on any meds at this timeMonito r VS Hyperlipidemia 91717566 E78.5 Not on meds at this time Hypothyroidism 71002483 E03.9 Continue levothyrox ine 100 mcg qdTSH prn Rectal prolapse 70777894 K62.3 Per son, takes 2 fiber tabs bid at home as well as prn miralax to help keep bowels moving.Mon itor Peripheral neuropathic pain 096429852 M79.2 Continue gabapentin 100 mg q hsMonitor Abnormal u terine bleeding 1276357076 9100 N93.9 Continue medroxypro gesterone 10 mg qd Hyponatremia 25520275 E8 7.1 Na 132Already on NaCl 1000 mg qdBMP 12/17 to trend Chronic ri ght-sided heart failure 20710211 I50.810 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 Monitor Coronary arteriosclerosis 67291294 I25.10 s/p stent - on ASA 81 mg qd Anemia 252294886 D64.9 Hgb 10.5 -> 9.6Monitor for active bleedingCB C 12/17 to trend [id number] REAL WALL NP [place] [address] [place] [address] 12/13/2024 09:26:15 12/16/2024 12:22:05 Emphysematous cystitis 69532449 N30.80 Followed by Urology in hosp.Cx. grew [...] concernsFo llow labs as outpt. Recurrent falls 79933139 2 R29.6 Unsteady gait due to PD, also deconditio niru due to acute illness and hospitaliz ationPT OT eval and tx.Goal is to return home, possibly as soon as Monday Parkinson's disease 4904 9000 G20.A1 Continue home meds:jarocho et 2 tabs 5xdPer son has Neuro follow up next week.Monit or neuro status here. Rectal prolapse 44698719 K62.3 Per son, takes 2 fiber tabs bid at home as well as prn miralax to help keep bowels moving. CUrrently in place here.Monit or Hyponatremia 29430636 E8 7.1 Na 132Already on NaCl 1000 mg qdTrend BMP as outpt. Hypothyroidism 94978151 E03.9 Continue levothyrox ine 100 mcg qdTSH prn Peripheral neuropathic pain 324341928 M79.2 Continue gabapentin 100 mg q hsMonitor Abnormal u terine bleeding 9277102256 9100 N93.9 Continue medroxypro gesterone 10 mg qd Coronary arteriosclerosis 36422652 I25.10 s/p stent - on ASA 81 mg qd Anemia 306848788 D64.9 Hgb 10.5 -> 9.6Monitor for active bleedingCB C as outpt. to trend Hypertensive disorder 38 193494 I10 Not on any meds at this timeBP running on the higher side of nl. 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 Monitor [id number] Luis Antonio Palacio MD [place] [address] [place], [place] [address] 12/16/2024 10:31:06 12/18/2024 12:04:31 Emphysematous cystitis 29655628 N30.80 Noted to have air in bladderEva l by urology and covered with rocephin and flagyl, now rocephin x 2 week course, to f/u out patient for cystoscopy f/u in place Recurrent falls 12682007 2 R29.6 improved with therapy now cleared for discharge at baseline Parkinson's disease 4904 9000 G20.A1 sinemet 25/100 2 tabs 5xdcoordin ate with neuro with f/u in place 12/20 Rectal prolapse 34103845 K62.3 added to PMH Hyponatremia 76798507 E8 7.1 on salt tabs improvedre peat bmp at f/u with pcp Hypothyroidism 95588554 E03.8 synthroid 100 mcg qdcontinue d Peripheral neuropathic pain 953746028 M79.2 gabapentin 100 mg qhscontinu ed Abnormal u terine bleeding 3773380641 9100 N93.9 carrying dxcontinue medroxypro gesterone 10 mg qd Coronary arteriosclerosis 46019910 I25.10 known hx of s/p stent continued on ASA 81 mg qd Chronic ri ght-sided heart failure 50080686 I50.810 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 Monitor respirator y and fluid status Health Concerns Section Related Observation LastModified by Organization Detai ls LastModified Time None Recorded Concern Status LastModified by Organization Details LastModified Time None Recorded Payers Encounter Date Sequence Insurance Name Policy Number Policy [place] Covered Member ID [place] Member ID Guarantor Name 12/16/2024 1 [place] [employer] Christen Moreno [id number] Christen Moreno 12/16/2024 2 [place] [id number] Christen Moreno [id number] Christen Moreno Notes Date Note Type Note Provider Name and Address Organization Details Recorded Time 025 text/ht ml Patient is an 84 yo female admit from hospital presenting after fall with back and shoulder pain. Work up negative for fracture however Noted to have air in bladder, with question UTI. Eval by urology and covered with rocephin and flagyl, now rocephin x 2 week course, to f/u out patient for cystoscopy PMH is significant forhtnhldrectal prolapselumbar spinal stenosisparkinsons dxhypothyroidneuropathydepressionhx uterine bleeding Patient admitted to facility for continued care with therapy eval has rapidly improved to baseline now preparing for discharge home Discussed with son and son-in-law in roomneurology appt 12/20, with urology and PCP appt being set up by son Luis Antonio Palacio MD [address] [place] [address], [address], [place], [address] , [facility] [employer] 12/16/2024 11:23:39 OBGyn Episode No OBEpisode recorded.
--- OUTSIDE RECORDS SUMMARY | 2024-12-29 12:49 | XMS_ITS | Encounter Summary ---
Author Organization [facility] Address [address] [place] [address] Care Team Providers Care Enterprise Engineer Name Role Phone Carley Luque MD Primary Care Provider [phone] Encounter Details Date Type Department Care Team (Late st Contact Info) Description 02/08/2023 Scanned Document [facility] [address] [phone] Marya Nolen PA [address] [address] Social History Tobacco Use Types Packs/Day Years [...] Description 10/10/2025 11:50 AM EST Office Visit [facility] [address] [place] [address] Jones Brewer, SHELBY 35 [facility] [address] [place] [address] documented as of this encounter Visit Diagnoses Not on filedocumented in this encounter Care Teams Enterprise Engineer Relationship Specialty Start Date End Date Carley Luque MD [address] [place] [address] [place] [address] PCP - General Family Medicine 08/23/22 documented as of this encounter
--- OUTSIDE RECORDS SUMMARY | 2024-12-29 12:49 | XMS_ITS | Encounter Summary ---
Author Organization [facility] Address [address] [place] [address] Care Team Providers Care Grounds Keeper Name Role Phone Carley Luque MD Primary Care Provider [phone] Encounter Details Date Type Department Care Team (Late st Contact Info) Description 11/20/2024 Scanned Document [facility] [address] [phone] Neurology, Scan Social History Tobacco Use Types [...] Description 10/10/2025 11:50 AM EST Office Visit [facility] [address] [phone] Jones Brewer, CARD SORTER 35 [facility] [address] [place] [phone] documented as of this encounter Visit Diagnoses Not on filedocumented in this encounter Care Teams Grounds Keeper Relationship Specialty Start Date End Date Carley Luque MD [address] [place] [address] [place] [address] PCP - General Family Medicine 08/23/22 documented as of this encounter
[2024-12-29 12:56] LABS: Troponin-I High Sensitivity 11.9 ng/L (<3.5-17.0)
[2024-12-29 13:10] LABS: Alanine Aminotransferase < 6 U/L (0-31); Albumin Level 3.4 g/dL (3.5-5.0); Alkaline Phosphatase 75 U/L (39-117); Anion Gap 15 (12-20); Aspartate Amino Transferase 23 U/L (5-31); Bilirubin Total 0.5 mg/dL (0.0-1.0); Blood Urea Nitrogen 15 mg/dL (9-16); Calcium 8.6 mg/dL (8.4-10.2); Carbon Dioxide 25 mmol/L (22-29); Chloride 98 mmol/L (96-108); Creatinine Clr Calc Pharmacy 39.4; Estimated Glomerular Filt Rate > 60; Glucose Random 114 mg/dL (60-115); Magnesium 1.8 mg/dL (1.6-2.6); Potassium 3.5 mmol/L (3.3-5.1); Sodium 134 mmol/L (135-145); Total Protein 6.7 g/dL (6.5-8.0)
[2024-12-29 14:24] VITALS: BP 178/91; PULSE 90; RESP 20; TEMP 36.4; O2SAT 97
[2024-12-29 14:44] LABS: Appearance Urine Cloudy; Color Urine Yellow; Glucose Urine UA Negative (Negative); Leukocyte Esterase Urine Moderate (2+) (Negative); Nitrite Urine Negative (Negative); Specific Gravity - Urine 1.015 (1.005-1.025); UMIC TRIGGER UACC YES; Urine Blood Negative (Negative); Urine Ketones Negative (Negative); Urine Protein Negative (Neg-Trace)
[2024-12-29 14:58] LABS: Bacteria Urine 4+ (None Seen); Hyaline Casts Urine 0-2 /LPF (0-2); RBC Urine 0-2 /HPF (0-2); Squamous Epithelial Cell Urine 0-2 /HPF (0-2); UACC Culture Trigger YES; WBC Urine >50 /HPF (0-5)
[2024-12-29 15:56] VITALS: BP 178/91; PULSE 90; RESP 20; TEMP 36.4; O2SAT 97
--- NOTE | 2024-12-29 16:23 | PC.NURSE ---
Pt tolerated gail to laceration posterior head well; pt states she thinks she had an adverse reaction to tdap and has declined the vaccination at this time; A+OX3; vss@baseline
[2024-12-29 16:30] LABS: Troponin-I High Sensitivity 10.1 ng/L (<3.5-17.0)
[2024-12-29 17:07] VITALS: BP 176/88; PULSE 88; RESP 20; TEMP 36.4; O2SAT 97
== END 2024-12-29 17:09 | disposition home or self-care (01) ==
PROVIDERS: Physician Assistant; Emergency Provider Emergency Medicine; PCP Student in an Organized Health Care Education/Training Program
DX: S06.0X0A Concussion without loss of consciousness, initial encounter (principal); S01.91XA Laceration without foreign body of unspecified part of head, initial encounter; M54.2 Cervicalgia; R07.81 Pleurodynia; J90 Pleural effusion, not elsewhere classified; R94.31 Abnormal electrocardiogram [ECG] [EKG]; R10.9 Unspecified abdominal pain; W19.XXXA Unspecified fall, initial encounter; N39.0 Urinary tract infection, site not specified; Y93.9 Activity, unspecified; Y92.099 Unspecified place in other non-institutional residence as the place of occurrence of the external cause; Y99.8 Other external cause status; Z79.899 Other long term (current) drug therapy
CPT/HCPCS: 12002; 36415; 70450; 71260; 72125; 74177; 80053; 81001; 83735; 84484; 85025; 87086; 87088; 87186; 93005; 99284; 99285

== ENCOUNTER → 2024-12-29 12:13 | Outpatient (BNV) | payer MEDICARE, SELFPAY | PROVIDERS: Emergency Provider Emergency Medicine; PCP Student in an Organized Health Care Education/Training Program; Visit Provider Internal Medicine Cardiovascular Disease | DX: I49.1 Atrial premature depolarization (principal); R94.31 Abnormal electrocardiogram [ECG] [EKG] | CPT/HCPCS: 93010 ==

== ENCOUNTER → 2024-12-29 12:13 | Outpatient (BNV) | payer MEDICARE, SELFPAY | PROVIDERS: Emergency Provider Emergency Medicine; PCP Student in an Organized Health Care Education/Training Program; Visit Provider Radiology Diagnostic Radiology | DX: R10.9 Unspecified abdominal pain (principal); N32.89 Other specified disorders of bladder; S22.31XA Fracture of one rib, right side, initial encounter for closed fracture; J90 Pleural effusion, not elsewhere classified; M54.2 Cervicalgia; R41.82 Altered mental status, unspecified; G31.9 Degenerative disease of nervous system, unspecified; W19.XXXA Unspecified fall, initial encounter | CPT/HCPCS: 70450; 71260; 72125; 74177 ==

== ENCOUNTER 2025-01-02 07:53 | Inpatient (IN) | payer MEDICARE, SELFPAY ==
[2025-01-02] VITALS (8 sets, daily range): BP systolic 142–204; BP diastolic 73–111; PULSE 80–103; RESP 15–18; TEMP 36.6; O2SAT 94–98; BMI 15.2
--- NOTE | ~2025-01-02 | CT_ITS ---
EXAMINATION: CT HEAD WITHOUT CONTRAST CLINICAL INFORMATION: recent head strike, AMS COMPARISON: December 29, 2024 TECHNIQUE: Contiguous axial imaging was performed from the skull base to vertex without intravenous administration of contrast. This CT examination was performed using dose optimization techniques as appropriate, variously including the following: *Automated exposure control *Adjustment of mA and/or kV according to patient size (this includes techniques or standardized protocols for targeted exams where dose is matched to indication/reason for exam; i.e. extremities or head) *Use of iterative reconstruction technique DLP: 1186 mGy-cm FINDINGS: Skin gail in the superior left parietal soft tissue scalp. No acute cortical disruption in the bony calvarium. The skull base is intact. No acute intracranial hemorrhage, mass effect, midline shift, hydrocephalus or herniation. Prominence of the extra-axial CSF spaces cerebral sulci and ventricles. Morrison-white matter differentiation is normal. Bilateral multifocal patchy deep periventricular white matter hypodensities involving centrum semiovale and beltran radiata. Ossifications in the V4 segments of the vertebral arteries and the cavernous supracavernous segments both ICA. No hematoma in the intraconal or the extraconal compartments of the orbits. No air-fluid levels in the included paranasal sinuses. Tympanic cavities and mastoid cells are aerated. Degenerative changes in the right and to a lesser extent left temporomandibular joints.. CT/CT head/brain wo IV con IMPRESSION: No acute fracture, bony calvarium. No acute intracranial hemorrhage. Small vessel occlusive disease. Global cerebral atrophy. Atherosclerosis disease, intracranial. Electronically signed by: Bret Cornejo MD 01/02/2025 11:30 AM [facility]
--- NOTE | ~2025-01-02 | XR_ITS ---
EXAMINATION: XR CHEST CLINICAL INFORMATION: weakness, AMS COMPARISON: None available. TECHNIQUE: Frontal view of the chest was obtained. FINDINGS: The lungs are expanded and clear. The heart size and pulmonary vascularity is normal. There is moderate dextroscoliosis of dorsal lumbar spine. No aggressive lytic or sclerotic process seen. Mild degenerative disc changes bilateral shoulder joints. XR/XR chest 1V IMPRESSION: Unremarkable chest examination. Electronically signed by: Horacio Williamson MD 01/02/2025 09:16 AM [facility]
--- NOTE | 2025-01-02 08:26 | ED_ITS ---
HPI - General Adult General Chief complaint: Weakness Stated complaint: AMS,FALL/MONDAY W/STAPLE TO SCALP PER EMS Time Seen by Provider: 01/02/25 08:26 Source: patient, family (patient's son-in-law) and EMS Mode of arrival: EMS Limitations: no limitations History of Present Illness ED Provider: Sirisha Costello PA-C HPI narrative: Patient is an 84 year old assigned female at with a history of parkinsons, HTN, chronic dizziness, rectal prolapse, and recent UTI diagnosis after a fall requiring scalp gail on 12/29/2024 presenting to the emergency department today with persistent weakness and inability to ambulate. Patient states that she was here a few days ago after a fall, had gail placed in her head, and was found to have a UTI so she was started on an antibiotic. Patient's son-in-law states that she has her pills set out for her so she has been taking her Cefuroxime as prescribed. Patient states that she has been feeling weak and struggling to ambulate while home. Patient denies any dizziness, lightheadedness, abdominal pain, nausea, vomiting, fever, chills, blurry vision, double vision, loss of vision, chest pain, difficulty breathing, shortness of breath, back pain, night sweats, pain with urination, increased urinary frequency, increased urinary urgency, blood in her urine or stool, syncope or a near syncopal episode, bowel incontinence, bladder incontinence, or any other complaints at this time. Relieving factors: none Exacerbating factors: none Associated symptoms: weakness Treatments prior to arrival: other (Cefuroxime for UTI and [place] for previous head laceration) Related Data Home Medications ?Medication ?Instructions ?Recorded ?Confirmed aspirin 81 mg tablet,delayed 81 mg PO DAILY@2100 07/17/24 12/05/24 release (Adult Low Dose Aspirin) carbidopa ER 25 mg-levodopa 100 mg 2 tab PO BEDTIME 07/17/24 12/05/24 tablet,extended release gabapentin 100 mg capsule 100 mg PO BEDTIME 07/17/24 12/05/24 levothyroxine 100 mcg tablet 100 mcg PO DAILY@0600 07/17/24 12/05/24 medroxyprogesterone 10 mg tablet 10 mg PO DAILY 07/17/24 12/05/24 carbidopa 25 mg-levodopa 100 mg 2 tab PO QID 12/05/24 12/05/24 tablet psyllium husk 0.52 gram capsule 2.08 g PO BID 12/05/24 12/05/24 sodium chloride 1,000 mg soluble 1,000 mg PO DAILY 12/05/24 12/05/24 tablet Previous Rx's ?Medication ?Instructions ?Recorded cefuroxime axetil 500 mg tablet 500 mg PO BID #20 tabs 12/08/24 cefuroxime axetil 250 mg tablet 250 mg PO BID 7 days #14 tabs 12/29/24 Allergies Allergy/AdvReac Type Severity Reaction Status Date / Time ciprofloxacin [From Cipro] Allergy Severe unknown Verified 01/02/25 08:19 Sulfa (Sulfonamide Allergy Severe unknown Verified 01/02/25 08:19 Antibiotics) Review of Systems 2 Constitutional: Constitutional: Reports no additional constitutional complaints, Denies chills, Denies fever(s), Denies night sweats and Reports weakness Eyes: Eyes: Reports no additional eye complaints, Denies blurry vision, Denies change in vision, Denies diplopia, Denies eye discharge, Denies loss of vision and Denies eye pain ENT: Denies dizziness Cardiovascular: Cardiovascular: Reports no additional cardiovascular complaints, Denies chest pain, Denies lightheadedness, Denies Loss of Consciousness and Denies dyspnea Respiratory: Respiratory: Reports no additional respiratory complaints and Denies dyspnea Gastrointestinal: Gastrointestinal: Reports no additional gastrointestinal complaints, Denies abdominal pain, Denies melena, Denies hematochezia, Denies change in bowel habits and Denies change in stool character Genitourinary: Genitourinary: Denies hematuria, Denies urinary frequency, Denies dysuria, Denies urinary incontinence, Denies urinary hesitancy and Denies urinary urgency Musculoskeletal: Musculoskeletal: Reports no additional musculoskeletal complaints, Denies numbness and Denies tingling Neurologic: Denies dizziness, Denies loss of vision, Denies numbness, Denies tingling and Reports weakness Psychiatric: Psychiatric: Reports no additional psychiatric complaints Endocrine: Endocrine: Reports no additional endocrine complaints Hematologic/Lymphatic: Hematologic/Lymphatic: Reports no additional hematologic/lymphatic complaints Allergic/Immunologic: Allergic/Immunologic: Reports no additional allergic/immunologic complaints PMFSH Past Medical History Attestation statement: The following information was validated with the patient. (all information validated with the patient's son-in-law) Source: old records reviewed, obtained from family (patient's son-in-law provided additional history and confirmed the history provided by the patient. ) and nursing notes reviewed Medical History Fall Rectal prolapse Parkinsons disease Surgical History No pertinent past surgical history Social History Social History Household Members: None Housing: Apartment Do you presently have visiting nurse or other home services: Yes Alcohol intake: never Patient Tobacco Use Status: Never used Tobacco Smoked in Last 30 Days: No Use of substances other than those prescribed or required for medical reasons: No Advance Directives: Yes Advance Directives on File: Yes Advance Directives Date on File: 12/11/21 Do you have a plan to hurt others: No Plan service: No Physical Exam ED Vital Signs: Vital Signs - 24 hr 01/02/25 08:18 01/02/25 11:46 Temperature 97.8 F 97.8 F Pulse Rate 90 99 Respiratory Rate 16 18 Blood Pressure 184/100 H 190/111 H Pulse Oximetry 97 98 Oxygen Delivery Method Room Air BMI result Body Mass Index 15.2 Const General: cooperative, no acute distress, alert and awake Nutritional Appearance: well nourished Orientation/consciousness: patient oriented x3 Limitations: no limitations HENMT Other: 2 gail present in a well approximated wound of the left posterior scalp Ears: hearing grossly normal bilaterally and external ears normal General nose exam: Normal external nose present, no nasal discharge noted and no epistaxis Face and sinus: Yes normal facial exam, No abrasion and No laceration Mouth: Normal oral and palatal mucosa present, no drooling and no muffled voice Eyes General: appearance normal, both eyes and all related structures Periorbital: periorbital findings normal Eyelids: Yes eyelids normal Conjunctivae: conjunctivae normal Pupils: Equal, round and reactive pupils present EOM: EOMs intact bilaterally Neck Neck: Yes normal visual inspection, Yes full ROM and Yes no lymphadenopathy Chest Chest palpation & inspection: normal inspection of the chest Resp Effort & Inspection: normal respiratory effort and able to speak in complete sentences GI Inspection: Yes normal to inspection Neuro General: patient oriented x3, moves all extremities and CN's II-XI intact bilaterally Cranial nerves: Yes Equal, round and reactive pupils present Cognition (Neuro): normal cognition Extrem General: Yes normal to inspection, Yes full ROM and Yes capillary refill normal Psych Appearance: grossly normal Mental Status: mental status grossly normal Affect: normal affect Attitude: cooperative Thought process: Normal thought process present Thought content: Normal thought content present Insight: Good insight present (Psych) Medications Administered Discontinued Medications Generic Name Dose Route Start Last Admin Trade Name Samara PRN Reason Stop Dose Admin Ertapenem 1 gm 01/02/25 11:24 01/02/25 12:00 Ertapenem Sodium 1 Gm Vial IVPUSH 01/02/25 11:25 1 gm ONCE ONE Administration Medical Decision Making Medical Decision Making MDM Narrative: Patient is an 84 year old assigned female at with a history of parkinsons, HTN, chronic dizziness, rectal prolapse, and recent UTI diagnosis after a fall requiring scalp gail on 12/29/2024 presenting to the emergency department today with persistent weakness and inability to ambulate. Patient's physical exam was as noted in the physical exam portion of this note. Patient's blood work was unremarkable. Patient's urine from today was consistent with the urine on 12/29/2024 showing UTI. I reviewed the patient's urine culture from 12/29 which was positive for Klebsiella Oxytoca with ESBL. She was prescribed cefuroxime on 12/29 however, the susceptibility report and current UA findings suggest this may not be the best treatment option. Patient given IV Entrapenem. Patient's clinical presentation is not consistent with sepsis (@1200). Patient's EKG was unremarkable. Patient's head CT showed no acute process. I spoke to the hospitalist team who agreed to admission for failed outpatient UTI treatment, weakness, and change from baseline ambulation. I explained my physical exam findings as well as all test results to the patient and the patient's son-in-law. I answered all questions asked by the patient and the patient's son-in-law. Patient and the patient's son-in-law verbalized agreement and understanding with this treatment plan and admission. Differential Diagnosis Differential Diagnoses: The differential diagnosis associated with the presentation includes Failure to thrive ESBL UTI Weakness Change in ambulation Admission/Observation Consideration of admission/observation: Escalation of care including admission/observation considered Patient admitted as noted in the MDM Rationale portion of this note. Consult Healthcare Provider Management of the patient was discussed with: Hospitalist (agreed to admission as noted in the MDM Rationale portion of this note. ) Lab Data [facility] Lab Attestation statement: I reviewed the patient's lab results. My interpretation of these results are in the MDM Rationale portion of this note. 01/02/25 10:26 01/02/25 10:26 Labs: Lab Results 01/02/25 01/02/25 01/02/25 Range/Units 09:55 10:25 10:26 WBC 6.5 (4.8-10.8) X10*3/uL RBC 3.78 L (4.20-5.50) X10*6/uL Hgb 12.1 (12.0-16.0) g/dl Hct 36.5 L (37.0-47.0) % MCV 96.6 (80.0-98.0) fL MCH 32.0 (27.0-33.0) pg MCHC 33.2 (31.0-35.0) g/dl RDW 13.1 (11.0-16.0) % Plt Count 304 (160-400) X10*3/uL MPV 9.7 (9.4-12.3) fL Immature Gran % (Auto) 0.3 (0.0-0.4) % Neut % (Auto) 79.4 H (45-73) % Lymph % (Auto) 11.9 L (20-40) % Moore % (Auto) 7.0 (2-11) % Eos % (Auto) 0.6 (0-4) % Baso % (Auto) 0.8 (0-2) % Lymph # (Auto) 0.8 L (1.2-4.9) X10*3/uL Moore # (Auto) 0.5 (0.1-1.2) X10*3/uL Eos # (Auto) 0.0 (0.0-0.4) X10*3/uL Baso # (Auto) 0.1 (0.0-0.2) X10*3/uL Abs Immat Gran (auto) 0.02 (0.00-0.03) X10*3/uL Absolute Neuts (auto) 5.2 (2.0-8.3) x10*3/uL Absolute Nucleated RBC 0.000 (0.0-0.012) X10*3/uL Nucleated RBC % (auto) 0.0 (0.0-0.2) /100WBC PT 11.6 (10.9-12.4) SEC INR 1.0 (0.9-1.1) APTT 31.8 (26.0-36.8) SEC Sodium 137 (135-145) mmol/L Potassium 3.5 (3.3-5.1) mmol/L Chloride 98 (96-108) mmol/L Carbon Dioxide 29 (22-29) mmol/L Anion Gap 14 (12-20) BUN 14 (9-16) mg/dL Creatinine 0.68 (0.5-1.4) mg/dL Estim Creat Clear Calc 40.8 Estimated GFR > 60 Random Glucose 89 (60-115) mg/dL Lactic Acid (0.5-2.0) mmol/L Calcium 9.0 (8.4-10.2) mg/dL Magnesium 1.9 (1.6-2.6) mg/dL Total Bilirubin 0.6 (0.0-1.0) mg/dL AST 23 (5-31) U/L ALT 9 (0-31) U/L Alkaline Phosphatase 77 (39-117) U/L Ammonia 30 (13-55) umol/L Troponin I High Sens 11.7 (<3.5-17.0) ng/L Total Protein 7.1 (6.5-8.0) g/dL Albumin 3.7 (3.5-5.0) g/dL Urine Color Yellow Urine Appearance Cloudy Urine pH 7.0 (5.0-9.0) Ur Specific [place] 1.015 (1.005-1.025) Urine Protein Trace (Neg-Trace) mg/dL Urine Glucose (UA) Negative (Negative) mg/dL Urine Ketones Trace (Negative) mg/dL Urine Blood Negative (Negative) Urine Nitrite Negative (Negative) Ur Leukocyte Esterase Moderate (2+) H (Negative) Urine RBC 0-2 (0-2) /HPF Urine WBC 21-50 (0-5) /HPF Ur Squamous Epith Cells 0-2 (0-2) /HPF Urine Bacteria 4+ (None Seen) Hyaline Casts 0-2 (0-2) /LPF Influenza Type A (PCR) NEGATIVE (Negative) Influenza Type B (PCR) NEGATIVE (Negative) RSV RNA Qual (PCR) NEGATIVE (Negative) SARS-CoV-2 RNA (RT-PCR) NEGATIVE (Negative) 01/02/25 Range/Units 10:30 WBC (4.8-10.8) X10*3/uL RBC (4.20-5.50) X10*6/uL Hgb (12.0-16.0) g/dl Hct (37.0-47.0) % MCV (80.0-98.0) fL MCH (27.0-33.0) pg MCHC (31.0-35.0) g/dl RDW (11.0-16.0) % Plt Count (160-400) X10*3/uL MPV (9.4-12.3) fL Immature Gran % (Auto) (0.0-0.4) % Neut % (Auto) (45-73) % Lymph % (Auto) (20-40) % Moore % (Auto) (2-11) % Eos % (Auto) (0-4) % Baso % (Auto) (0-2) % Lymph # (Auto) (1.2-4.9) X10*3/uL Moore # (Auto) (0.1-1.2) X10*3/uL Eos # (Auto) (0.0-0.4) X10*3/uL Baso # (Auto) (0.0-0.2) X10*3/uL Abs Immat Gran (auto) (0.00-0.03) X10*3/uL Absolute Neuts (auto) (2.0-8.3) x10*3/uL Absolute Nucleated RBC (0.0-0.012) X10*3/uL Nucleated RBC % (auto) (0.0-0.2) /100WBC PT (10.9-12.4) SEC INR (0.9-1.1) APTT (26.0-36.8) SEC Sodium (135-145) mmol/L Potassium (3.3-5.1) mmol/L Chloride (96-108) mmol/L Carbon Dioxide (22-29) mmol/L Anion Gap (12-20) BUN (9-16) mg/dL Creatinine (0.5-1.4) mg/dL Estim Creat Clear Calc Estimated GFR Random Glucose (60-115) mg/dL Lactic Acid 1.0 (0.5-2.0) mmol/L Calcium (8.4-10.2) mg/dL Magnesium (1.6-2.6) mg/dL Total Bilirubin (0.0-1.0) mg/dL AST (5-31) U/L ALT (0-31) U/L Alkaline Phosphatase (39-117) U/L Ammonia (13-55) umol/L Troponin I High Sens (<3.5-17.0) ng/L Total Protein (6.5-8.0) g/dL Albumin (3.5-5.0) g/dL Urine Color Urine Appearance Urine pH (5.0-9.0) Ur Specific [place] (1.005-1.025) Urine Protein (Neg-Trace) mg/dL Urine Glucose (UA) (Negative) mg/dL Urine Ketones (Negative) mg/dL Urine Blood (Negative) Urine Nitrite (Negative) Ur Leukocyte Esterase (Negative) Urine RBC (0-2) /HPF Urine WBC (0-5) /HPF Ur Squamous Epith Cells (0-2) /HPF Urine Bacteria (None Seen) Hyaline Casts (0-2) /LPF Influenza Type A (PCR) (Negative) Influenza Type B (PCR) (Negative) RSV RNA Qual (PCR) (Negative) SARS-CoV-2 RNA (RT-PCR) (Negative) Independent Interpretation I performed an independent interpretation of an: EKG and CT Scan Interpretation: My interpretation is in agreement with the radiologist's impression of these imaging studies. L Report Number: [id number]: Total DLP = 1186.00 mGy-cm EXAMINATION: CT HEAD WITHOUT CONTRAST CLINICAL INFORMATION: recent head strike, AMS COMPARISON: December 29, 2024 TECHNIQUE: Contiguous axial imaging was performed from the skull base to vertex without intravenous administration of contrast. This CT examination was performed using dose optimization techniques as appropriate, variously including the following: *Automated exposure control *Adjustment of mA and/or kV according to patient size (this includes techniques or standardized protocols for targeted exams where dose is matched to indication/reason for exam; i.e. extremities or head) *Use of iterative reconstruction technique DLP: 1186 mGy-cm FINDINGS: Skin gail in the superior left parietal soft tissue scalp. No acute cortical disruption in the bony calvarium. The skull base is intact. No acute intracranial hemorrhage, mass effect, midline shift, hydrocephalus or herniation. Prominence of the extra-axial CSF spaces cerebral sulci and ventricles. Morrison-white matter differentiation is normal. Bilateral multifocal patchy deep periventricular white matter hypodensities involving centrum semiovale and beltran radiata. Ossifications in the V4 segments of the vertebral arteries and the cavernous supracavernous segments both ICA. No hematoma in the intraconal or the extraconal compartments of the orbits. No air-fluid levels in the included paranasal sinuses. Tympanic cavities and mastoid cells are aerated. Degenerative changes in the right and to a lesser extent left temporomandibular joints.. CT/CT head/brain wo IV con IMPRESSION: No acute fracture, bony calvarium. No acute intracranial hemorrhage. Small vessel occlusive disease. Global cerebral atrophy. Atherosclerosis disease, intracranial. Electronically signed by: Bret Cornejo MD 01/02/2025 11:30 AM EST RP Dictated By: Bret Jarquin MD Signed By: Electronically signed by Bret Gayle MD 01/02/25 1130 EXAMINATION: XR CHEST CLINICAL INFORMATION: weakness, AMS COMPARISON: None available. TECHNIQUE: Frontal view of the chest was obtained. FINDINGS: The lungs are expanded and clear. The heart size and pulmonary vascularity is normal. There is moderate dextroscoliosis of dorsal lumbar spine. No aggressive lytic or sclerotic process seen. Mild degenerative disc changes bilateral shoulder joints. XR/XR chest 1V IMPRESSION: Unremarkable chest examination. Electronically signed by: Horacio Williamson MD 01/02/2025 09:16 AM EST RP Dictated By: Horacio Williamson MD Signed By: Electronically signed by Horacio Williamson MD 01/02/25 0916 I independently interpreted this EKG and am in agreement with the below findings: Vent. Rate: 95 BPM Atrial Rate: 95 BPM P-R Int: 162 ms QRS Dur: 90 ms QT Int: 368 ms P-R-T Axes: 65 29 35 degrees QTcB Int: 462 ms Sinus rhythm with occasional Premature ventricular complexes and Premature atrial complexes Minimal voltage criteria for LVH, may be normal variant ([place] product) Anteroseptal infarct (cited on or before 05-Dec-2024) When compared with ECG of 29-Dec-2024 12:37, Premature ventricular complexes are now Present Electronically Signed By: CAMILO GOMES MD Dictated By: Camilo Gomes MD Signed By: Electronically signed by Camilo Gomes MD 01/02/25 0931 Radiology Impression Discussion of test interpretation with radiology: I have reviewed the radiologist's reading. Independent Historian Clinical information obtained from an independent historian. History obtained from or confirmed by: EMS (EMS provided additional history and confirmed the history provided by the patient. ) and Other (patient's son-in-law provided additional history and confirmed the history provided by the patient. ) Critical Care Time Critical Care Time Critical Care Time: Yes Total Critical Care Time: 36 Attestation: I spent 36 minutes of Critical Care Time with this patient. This does not include time spent on separately reported billable procedures. Discharge Plan Discharge Clinical Impression: Urinary tract infection due to ESBL Klebsiella, Weakness Patient Disposition: Admitted As Inpatient Prescriptions: No Action carbidopa-levodopa 25-100 mg tablet 2 tab PO QID Rx Instructions: @0500,0900,1300,1700 psyllium husk 0.52 gram Capsule 2.08 g PO BID sodium chloride 1,000 mg Tablet,Soluble 1,000 mg PO DAILY cefuroxime axetil 500 mg tablet 500 mg PO BID Qty: 20 0RF cefuroxime axetil 250 mg tablet 250 mg PO BID 7 Days Qty: 14 0RF carbidopa-levodopa 25-100 mg tablet extended release 2 tab PO BEDTIME medroxyprogesterone 10 mg tablet 10 mg PO DAILY levothyroxine 100 mcg tablet 100 mcg PO DAILY@0600 gabapentin 100 mg capsule 100 mg PO BEDTIME aspirin [Adult Low Dose Aspirin] 81 mg tablet,delayed release (DR/EC) 81 mg PO DAILY@2100 Print Language: Japanese
--- NOTE | 2025-01-02 08:44 | ECG_ITS ---
Test Reason : CHEST PAIN Blood Pressure : */* mmHG Vent. Rate : 95 BPM Atrial Rate : 95 BPM P-R Int : 162 ms QRS Dur : 90 ms QT Int : 368 ms P-R-T Axes : 65 29 35 degrees QTcB Int : 462 ms Sinus rhythm with occasional Premature ventricular complexes and Premature atrial complexes Minimal voltage criteria for LVH, may be normal variant ( [place] product ) Anteroseptal infarct (cited on or before 05-Dec-2024) Abnormal ECG When compared with ECG of 29-Dec-2024 12:37, Premature ventricular complexes are now Present Referred By: Sirisha Costello Electronically Signed By: RANDELL FRAIRE MD
--- OUTSIDE RECORDS SUMMARY | 2025-01-02 09:41 | XMS_ITS | Encounter Summary ---
Author Organization [facility] Address [address] [place] [address] Care Team Providers Care Souvenir And Novelty Maker Name Role Phone Carley Luque MD Primary Care Provider [phone] Reason for Visit * Reason Comments Parkinson's Disease Encounter Details Date Type Department Care Team (Late st Contact Info) Description 12/20/2024 11:50 AM EST Office Visit [facility] [address] [place] [phone] Jones Brewer, SHELBY [address] [facility] [address] [place] [address] Parkinson's disease without dyskinesia or fluctuating manifestations [...] Brewer APRN - 12/20/2024 11:50 AM EST [facility] [address] [place] [address], [address] [place], [address] Name: Christen Branham Date of : 1940 [...] PD in 2019 by a neurologist in [place], [place] (Dr. Nuñez). From initial consult on [...] and has had evaluations by urologists in [place] in the past and was found to [...] Needs: No Transportation Needs (12/17/2024) Received from [facility] OASIS A1250: Transportation Lack of Transportation (Medical): No Lack of Transportation (Non-Medical): No Patient Unable or Declines to Respond: No Physical Activity: Not on file Stress: Not on file Social Connections: Not on file Housing Stability: Medium Risk (07/17/2022) Received from [facility], [facility] Residential Stability What is your housing [...] Description 10/10/2025 11:50 AM EST Office Visit [facility] Neurology [address] [phone] Jones Brewer APRN [address] [id number] documented as of this encounter Visit Diagnoses Diagnosis Parkinson's disease without dyskinesia or fluctuating manifestations (HCC)- Primary documented in this encounter Care Teams Souvenir And Novelty Maker Relationship Specialty Start Date End Date Carley Luque MD [address] [place] [phone] PCP - General Family Medicine 08/23/22 documented as of this encounter
--- OUTSIDE RECORDS SUMMARY | 2025-01-02 09:41 | XMS_ITS | Encounter Summary ---
Author Organization [facility] Address [address] [place] [address] Care Team Providers Care Property Officer Name Role Phone Carley Luque MD Primary Care Provider [phone] Reason for Visit * Reason Comments Medication Refill Encounter Details Date Type Department Care Team (Late Contact Info) Description 01/11/2023 Refill [facility] Neurology [address] [phone] Jones Brewer, SHELBY [address] [place] [address] Parkinson's disease (HCC); Constipation, unspecified constipation [...] Description 10/10/2025 11:50 AM EST Office Visit [facility] Neurology [address] [place] [phone] Jones Brewer, MOTORCYCLE RIDING INSTRUCTOR [address] [place] [address] documented as of this encounter Visit Diagnoses Diagnosis Parkinson's disease (HCC) Paralysis agitans Constipation, unspecified constipation type documented in this encounter Care Teams Property Officer Relationship Specialty Start Date End Date Carley Luque MD [address] [place] [address] PCP - General Family Medicine 08/23/22 documented as of this encounter
--- OUTSIDE RECORDS SUMMARY | 2025-01-02 09:41 | XMS_ITS | Data Portability ---
Author Organization [facility], Main Office Address [address] [place] [address] Care Team Providers Care Air Valve Mechanic Name Role Phone WILLOW GRACE AT [employer] OTHER AYANNA MOSLEY Primary Care Provider Assessment [...] Address Organization Details Recorded Time Recurrent falls 560957519 Active 2024 REAL WALL NP [address] , [address], [place], [address], [facility] 5 14:22:39 Urinary tract infectious disease 69165415 Active 2024 REAL WALL NP [address] , [address], [place], [address], [facility] [email or web address] [facility] 5 14:22:44 Emphysemat ous cystitis 92585734 Active 2024 REAL WALL NP [address] , [address], [place], [address], [facility] [email or web address] [facility] 5 14:23:10 Parkinson' s disease 13217756 Active 2024 REAL WALL NP [address], [place], [address], [facility] [employer] 5 14:23:19 Rectal prolapse 33896960 Active 2024 REAL WALL NP [address], [place], [address], [facility] 5 14:23:28 Spinal stenosis of lumbar region 69108022 Active 2024 s/p surgery REAL WALL NP [address], [address], [place], [address], [facility] 5 14:23:41 Hyperlipid emia 40369107 Active 2024 REAL WALL NP [address], [address], [place], [address], [facility] 5 14:23:47 Hypertensi ve disorder 84037968 Active 2024 REAL WALL NP [address], [place], [address], [facility] 5 14:23:51 Hypothyroi dism 45995649 Active 2024 REAL WALL NP [address], [address], [place], [address], [facility] 5 14:24:02 Depressive disorder 40541359 Active 2024 REAL WALL NP [address], [address], [place], [address], [facility] 5 14:24:10 Peripheral neuropathi c pain 518645836 Active 2024 REAL WALL NP [address], [place], [address], [facility] 5 14:24:25 Abnormal uterine bleeding 711797098299 00 Active 2024 REAL WALL NP [address], [address], [place], [address], [facility] 5 14:24:41 Hyponatrem ia 38234602 Active 2024 REAL WALL NP [address], [place], [address], [facility] 5 14:42:44 Chronic right-side d heart failure 47768973 Active 2024 REAL WALL NP [address] [facility], [address], [place], [address], [employer] [facility] 5 14:44:20 Coronary arterioscl erosis 79354593 Active 2024 REAL WALL NP [address] [facility], [address], [place], [address], [facility] 5 14:53:25 Problem Notes None recorded. Medical Equipment None Reported. Allergies Allergen ID Allergen Name Allergen Category Reaction Reaction Severity Criticality Documentation Date Start Date Code Code System Note Provider Name and Address Organization Details Recorded Time 57903 Cipro medicatio n Not available Not available Not available 12/10/2024 97659 3 RxNorm Not Available Not Available Not Available 97131 Substance with sulfonami de structure and antibacte rial mechanism of action (substanc e) medicatio n Not available Not available Not available 12/10/2024 63003 8003 SNOMED Not Available Not Available Not [...] 97 % 117 mm[Hg] 52 mm[Hg] REAL WALL NP [address] [facility], [facility] [[email or web address] [address], [place], [address], [facility] 5 14:33:05 Date Recorded Heart rate Respiratory rate Body temperature Oxygen saturation Oxygen saturation in Arterial blood by Pulse oximetry Systolic blood pressure Diastolic blood pressure Provider Name and Address Organization Details Last Updated DateTime 5 83 /min 18 /min 97.7 [degF] 97 % 97 % 153 mm[Hg] 100 mm[Hg] REAL WALL NP [address] [facility], [address], [place], [address], [facility] 5 09:50:39 Social History Question Answer Notes LastModified by Organizat ion Details LastModified Time Tobacco Smoking Status Never Smoker REAL WALL NP [address] [facility], [address], [place], [address], [facility] 12/10/2024 14:00:55 What Is Your Level Of Alcohol Consumption? None Information not available 12/10/2024 What Is Your Code Status? DNR/DNI DNR, DNI, DNH, No Dialysis, No G Tube [email or web address] Information not available 12/10/2024 Where Do You Live? Apartment ILF Information not available 12/10/2024 Do You Have A Medical Power Of Mortgage Field Inspector? Yes Has HCP [email or web address] Information not available 12/10/2024 What Was The Date Of Your Most Recent Tobacco Screening? 12/10/2024 Information not available 12/10/2024 Do You Have An Out Of Hospital DNR? Yes [email or web address] Information not available 12/10/2024 Do You Use Any Illicit Or Recreational Drugs? No Information not available 12/10/2024 Has Tobacco Cessation Counseling Been Provided? No [email or web address] Information not available 12/10/2024 Do You Or Have You Ever Used Any Other Forms Of Tobacco Or Nicotine? No [email or web address] Information not available 12/10/2024 Sex: Unknown Functional Status None recorded. Mental Status None recorded. Family History Relationship Description Onset Age of this Age Resolved Age Notes LastModified by Organization Details LastModified Time Father Dementia Not availabl e 12/10/2024 14:20:17 Brother Dementia [email or web address] Not availab le 12/10/2024 14:20:17 Notes:N/C Medical History No medical history recorded. Gynecological HistoryNo gynecological history recorded. Obstetrics History GPAL:G 0 P 0 0 0 0 Immunizations Vaccine Type Date Status Note Provider Nam e and Address Organization Details Recorded Time Pneumococcal conjugate PCV 13 4 completed Yvonne Huggins [facility] 12/10/2024 16:32:17 influenza, unspecified formulation 3 completed Yvonne Huggins [facility] 12/10/2024 16:32:41 SARS-COV-2 (COVID-19) vaccine, UNSPECIFIED 2 completed Yvonne Huggins [facility] 12/10/2024 16:33:32 SARS-COV-2 (COVID-19) vaccine, UNSPECIFIED 3 completed Yvonne Huggins [facility] 12/10/2024 16:33:41 SARS-COV-2 (COVID-19) vaccine, UNSPECIFIED 3 [facility] 12/10[facility]24 16:33:48 Past Encounters Encounter ID Performer Location Encounter Start Date Encounter Closed Date Diagnosis/Indication Diagnosis SNOMED-CT Code Diagnosis ICD10 Code Diagnosis Note [id number] REAL WALL NP [place] [address] [place] [address] 12/10/2024 08:58:52 12/11/2024 14:30:10 Emphysematous cystitis 29361178 N30.80 Followed by UrologyCx. grew E. ColiStarte d on ceftriaxon e and flagyl, then just ceftriaxon eChanged to ceftin 500 mg bid x10 days upon dischargeA dd probiotic x 10 daysFollow up with Urology for cystoMonit or VS, labs sx.Update Urology with concernsCB C, BMP 12/17 Recurrent falls 26882791 2 R29.6 Unsteady gait due to PD, also deconditio niru due to acute illness and hospitaliz ationPT OT eval and tx.Goal is to return home, possibly as soon as next week Parkinson's disease 4904 9000 G20.A1 Continue home meds:jarocho et 25/100 2 tabs 5xdPer son has Neuro follow up next week.Monit or neuro status Hypertensive disorder 38 628979 I10 Not on any meds at this timeMonito r VS Hyperlipidemia 87539157 E78.5 Not on meds at this time Hypothyroidism 96519313 E03.9 Continue levothyrox ine 100 mcg qdTSH prn Rectal prolapse 94271758 K62.3 Per son, takes 2 fiber tabs bid at home as well as prn miralax to help keep bowels moving.Mon itor Peripheral neuropathic pain 301898074 M79.2 Continue gabapentin 100 mg q hsMonitor Abnormal u terine bleeding 9067636117 9100 N93.9 Continue medroxypro gesterone 10 mg qd Hyponatremia 40278884 E8 7.1 Na 132Already on NaCl 1000 mg qdBMP 12/17 to trend Chronic ri ght-sided heart failure 80079960 I50.810 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 Monitor Coronary arteriosclerosis 38717173 I25.10 s/p stent - on ASA 81 mg qd Anemia 547584078 D64.9 Hgb 10.5 -> 9.6Monitor for active bleedingCB C 12/17 to trend [id number] REAL WALL, IRON [place] [address] [place] [address] 12/13/2024 09:26:15 12/16/2024 12:22:05 Emphysematous cystitis 22249296 N30.80 Followed by Urology in hosp.Cx. grew [...] concernsFo llow labs as outpt. Recurrent falls 62256210 2 R29.6 Unsteady gait due to PD, also deconditio niru due to acute illness and hospitaliz ationPT OT eval and tx.Goal is to return home, possibly as soon as Monday Parkinson's disease 4904 9000 G20.A1 Continue home meds:jarocho et 25/100 2 tabs 5xdPer son has Neuro follow up next week.Monit or neuro status here. Rectal prolapse 74552797 K62.3 Per son, takes 2 fiber tabs bid at home as well as prn miralax to help keep bowels moving. CUrrently in place here.Monit or Hyponatremia 60322138 E8 7.1 Na 132Already on NaCl 1000 mg qdTrend BMP as outpt. Hypothyroidism 06828923 E03.9 Continue levothyrox ine 100 mcg qdTSH prn Peripheral neuropathic pain 630879877 M79.2 Continue gabapentin 100 mg q hsMonitor Abnormal u terine bleeding 2500365825 9100 N93.9 Continue medroxypro gesterone 10 mg qd Coronary arteriosclerosis 94840649 I25.10 s/p stent - on ASA 81 mg qd Anemia 412056023 D64.9 Hgb 10.5 -> 9.6Monitor for active bleedingCB C as outpt. to trend Hypertensive disorder 38 579247 I10 Not on any meds at this timeBP running on the higher side of nl. 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 Monitor [id number] Luis Antonio Palacio MD [place] [address] [facility] [place] [address] 12/16/2024 10:31:06 12/18/2024 12:04:31 Emphysematous cystitis 01621563 N30.80 Noted to have air in bladderEva l by urology and covered with rocephin and flagyl, now rocephin x 2 week course, to f/u out patient for cystoscopy f/u in place Recurrent falls 52088244 2 R29.6 improved with therapy now cleared for discharge at baseline Parkinson's disease 4904 9000 G20.A1 sinemet 25/100 2 tabs 5xdcoordin ate with neuro with f/u in place 12/20 Rectal prolapse 10195895 K62.3 added to PMH Hyponatremia 14675910 E8 7.1 on salt tabs improvedre peat bmp at f/u with pcp Hypothyroidism 40708284 E03.8 synthroid 100 mcg qdcontinue d Peripheral neuropathic pain 837418807 M79.2 gabapentin 100 mg qhscontinu ed Abnormal u terine bleeding 1055629127 9100 N93.9 carrying dxcontinue medroxypro gesterone 10 mg qd Coronary arteriosclerosis 96194017 I25.10 known hx of s/p stent continued on ASA 81 mg qd Chronic ri ght-sided heart failure 08462448 I50.810 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 Monitor respirator y and fluid status Health Concerns Section Related Observation LastModified by Organization Detai ls LastModified Time None Recorded Concern Status LastModified by Organization Details LastModified Time None Recorded Advance Directives Directive None Recorded Payers Encounter Date Sequence Insurance Name Policy Number Policy [place] Covered Member ID [place] Member ID Guarantor Name 12/10/2024 1 [place] [employer] [employer] Christen Moreno [id number] Christen Moreno 12/10/2024 2 [place] [id number] Christen Moreno [id number] Christen Moreno 12/13/2024 1 [place] Christen Moreno [id number] Christen Moreno 12/13/2024 2 [place] [id number] Christen Moreno [id number] Christen Moreno 12/16/2024 1 [place] Christen Moreno [id number] Christen Moreno 12/16/2024 2 [place] [id number] Christen Moreno [id number] Christen Moreno Notes Date Note Type Note Provider Name and Address Organization Details Recorded Time 025 text/ht ml Christen is seen today for initial intake. She is an 84 yo lady, admitted to [facility] 12[facility] from [facility] for continued care and rehab after a hosp. related to falls and UTI. She presented to [facility] 12/05 after falling at home, resulting on [...] no dialysis, no g tube REAL WALL, YARN TESTER [address] [facility], [address], [place], [address] , [facility] 12/10/2024 15:01:41 025 text/ht ml Christen is seen today for an acute visit. She is an 84 yo lady, admitted to [facility] 12/08/24 from [facility] for continued care and rehab after a hosp. related to falls and UTI.She presented to [facility] 12/05 after falling at home, resulting on [...] no g tube REAL WALL NP [address] [facility], [address], [place], [address] , [facility] 12/13/2024 10:06:59 025 text/ht ml Patient is an 84 [...] and PCP appt being set up by karen Palacio MD [address] [facility], [address], [place], [address] , [facility] 12/16/2024 11:23:39 OBGyn Episode No OBEpisode recorded.
--- OUTSIDE RECORDS SUMMARY | 2025-01-02 09:41 | XMS_ITS | Encounter Summary ---
Author Organization [facility] Address [address] [place] [address] Care Team Providers Care Customer Success Advocate Name Role Phone Carley Luque MD Primary Care Provider [phone] Reason for Visit * Reason Comments FA - ONGENTYS Encounter Details Date Type Department Care Team (Late st Contact Info) Description 12/05/[address] [facility] Neurology [address] [place] [phone] Provider, Kameron, [address] [place] [address] FA - ONGENTYS Social History Tobacco Use [...] 12/05/2024 1:02 PM EST Called patient at [phone], spoke with MANNY. Notified patient of high copay. Patient stated copay is unaffordable. Patient gave verbal consent for Financial Assistance through [employer]ELENDE[employer] Does patient have government funded insurance? (Medicare, Medicaid, , etc) Yes Medication: ONGENTYS 25 MG CAPSULE Best Contact Number/Time of day: [phone] Email: Diagnosis / ICD-10: Parkinson's disease without dyskinesia or fluctuating manifestations (HCC) [G20.A1] DWAIN (Annual Gross Income): $42,000 HH (Household Size): 1 How would the patient like to sign paperwork? Docusign Additional Information: PATIENT WOULD LIKE TO APPLY FOR [employer]. THANK YOU! documented in this encounter Plan of Treatment Upcoming Encounters Date Type Department Care Team (Late st Contact Info) Description 10/10/2025 11:50 AM EST Office Visit [facility] Neurology [address] [place] [phone] Jones Brewer, SHELBY [address] [facility] [address] [place] [address] documented as of this encounter Visit Diagnoses Not on filedocumented in this encounter Care Teams Customer Success Advocate Relationship Specialty Start Date End Date Carley Luque MD [address] [place] [address] PCP - General Family Medicine 08/23/22 documented as of this encounter
--- OUTSIDE RECORDS SUMMARY | 2025-01-02 09:41 | XMS_ITS | Encounter Summary ---
Author Organization [facility] Address [address] [place] [address] Care Team Providers Care [employer] Flatbed Truck Driver Name Role Phone Carley Luque MD Primary Care Provider [phone] Encounter Details Date Type Department Care Team [...] Description 10/10/2025 11:50 AM EST Office Visit [facility] Neurology [address] [place] [address] Jones Brewer, MANAGER PRODUCT MARKETING [address] [facility] [address] [place] [address] documented as of this encounter Visit Diagnoses Not on filedocumented in this encounter Care Teams Regional [employer] Flatbed Truck Driver Relationship Specialty Start Date End Date Carley Luque MD [address] [place] [address] [place] [address] PCP - General Family Medicine 08/23/22 documented as of this encounter
--- OUTSIDE RECORDS SUMMARY | 2025-01-02 09:42 | XMS_ITS | Continuity of Care Document ---
Author Organization [facility], [facility] Address [address] [place] [address] Care Team Providers Care Distribution Specialist Name Role Phone [facility] OTHER AYANNA MOSLEY Primary Care Provider [phone] Assessment No assessment recorded. Plan of Treatment [...] Address Organization Details Recorded Time Recurrent falls 037952065 Active 2024 REAL WALL NP [address] , [address], [place], [address], [facility] 5 14:22:39 Urinary tract infectious disease 17354917 Active 2024 REAL WALL NP [address], [address], [place], [address], [facility] 5 14:22:44 Emphysemat ous cystitis 48762426 Active 2024 REAL WALL NP [address], [address], [place], [address], [facility] 5 14:23:10 Parkinson' s disease 35662525 Active 2024 REAL WALL NP [address], [address], [place], [address], [facility] [employer] [facility] 5 14:23:19 Rectal prolapse 12675621 Active 2024 REAL WALL NP [address], [address], [place], [address], [facility] 5 14:23:28 Spinal stenosis of lumbar region 13268501 Active 2024 s/p surgery REAL WALL NP [address], [address], [place], [address], [facility] 5 14:23:41 Hyperlipid emia 70468584 Active 2024 REAL WALL NP [address], [address], [place], [address], [facility] 5 14:23:47 Hypertensi ve disorder 37862709 Active 2024 REAL WALL NP [address], [address], [place], [address], [facility] 5 14:23:51 Hypothyroi dism 64884643 Active 2024 REAL WALL NP [address], [address], [place], [address], [facility] 5 14:24:02 Depressive disorder 89856519 Active 2024 REAL WALL NP [address], [place], [address], [facility] 5 14:24:10 Peripheral neuropathi c pain 294070640 Active 2024 REAL WALL NP [address] [facility], [address], [place], [address], [facility] 5 14:24:25 Abnormal uterine bleeding 904086631938 00 Active 2024 REAL WALL NP [address], [address], [place], [address], [facility] 5 14:24:41 Hyponatrem ia 66196366 Active 2024 REAL WALL NP [address], [address], [place], [address], [facility] 5 14:42:44 Chronic right-side d heart failure 18060372 Active 2024 REAL WALL NP [address] [facility], [address], [place], [address], [facility] 5 14:44:20 Coronary arterioscl erosis 90517315 Active 2024 REAL WLAL NP [address] [facility], [address], [place], [address], [facility] [employer] [facility] 5 14:53:25 Problem Notes None recorded. Medical Equipment None Reported. Allergies Allergen ID Allergen Name Allergen Category Reaction Reaction Severity Criticality Documentation Date Start Date Code Code System Note Provider Name and Address Organization Details Recorded Time 04411 Cipro medicatio n Not available Not available Not available 12/10/2024 47200 3 RxNorm Not Available Not Available Not Available 53465 Substance with sulfonami de structure and antibacte rial mechanism of action (substanc e) medicatio n Not available Not available Not available 12/10/2024 12248 8003 SNOMED Not Available Not Available Not Available Medications Not known to be on any medication Vitals None Recorded Social History Question Answer Notes LastModified by Organizat ion Details LastModified Time Tobacco Smoking Status Never Smoker REAL WALL NP [address] [facility], [address], [place], [address], [facility] 12/10/2024 14:00:55 What Is Your Level Of Alcohol Consumption? None [email or web address] Information not available 12/10/2024 What Is Your Code Status? DNR/DNI DNR, DNI, DNH, No Dialysis, No G Tube [email or web address] Information not available 12/10/2024 Where Do You Live? Apartment ILF [email or web address] Information not available 12/10/2024 Do You Have A Medical Power Of Rasper Machine Operator? Yes Has HCP Information not available 12/10/2024 What Was The Date Of Your Most Recent Tobacco Screening? 12/10/2024 Information not available 12/10/2024 Do You Have An Out Of Hospital DNR? Yes Information not available 12/10/2024 Do You Use Any Illicit Or Recreational Drugs? No Information not available 12/10/2024 Has Tobacco Cessation Counseling Been Provided? No [email or web address] Information not available 12/10/2024 Do You Or Have You Ever Used Any Other Forms Of Tobacco Or Nicotine? No [email or web address] Information not available 12/10/2024 Sex: Unknown Functional Status None recorded. Mental Status None recorded. Family History Relationship Description Onset Age of this Age Resolved Age Notes LastModified by Organization Details LastModified Time Father Dementia [email or web address] Not availabl e 12/10/2024 14:20:17 Brother Dementia [email or web address] Not availab le 12/10/2024 14:20:17 Notes:N/C Medical History No medical history recorded. Gynecological HistoryNo gynecological history recorded. Obstetrics History GPAL:G 0 P 0 0 0 0 Immunizations Vaccine Type Date Status Note Provider Nam e and Address Organization Details Recorded Time Pneumococcal conjugate PCV 13 4 completed [facility] 12/10/2024 16:32:17 influenza, unspecified formulation 3 completed Yvonne [facility] 12/10/2024 16:32:41 SARS-COV-2 (COVID-19) vaccine, UNSPECIFIED 2 completed [facility] 12/10/2024 16:33:32 SARS-COV-2 (COVID-19) vaccine, UNSPECIFIED 3 completed [facility] 12/10/2024 16:33:41 SARS-COV-2 (COVID-19) vaccine, UNSPECIFIED 3 completed [facility] 12/10/2024 16:33:48 Past Encounters Encounter ID Performer Location Encounter Start Date Encounter Closed Date Diagnosis/Indication Diagnosis SNOMED-CT Code Diagnosis ICD10 Code Diagnosis Note [id number] REAL WALL NP [facility] [address] [place] [address] 12/10/2024 08:58:52 12/11/2024 14:30:10 Emphysematous cystitis 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 grew E. ColiStarte d on ceftriaxon e and flagyl, then just ceftriaxon eChanged to ceftin 500 mg bid x10 days upon dischargeA dd probiotic x 10 daysFollow up with Urology for cystoMonit or VS, labs sx.Update Urology with concernsCB C, BMP 12/17 Recurrent falls 48009448 2 R29.6 Unsteady gait due to PD, also deconditio niru due to acute illness and hospitaliz ationPT OT eval and tx.Goal is to return home, possibly as soon as next week Parkinson's disease 4904 9000 G20.A1 Continue home meds:jarocho et 25/100 2 tabs 5xdPer son has Neuro follow up next week.Monit or neuro status Hypertensive disorder 38 543224 I10 Not on any meds at this timeMonito r VS Hyperlipidemia 90850984 E78.5 Not on meds at this time Hypothyroidism 31932012 E03.9 Continue levothyrox ine 100 mcg qdTSH prn Rectal prolapse 09141890 K62.3 Per son, takes 2 fiber tabs bid at home as well as prn miralax to help keep bowels moving.Mon itor Peripheral neuropathic pain 529917251 M79.2 Continue gabapentin 100 mg q hsMonitor Abnormal u terine bleeding 4753129465 9100 N93.9 Continue medroxypro gesterone 10 mg qd Hyponatremia 91743579 E8 7.1 Na 132Already on NaCl 1000 mg qdBMP 12/17 to trend Chronic ri ght-sided heart failure 00789674 I50.810 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 Monitor Coronary arteriosclerosis 41367130 I25.10 s/p stent - on ASA 81 mg qd Anemia 317347326 D64.9 Hgb 10.5 -> 9.6Monitor for active bleedingCB C 12/17 to trend [id number] REAL WALL NP [place] [address] [place] [address] 12/13/2024 09:26:15 12/16/2024 12:22:05 Emphysematous cystitis 66865529 N30.80 Followed by Urology in hosp.Cx. grew [...] concernsFo llow labs as outpt. Recurrent falls 44949171 2 R29.6 Unsteady gait due to PD, also deconditio niru due to acute illness and hospitaliz ationPT OT eval and tx.Goal is to return home, possibly as soon as Monday Parkinson's disease 4904 9000 G20.A1 Continue home meds:jarocho et 2 tabs 5xdPer son has Neuro follow up next week.Monit or neuro status here. Rectal prolapse 32309008 K62.3 Per son, takes 2 fiber tabs bid at home as well as prn miralax to help keep bowels moving. CUrrently in place here.Monit or Hyponatremia 92974085 E8 7.1 Na 132Already on NaCl 1000 mg qdTrend BMP as outpt. Hypothyroidism 64871090 E03.9 Continue levothyrox ine 100 mcg qdTSH prn Peripheral neuropathic pain 298521966 M79.2 Continue gabapentin 100 mg q hsMonitor Abnormal u terine bleeding 4178036965 9100 N93.9 Continue medroxypro gesterone 10 mg qd Coronary arteriosclerosis 45008854 I25.10 s/p stent - on ASA 81 mg qd Anemia 694563385 D64.9 Hgb 10.5 -> 9.6Monitor for active bleedingCB C as outpt. to trend Hypertensive disorder 38 410519 I10 Not on any meds at this timeBP running on the higher side of nl. 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 Monitor [id number] Luis Antonio Palacio MD [place] [address] [place], [place] [address] 12/16/2024 10:31:06 12/18/2024 12:04:31 Emphysematous cystitis 75052283 N30.80 Noted to have air in bladderEva l by urology and covered with rocephin and flagyl, now rocephin x 2 week course, to f/u out patient for cystoscopy f/u in place Recurrent falls 73562013 2 R29.6 improved with therapy now cleared for discharge at baseline Parkinson's disease 4904 9000 G20.A1 sinemet 25/100 2 tabs 5xdcoordin ate with neuro with f/u in place 12/20 Rectal prolapse 58572921 K62.3 added to PMH Hyponatremia 32393955 E8 7.1 on salt tabs improvedre peat bmp at f/u with pcp Hypothyroidism 03677947 E03.8 synthroid 100 mcg qdcontinue d Peripheral neuropathic pain 167096477 M79.2 gabapentin 100 mg qhscontinu ed Abnormal u terine bleeding 2026472243 9100 N93.9 carrying dxcontinue medroxypro gesterone 10 mg qd Coronary arteriosclerosis 43459923 I25.10 known hx of s/p stent continued on ASA 81 mg qd Chronic ri ght-sided heart failure 24444263 I50.810 dilation of portal veins and extra [...] [place] Christen Moreno [id number] Christen Moreno 12/16/2024 2 [place] [id number] Christen Moreno [id number] Christen Moreno Notes Date Note Type [...] up by son Luis Antonio Palacio MD [address] [place] [address], [address], [place], [address] , [facility] Tout 12/16/2024 11:23:39 OBGyn Episode No OBEpisode recorded.
--- OUTSIDE RECORDS SUMMARY | 2025-01-02 09:42 | XMS_ITS | Encounter Summary ---
Author Organization [facility] Address [address] [place] [address] Care Team Providers Care Antenna Specialist Name Role Phone Carley Luque MD Primary Care Provider [phone] Encounter Details Date Type Department Care Team (Late st Contact Info) Description 11/20/2024 Scanned Document [facility] Neurology [address] [phone] Neurology, Scan Social History Tobacco Use Types [...] Description 10/10/2025 11:50 AM EST Office Visit [facility] Neurology [address] [phone] Jones Brewer, BANQUET ATTENDANT [address] [phone] documented as of this encounter Visit Diagnoses Not on filedocumented in this encounter Care Teams Antenna Specialist Relationship Specialty Start Date End Date Carley Luque MD [address] [place] [address] [place] [address] PCP - General Family Medicine 08/23/22 documented as of this encounter
--- OUTSIDE RECORDS SUMMARY | 2025-01-02 09:42 | XMS_ITS | Encounter Summary ---
Author Organization [facility] Address [address] [place] [address] Care Team Providers Care Digital Sales Director Name Role Phone Carley Luque MD Primary Care Provider [phone]- [phone] Encounter Details Date Type Department Care Team (Late st Contact Info) Description 02/08/2023 Scanned Document [facility] [address] [phone] Marya Nolen PA [address] [address] Social History Tobacco Use Types Packs/Day Years [...] 10/10/2025 11:50 AM EST Office Visit [facility] Neurology [address] [place] [address] Jones Brewer, SHELBY [address] [facility] [address] [place] [address] documented as of this encounter Visit Diagnoses Not on filedocumented in this encounter Care Teams Digital Sales Director Relationship Specialty Start Date End Date Carley Luque MD [address] [place] [address] [place] [address] PCP - General Family Medicine 08/23/22 documented as of this encounter
--- OUTSIDE RECORDS SUMMARY | 2025-01-02 09:42 | XMS_ITS | Encounter Summary ---
Author Organization [facility] Address [address] [place] [address] Care Team Providers Care Line Decorator Name Role Phone Carley Luque MD Primary Care Provider [phone]- [phone] Reason for Visit * Reason Comments Medication Refill Encounter Details Date Type Department Care Team (Late Contact Info) Description 04/15/2023 Refill [facility] Neurology [address] [phone] Jones Brewer APRN [address] [phone] Parkinson's disease (HCC) Social History Tobacco Use [...] Description 10/10/2025 11:50 AM EST Office Visit [facility] Neurology [address] [place] [phone] Jones Brewer, CLEANING VALIDATION CONSULTANT [address] [facility] [address] [place] [address] documented as of this encounter Visit Diagnoses Diagnosis Parkinson's disease (HCC) Paralysis agitans documented in this encounter Care Teams Line Decorator Relationship Specialty Start Date End Date Carley Luque MD [address] [place] [address] PCP - General Family Medicine 08/23/22 documented as of this encounter
--- OUTSIDE RECORDS SUMMARY | 2025-01-02 09:42 | XMS_ITS | Clinical Summary ---
Author Organization [facility] Address [address] [place] [address] Care Team Providers Care Extrusion Manager Name Role Phone Carley Luque MD Primary Care Provider Allergies Active Allergy Reactions Criticality Noted Date [...] Urinary urgency 08/23/2022 Dyskinesia 08/23/2022 Atherosclerosis of pechanga co ronary artery of pechanga heart without angina pectoris 07/20/2022 Overview (08/23/2022): [...] neurology recommendations, plan is to work with [facility]. Increased frequency of [...] Description 12/20/2024 11:50 AM EST Office Visit [facility] Neurology [address] [address] Jones Brewer APRN Parkinson's disease without dyskinesia or fluctuating manifestations (HCC) (Primary Dx) 12/20/2024 Travel 12/05/2024 Telephone [facility] Neurology [address] [address] Provider, MD Kameron FA - ONGENTYS 11/20/2024 Scanned Document [facility] Neurology [address] [address] Neurology, Scan 11/20/2024 Refill [facility] Neurology [address] [phone] Jones Brewer APRN Parkinson's disease without dyskinesia or fluctuating manifestations (HCC) 11/19/2024 [facility] Neurology [address] [address] Jones Brewer APRN Parkinson's disease (HCC) 11/13/2024 [facility] Neurology [address] [address] Jones Brewer APRN Parkinson's disease without dyskinesia or fluctuating manifestations (HCC) 11/11/2024 [facility] Neurology [address] [address] Jones Brewer APRN Parkinson's disease without dyskinesia or fluctuating manifestations (HCC) 11/05/2024 Telephone [facility] Neurology [address] [phone] Kameron Levy MD ONGENTYS 11/04/2024 Orders Only [facility] Neurology [address] [address] Gary Tapia MD 10/24/2024 [facility] Neurology [address] [address] Jones Brewer APRN Prior Authorization (Ongentys 25mg Capsule) 10/14/2024 Orders Only [facility] Neurology [address] [address] Gary Tapia MD Parkinson's disease without dyskinesia [...] Description 10/10/2025 11:50 AM EST Office Visit [facility] Neurology [place] [address] [facility] [address] [place] [address] Jones Brewer, SHELBY 35 [facility] [address] [place] [address] Health Maintenance Due Date Last Done Comments [...] Documents on File Type Date Recorded Patient Fitting Room Associate Expl anation Advance Directive-Scan 11/20/2024 Manny MONTENEGRO CE DIRECTIVE 02/28/2024 POA Care Teams Extrusion Manager Relationship Specialty Start Date End Date Carley Luque MD [address] [place] [address] [place] [address] PCP - General Family Medicine 08/23/22
[2025-01-02 10:04] LABS: Appearance Urine Cloudy; Color Urine Yellow; Glucose Urine UA Negative (Negative); Leukocyte Esterase Urine Moderate (2+) (Negative); Nitrite Urine Negative (Negative); Specific Gravity - Urine 1.015 (1.005-1.025); UMIC TRIGGER UACC YES; Urine Blood Negative (Negative); Urine Ketones Trace mg/dL (Negative); Urine Protein Trace mg/dL (Neg-Trace)
[2025-01-02 10:17] LABS: Bacteria Urine 4+ (None Seen); Hyaline Casts Urine 0-2 /LPF (0-2); RBC Urine 0-2 /HPF (0-2); Squamous Epithelial Cell Urine 0-2 /HPF (0-2); UACC Culture Trigger YES; WBC Urine 21-50 /HPF (0-5)
[2025-01-02 10:35] LABS: MANUAL DIFF FLAG NO
[2025-01-02 10:38] LABS: Basophils Absolute Auto 0.1 X10*3/uL (0.0-0.2); Basophils Percent Auto 0.8 % (0-2); Eosinophils Percent Auto 0.6 % (0-4); Hematocrit 36.5 % (37.0-47.0); Hemoglobin 12.1 g/dl (12.0-16.0); Imm Gran Abs Auto 0.02 X10*3/uL (0.00-0.03); Imm Gran Pct Auto 0.3 % (0.0-0.4); Lymphocytes Absolute Auto 0.8 X10*3/uL (1.2-4.9); Lymphocytes Percent Auto 11.9 % (20-40); Mean Corpuscular HGB Conc 33.2 g/dl (31.0-35.0); Mean Corpuscular Volume 96.6 fL (80.0-98.0); Mean Platelet Volume 9.7 fL (9.4-12.3); Monocytes Absolute Auto 0.5 X10*3/uL (0.1-1.2); Neutrophils Absolute Auto 5.2 x10*3/uL (2.0-8.3); Neutrophils Percent Auto 79.4 % (45-73); Platelet Count 304 X10*3/uL (160-400); Red Blood Count 3.78 X10*6/uL (4.20-5.50); Red Cell Distribution Width 13.1 % (11.0-16.0); White Blood Count 6.5 X10*3/uL (4.8-10.8)
[2025-01-02 10:49] LABS: Influenza A PCR NEGATIVE (Negative); Influenza B PCR NEGATIVE (Negative); Resp Syncy Virus RNA Qual PCR NEGATIVE (Negative); SARS COV2 PCR INHOUSE NEGATIVE (Negative)
[2025-01-02 10:50] LABS: Ammonia 30 umol/L (13-55)
[2025-01-02 10:57] LABS: Alanine Aminotransferase 9 U/L (0-31); Albumin Level 3.7 g/dL (3.5-5.0); Alkaline Phosphatase 77 U/L (39-117); Anion Gap 14 (12-20); Aspartate Amino Transferase 23 U/L (5-31); Bilirubin Total 0.6 mg/dL (0.0-1.0); Blood Urea Nitrogen 14 mg/dL (9-16); Carbon Dioxide 29 mmol/L (22-29); Chloride 98 mmol/L (96-108); Creatinine Clr Calc Pharmacy 40.8; Estimated Glomerular Filt Rate > 60; Glucose Random 89 mg/dL (60-115); Magnesium 1.9 mg/dL (1.6-2.6); Potassium 3.5 mmol/L (3.3-5.1); Sodium 137 mmol/L (135-145); Total Protein 7.1 g/dL (6.5-8.0)
[2025-01-02 11:04] LABS: Troponin-I High Sensitivity 11.7 ng/L (<3.5-17.0)
[2025-01-02 11:12] LABS: Prothrombin Time 11.6 SEC (10.9-12.4)
[2025-01-02 11:15] LABS: Partial Thromboplastin Time 31.8 SEC (26.0-36.8)
[2025-01-02] MEDS: Ertapenem Sodium 1 GM VIAL IVPUSH (12:00)
--- NOTE | 2025-01-02 12:14 | P.HPHOSP_ITS ---
History of Present Illness Date of Service: 01/02/25 Attending physician on admission: Neftali [facility] Chief Complaint: Generalized weakness Pt is an 84-year-old female with a PMH significant for?Parkinson's disease, HLD, HTN, lumbar stenosis, and rectal prolapse who presents to the ED with generalized weakness and inability to get up out of bed. Pt lives alone in assisted living and has a recent hx of multiple falls at home. Pt admitted to the hospital from 12/05-12/08 for mechanical fall at home and acute UTI. Pt was discharged to [facility] x10 days. Pt then fell again on 12/29/2024 with head strike. Pt was seen in the ED and had 4 cm laceration to occiput that required closure with gail. At that time UA was also positive for UTI and pt was discharged home on cefuroxime 250 mg b.i.d.. Pt reports this morning when she awoke she found that she was unable to stand or ambulate. Reports that her legs ?just collapsed under her? Reports sat back on the bed without fall. Pt also has been experiencing polyuria and dysuria since this morning. Has been compliant with p.o. antibiotics. Pt also complains of some SOB during the night. No cough. Does not carry either asthma or COPD diagnosis, but recently prescribed a rescue inhaler which she did not use today. Of note, review of urine culture on 12/29/2024 shows it grew ESBL Klebsiella resistant to cefazolin and ceftriaxone. Pt also reports that her blood pressure goes up and down but not on antihypertensives. In the ED pt was tachycardic up to 99 and hypertensive up to 190/111. Labs were grossly unremarkable and around baseline for pt. No leukocytosis. Stable H&H. No significant electrolyte abnormalities. Renal function baseline. Hepatic function WNL. Troponin 11.7. Ammonia WNL. Lactic acid WNL. UA showing moderate leukocyte esterase, WBCs 20-50, and 4+ bacteria, similar to previous on 12/29/2024. Tested negative for flu, RSV, and COVID. CXR unremarkable. CT of head negative for or intracranial abnormality, but showed small-vessel occlusive disease, global cerebral atrophy, and intracranial atherosclerotic disease. EKG demonstrated sinus rhythm with occasional PVCs and PACs. Pt was treated with ertapenem. Pt will be admitted to the hospital for treatment and further evaluation of generalized weakness in the setting of ESBL UTI that failed outpatient therapy. Review of Systems 2 Review of Systems: Negative except for that which is stated in the HPI. [facility] Medical History Fall Rectal prolapse Parkinsons disease Surgical History No pertinent past surgical history Social History Household Members: None Housing: Apartment Do you presently have visiting nurse or other home services: Yes Alcohol intake: never Patient Tobacco Use Status: Never used Tobacco Smoked in Last 30 Days: No Use of substances other than those prescribed or required for medical reasons: No Advance Directives: Yes Advance Directives on File: Yes Advance Directives Date on File: 12/11/21 Do you have a plan to hurt others: No Plan Nutrition Risks: No Nutritional Risk service: No Meds Allergies Allergy/AdvReac Type Severity Reaction Status Date / Time ciprofloxacin [From Cipro] Allergy Severe unknown Verified 01/02/25 08:19 Sulfa (Sulfonamide Allergy Severe unknown Verified 01/02/25 08:19 Antibiotics) Home Medications ?Medication ?Instructions ?Recorded ?Confirmed ?Last Taken ?Type aspirin 81 mg tablet,delayed 81 mg PO DAILY@2100 07/17/24 01/02/25 12/04/24 History release (Adult Low Dose Aspirin) carbidopa ER 25 mg-levodopa 100 mg 2 tab PO BEDTIME 07/17/24 01/02/25 12/04/24 History tablet,extended release gabapentin 100 mg capsule 100 mg PO BEDTIME 07/17/24 01/02/25 12/04/24 History levothyroxine 100 mcg tablet 100 mcg PO DAILY@0600 07/17/24 01/02/25 12/05/24 History medroxyprogesterone 10 mg tablet 10 mg PO DAILY 07/17/24 01/02/25 12/05/24 History carbidopa 25 mg-levodopa 100 mg 2 tab PO QID 12/05/24 01/02/25 12/05/24 History tablet psyllium husk 0.52 gram capsule 1.04 g PO BID 12/05/24 01/02/25 12/05/24 History sodium chloride 1,000 mg soluble 1,000 mg PO DAILY 12/05/24 01/02/25 12/05/24 History tablet albuterol sulfate 90 mcg/actuation 2 inh inhalation Q6H PRN Shortness 01/02/25 01/02/25 Unknown History breath activated powder inhaler Of Breath Or Wheezing polyethylene glycol 3350 17 17 g PO DAILY PRN Constipation 01/02/25 01/02/25 Unknown History gram/dose oral powder Physical Exam 2 Vital Signs and Narrative: Vital Signs: Last Vital Signs Temp 97.8 F 01/02/25 11:46 Pulse 99 01/02/25 11:46 Resp 18 01/02/25 11:46 BP 190/111 H 01/02/25 11:46 Pulse Ox 98 01/02/25 11:46 O2 Del Method Room Air 01/02/25 08:18 BMI result Body Mass Index 15.2 General: AOx3, no acute distress. Appears weak and thin, frail. Resp: Mild bilateral lower lobe wheezing CVS: S1, S2, RRR GI: +BS, NT, no distention Skin: Warm, dry Neuro: Cranial nerves II-XII grossly intact bilaterally. Motor grossly intact bilaterally though global Extremities: No edema Psych: Appropriate affect Results Labs 01/02/25 10:26 01/02/25 10:26 Labs: Laboratory Results - last 24 hr 01/02/25 01/02/25 01/02/25 09:55 10:25 10:26 MCV 96.6 MCH 32.0 MCHC 33.2 RDW 13.1 Plt Count 304 MPV 9.7 Immature Gran % (Auto) 0.3 Neut % (Auto) 79.4 H Lymph % (Auto) 11.9 L [place] % (Auto) 7.0 Eos % (Auto) 0.6 Baso % (Auto) 0.8 Lymph # (Auto) 0.8 L [place] # (Auto) 0.5 Eos # (Auto) 0.0 Baso # (Auto) 0.1 Abs Immat Gran (auto) 0.02 Absolute Neuts (auto) 5.2 Absolute Nucleated RBC 0.000 Nucleated RBC % (auto) 0.0 PT 11.6 INR 1.0 APTT 31.8 Anion Gap 14 Estim Creat Clear Calc 40.8 Estimated GFR > 60 Random Glucose 89 Lactic Acid Calcium 9.0 Magnesium 1.9 Total Bilirubin 0.6 AST 23 ALT 9 Alkaline Phosphatase 77 Ammonia 30 Total Protein 7.1 Albumin 3.7 Urine Color Yellow Urine Appearance Cloudy Urine pH 7.0 Ur Specific [place] 1.015 Urine Protein Trace Urine Glucose (UA) Negative Urine Ketones Trace Urine Blood Negative Urine Nitrite Negative Ur Leukocyte Esterase Moderate (2+) H Urine RBC 0-2 Urine WBC 21-50 Ur Squamous Epith Cells 0-2 Urine Bacteria 4+ Hyaline Casts 0-2 Influenza Type A (PCR) NEGATIVE Influenza Type B (PCR) NEGATIVE RSV RNA Qual (PCR) NEGATIVE SARS-CoV-2 RNA (RT-PCR) NEGATIVE 01/02/25 10:30 MCV MCH MCHC RDW Plt Count MPV Immature Gran % (Auto) Neut % (Auto) Lymph % (Auto) [place] % (Auto) Eos % (Auto) Baso % (Auto) Lymph # (Auto) [place] # (Auto) Eos # (Auto) Baso # (Auto) Abs Immat Gran (auto) Absolute Neuts (auto) Absolute Nucleated RBC Nucleated RBC % (auto) PT INR APTT Anion Gap Estim Creat Clear Calc Estimated GFR Random Glucose Lactic Acid 1.0 Calcium Magnesium Total Bilirubin AST ALT Alkaline Phosphatase Ammonia Total Protein Albumin Urine Color Urine Appearance Urine pH Ur Specific [place] Urine Protein Urine Glucose (UA) Urine Ketones Urine Blood Urine Nitrite Ur Leukocyte Esterase Urine RBC Urine WBC Ur Squamous Epith Cells Urine Bacteria Hyaline Casts Influenza Type A (PCR) Influenza Type B (PCR) RSV RNA Qual (PCR) SARS-CoV-2 RNA (RT-PCR) Imaging Radiologist's Impressions: Impressions Chest X-Ray 01/02/25 08:44 IMPRESSION: Unremarkable chest examination. Electronically signed by: Horacio Williamson MD 01/02/2025 09:16 AM EST RP Head CT 01/02/25 10:43 IMPRESSION: No acute fracture, bony calvarium. No acute intracranial hemorrhage. Small vessel occlusive disease. Global cerebral atrophy. Atherosclerosis disease, intracranial. Electronically signed by: Bret Cornejo MD 01/02/2025 11:30 AM [facility] RP Assessment and Plan (1) Urinary tract infection due to ESBL Klebsiella: Status: Acute (2) Weakness: Status: Acute (3) Hypertensive urgency: Status: Acute Plan Pt is an 84-year-old female with a PMH significant for?Parkinson's disease, HLD, HTN, lumbar stenosis, and rectal prolapse who presents to the ED with generalized weakness and inability to get up out of bed. Pt will be admitted to the hospital for treatment and further evaluation of generalized weakness in the setting of ESBL UTI that failed outpatient therapy. Acute ESBL UTI Previously diagnosed on 12/29 and started on cefuroxime 250 b.i.d. UA today similar to previous, pt compliant with home antibiotics, this morning with polyuria and dysuria No sepsis: Tachycardia, no tachypnea, or leukocytosis; lactic acid WNL Pt given ertapenem in the ED Will treat with meropenam, started 01/02/2025 ID consult Follow urine cultures Hypertensive urgency Patient's BP as high as 190/111 Pt not on hypertensive, though review of records indicates BP has previously often been elevated We will give labetalol 10 mg Consider starting on po meds in the morning if BP remains elevated Monitor BP Generalized weakness with hx of recent frequent falls Multifactorial: In the setting of UTI, physical deconditioning from recent hospital stay Discharged on 12/08/2024 to STR x10 days Multiple falls at home since STR, one on 12/29 requiring gail [place] to occiput to be removed sometime between 01/05-01/08 PT consult SOB Duoneb x1 Continue rescue inhaler No other respiratory complaints, CXR negative Moderate protein calorie malnutrition Ensure t.i.d. Parkinson's disorder Continue carbidopa/levodopa DNR/DNI Attending:?Dr. Mensah DVT Prophylaxis: Lovenox Pt will require a hospitalization of at least two nights for treatment of?generalized weakness in the setting of ESBL UTI that failed outpatient therapy. Given that pt is unable to stand or ambulate and has significant hx of recent falls at home, pt will require hospital level care for administration IV antibiotics and specialist consultation with ID and physical therapy for safe disposition home. Quality Stroke Does the patient have a stroke diagnosis?: No VTE Prior VTE?: No VTE Risk Level:: Medical - moderate - high VTE Device Contraindication: Treatment Not Indicated VTE Drug Contraindication: N/A - Med Ordered
--- NOTE | 2025-01-02 12:14 | PC.NURSE ---
patient a&ox3, pt hypertensive on monitor, teletypesetter monitor nsr, lungs crackles, iv/labs/urine obtained prior to this nurse, nikole wick intact, pt medicated with iv abx, per provider ESBL+ to be admitted. Will obtain precautions
--- NOTE | 2025-01-02 12:40 | PHA.MEDREC ---
Addendum entered by Ariane Blevins RPh 01/02/25 13:39: Med rec was reviewed by [facility]. Original Note: Pharmacy Consult ? Medication Reconciliation Pharmacy has completed the medication reconciliation. Spoke with patients son (Shay) to confirm medications. He read off a home med list. Last med rec note from 12/04 reports patient is no longer taking amlodipine, atorvastatin, duloxetine, desvenalfaxine, sertraline and flonase. Shay did report albuterol inh prn and miralax prn. [place] pharmacy confirmed 10 DS of carbidopa-levodopa CR at bedtime, gabapentin 100, and levothyroxine on 12/09/24. Son reports she is not taking Ongentys as well.
[2025-01-02] MEDS: Albuterol/Iprat 2.5/0.5MG 3 ML AMPUL.NEB INHALE (13:06)
[2025-01-02] MEDS: Carbidopa/Levodopa 25/100 TABLET 2 TAB PO ×2 (13:54→17:51)
[2025-01-02] MEDS: Enoxaparin Sodium 40 MG/0.4 ML SYRINGE SUBCUT (13:54)
[2025-01-02] MEDS: Labetalol HCL 100 MG/20 ML VIAL 10 MG IVPUSH (13:54)
--- NOTE | 2025-01-02 14:13 | PC.NURSE ---
pt medicated per order, full bed change performed as pt pulled out pure wick, pt family at bedside requesting briefs, brief applied. pt also moved to hospital bed for pt comfort.
[2025-01-02] MEDS: 0.9 % Sodium Chloride Flush 3 ML SYRINGE IVFLUSH (17:56)
--- NOTE | 2025-01-02 18:02 | PC.NURSE ---
patient a&ox2, vitals have been stable, pure wick intact/draining clear yellow urine-pt has brief on as well per pt request, vitals have corbin stable, nsr with frequent pvcs, family at bedside, call castillo within reach, plan of care ongoing
--- NOTE | 2025-01-02 20:41 | PC.NURSE ---
Med sinemet not avail. Med requested from pharmacy Plan of care ongoing.
[2025-01-02] MEDS: Carbidopa/Levodopa CR 25/100 TABLET.ER 2 TAB PO (21:14)
[2025-01-02] MEDS: Gabapentin 100 MG CAPSULE PO (21:14)
[2025-01-02] MEDS: Aspirin Enteric Coated 81 MG TABLET.DR PO (21:14)
--- NOTE | 2025-01-02 21:18 | PC.NURSE ---
Pt medicated per mar Tolerated well Plan of care ongoing.
[2025-01-03] VITALS: BP 162/86; PULSE 84; RESP 15; TEMP 36.8; O2SAT 96
[2025-01-03] MEDS: Meropenem 1 GM VIAL IVPUSH ×3 (02:02→23:55)
[2025-01-03 04:00] VITALS: BP 166/94; PULSE 83; RESP 16; TEMP 36.7; O2SAT 96
[2025-01-03] MEDS: Carbidopa/Levodopa 25/100 TABLET 2 TAB PO ×4 (05:37→17:09)
[2025-01-03] MEDS: Levothyroxine Sodium 100 MCG TABLET PO (06:34)
[2025-01-03] MEDS: 0.9 % Sodium Chloride Flush 3 ML SYRINGE IVFLUSH ×3 (08:33→20:12)
[2025-01-03 09:19] VITALS: BP 145/65; PULSE 71; RESP 18; TEMP 36.6; O2SAT 97
[2025-01-03 09:29] VITALS: BMI 16.4
--- NOTE | 2025-01-03 09:58 | P.PNIM_ITS ---
Subjective Subjective Date of Service: 01/03/25 Interval History: f/u on fall, weakness, ESBL UTI No new issues Physical Exam 2 Vital Signs: Vital Signs: Last Vital Signs Temp 97.8 F 01/03/25 09:19 Pulse 71 01/03/25 09:19 Resp 18 01/03/25 09:19 BP 145/65 H 01/03/25 09:19 Pulse Ox 97 01/03/25 09:19 O2 Del Method Room Air 01/03/25 09:19 BMI result Body Mass Index 16.4 Const: Other: General: AO X 2, self and place, no acute distress Resp: CTA bilateral CVS: S1,S2,RRR GI: +BS, NT, no distention Skin: No rash Neuro: motor grossly intact Psych: appropriate affect Objective Data Active Medications Acetaminophen (Acetaminophen 325 Mg Tablet) 650 mg PO Q6H PRN PRN Reason: Pain, Mild 1-3,fever,headache Albuterol Sulfate (Albuterol Sulfate 90 Mcg 8 Gm Inhaler) 2 puff INHALE Q6H PRN PRN Reason: Shortness Of Breath Or Wheezing Aspirin (Aspirin Enteric Coated 81 Mg Tablet.Dr) 81 mg PO DAILY@2100 [facility] Last Admin: 01/02/25 21:14 Dose: 81 mg Documented By: DAVEY Calcium Carbonate (Calcium Carbonate 750 Mg Tab.Chew) 750 mg PO Q4H PRN PRN Reason: Heartburn Carbidopa/Levodopa (Carbidopa/Levodopa 25/100 Tablet) 2 tab PO QID@0500,0900,1300,1700 [facility] Last Admin: 01/03/25 05:37 Dose: 2 tab Documented By: SHANA Carbidopa/Levodopa (Carbidopa/Levodopa Cr 25/100 Tablet.Er) 2 tab PO BEDTIME [facility] Last Admin: 01/02/25 21:14 Dose: 2 tab Documented By: DAVEY Enoxaparin Sodium (Enoxaparin Sodium 40 Mg/0.4 Ml Syringe) 40 mg SUBCUT Q24H [facility] Last Admin: 01/02/25 13:54 Dose: 40 mg Documented By: MABEL Gabapentin (Gabapentin 100 Mg Capsule) 100 mg PO BEDTIME [facility] Last Admin: 01/02/25 21:14 Dose: 100 mg Documented By: DAVEY Levothyroxine Sodium (Levothyroxine Sodium 100 Mcg Tablet) 100 mcg PO DAILY@0600 [facility] Last Admin: 01/03/25 06:34 Dose: 100 mcg Documented By: SHANA Magnesium Hydroxide (Milk Of Magnesia 30 Ml Oral.Susp) 30 ml PO DAILY PRN PRN Reason: Constipation Melatonin (Melatonin 3 Mg Tablet) 6 mg PO BEDTIME PRN PRN Reason: Insomnia Meropenem (Meropenem 1 Gm Vial) 1 gm IVPUSH Q12H [facility] Last Admin: 01/03/25 02:02 Dose: 1 gm Documented By: SHANA Ondansetron HCl (Ondansetron Hcl 4 Mg/2 Ml Vial) 4 mg IVPUSH Q8H PRN PRN Reason: Nausea and Vomiting Polyethylene Glycol (Polyethylene Glycol 3350 17 Gm Powd.Pack) 17 gm PO DAILY PRN PRN Reason: Constipation Sodium Chloride (Sodium Chloride Tab 1 Gm Tablet) 1 gm PO DAILY [facility] Sodium Chloride (0.9 % Sodium Chloride Flush 3 Ml Syringe) 3 ml IVFLUSH QSHIFT [facility] Last Admin: 01/03/25 08:33 Dose: 3 ml Documented By: COY Labs 01/02/25 10:26 01/02/25 10:26 Labs: Laboratory Results - last 24 hr 01/02/25 01/02/25 01/02/25 09:55 10:25 10:26 MCV 96.6 MCH 32.0 MCHC 33.2 RDW 13.1 Plt Count 304 MPV 9.7 Immature Gran % (Auto) 0.3 Neut % (Auto) 79.4 H Lymph % (Auto) 11.9 L [place] % (Auto) 7.0 Eos % (Auto) 0.6 Baso % (Auto) 0.8 Lymph # (Auto) 0.8 L [place] # (Auto) 0.5 Eos # (Auto) 0.0 Baso # (Auto) 0.1 Abs Immat Gran (auto) 0.02 Absolute Neuts (auto) 5.2 Absolute Nucleated RBC 0.000 Nucleated RBC % (auto) 0.0 PT 11.6 INR 1.0 APTT 31.8 Anion Gap 14 Estim Creat Clear Calc 40.8 Estimated GFR > 60 Random Glucose 89 Lactic Acid Calcium 9.0 Magnesium 1.9 Total Bilirubin 0.6 AST 23 ALT 9 Alkaline Phosphatase 77 Ammonia 30 Total Protein 7.1 Albumin 3.7 Urine Color Yellow Urine Appearance Cloudy Urine pH 7.0 Ur Specific [place] 1.015 Urine Protein Trace Urine Glucose (UA) Negative Urine Ketones Trace Urine Blood Negative Urine Nitrite Negative Ur Leukocyte Esterase Moderate (2+) H Urine RBC 0-2 Urine WBC 21-50 Ur Squamous Epith Cells 0-2 Urine Bacteria 4+ Hyaline Casts 0-2 Influenza Type A (PCR) NEGATIVE Influenza Type B (PCR) NEGATIVE RSV RNA Qual (PCR) NEGATIVE SARS-CoV-2 RNA (RT-PCR) NEGATIVE 01/02/25 10:30 MCV MCH MCHC RDW Plt Count MPV Immature Gran % (Auto) Neut % (Auto) Lymph % (Auto) [place] % (Auto) Eos % (Auto) Baso % (Auto) Lymph # (Auto) [place] # (Auto) Eos # (Auto) Baso # (Auto) Abs Immat Gran (auto) Absolute Neuts (auto) Absolute Nucleated RBC Nucleated RBC % (auto) PT INR APTT Anion Gap Estim Creat Clear Calc Estimated GFR Random Glucose Lactic Acid 1.0 Calcium Magnesium Total Bilirubin AST ALT Alkaline Phosphatase Ammonia Total Protein Albumin Urine Color Urine Appearance Urine pH Ur Specific [place] Urine Protein Urine Glucose (UA) Urine Ketones Urine Blood Urine Nitrite Ur Leukocyte Esterase Urine RBC Urine WBC Ur Squamous Epith Cells Urine Bacteria Hyaline Casts Influenza Type A (PCR) Influenza Type B (PCR) RSV RNA Qual (PCR) SARS-CoV-2 RNA (RT-PCR) Assessment and Plan (1) Hypertensive urgency: Status: Acute (2) Urinary tract infection due to ESBL Klebsiella: Status: Acute (3) Weakness: Status: Acute Plan Pt is an 84-year-old female with a PMH significant for?Parkinson's disease, HLD, HTN, lumbar stenosis, and rectal prolapse who presents to the ED with generalized weakness and inability to get up out of bed. Pt will be admitted to the hospital for treatment and further evaluation of generalized weakness in the setting of ESBL UTI that failed outpatient therapy. Acute ESBL UTI continue Meropenem started on 01/02/25 ID consult for possible PO option if not then IV Hypertensive urgency, resolved given labetalol 10 1 time in ED start Norvasc 2.5 mg daily Generalized weakness with hx of recent frequent falls Multifactorial: In the setting of UTI, physical deconditioning from recent hospital stay Discharged on 12/08/2024 to STR x10 days Multiple falls at home since STR, one on 12/29 requiring chris Chris to occiput to be removed sometime between 01/05-01/08 PT consult SOB Duoneb x1 Continue rescue inhaler No other respiratory complaints, CXR negative Moderate protein calorie malnutrition Ensure t.i.d. Parkinson's disorder Continue carbidopa/levodopa DNR/DNI Attending:?Dr. Mensah DVT Prophylaxis: Lovenox neept for inpt: IV Abx for resitant UTI Quality Stroke Does the patient have a stroke diagnosis?: No VTE Prior VTE?: No VTE Risk Level:: Medical - moderate - high VTE Device Contraindication: Treatment Not Indicated VTE Drug Contraindication: N/A - Med Ordered
[2025-01-03] MEDS: amLODIPine Besylate 2.5 MG TABLET PO (10:18)
[2025-01-03] MEDS: Sodium Chloride Tab 1 GM TABLET PO (10:18)
[2025-01-03] MEDS: Enoxaparin Sodium 40 MG/0.4 ML SYRINGE SUBCUT (13:04)
--- NOTE | 2025-01-03 13:32 | MHC.CM.PN ---
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
[2025-01-03 13:34] VITALS: BMI 16.4
--- NOTE | 2025-01-03 13:50 | MHC.CLN ---
NUTRITION DIET=REGULAR. ADDING ENSURE TID TO PROVIDE 1050 KCALS, 60 G PROTEIN. NO SIGNIFICANT WEIGHT LOSS X 6 MONTHS. PATIENT REPORTS THAT USUAL HEIGHT WAS 5'6 . QUALIFIES MODERATELY MALNOURISHED IN THE CONTEXT OF CHRONIC ILLNESS. SKIN WITH BLANCHABLE REDNESS TO COCCYX AND HEELS. ENCOURAGE PO INTAKE ABLE. SEE CLINICAL NUTRITION ASSESSMENT 01/03/25.
[2025-01-03 13:52] VITALS: BP 145/65; PULSE 71; O2SAT 97
[2025-01-03 15:11] VITALS: BP 144/81; PULSE 87; RESP 18; TEMP 36.4; O2SAT 99
--- NOTE | 2025-01-03 16:23 | HO.WOUND ---
Wound Consult: Initial 85yr old?[place] [facility] [place] - See progress notes and H&P for detailed history.? Wound consult placed for Redness to Coccyx.? Patient agreeable to assessment and photo documentation.? Sacrum, buttock and coccyx assessed - pink intact blanchable tissue noted. No pressure injury noted at this time. Patient denies pain and or tenderness sacral foam dressing in place recommend continue for prevention and THEA pump to mattress when available. Bilateral heels assessed for redness - remain intact and blanchable no pressure injury noted at this time. Recommend adding preventative foams and elevate off of bed surface with pillows. Recommendations: 1. Turn and Reposition every 2 hours and as needed for patient comfort.? Use pillows or wedges to support off loading positions. 2. Off Load all bony prominences with use of pillows and heel boots if needed.? Apply Preventative foams where needed. ? 3. Monitor for incontinence and moisture control, use barrier creams when needed for prevention and treatment. 4. Provide adequate and supplemental nutrition.? 5. Order low air loss mattress. 6. When applicable maintain blood glucose levels per Providers order. 7.Sacrum - Apply preventative foam dressing, peel back and assess Q shift and change every 5 days and PRN. 8. Bilateral Heels - Elevate heels off of bed surface with pillows. Apply preventative foam dressings, peel back and assess Q shift and change every 5 days. Re-consult wound care Nurse for wound deterioration or wound changes.
[2025-01-03 19:48] VITALS: BP 155/77; PULSE 67; RESP 18; TEMP 36.2; O2SAT 98
[2025-01-03] MEDS: Acetaminophen 325 MG TABLET 650 MG PO (19:48)
[2025-01-03] MEDS: Carbidopa/Levodopa CR 25/100 TABLET.ER 2 TAB PO (20:09)
[2025-01-03] MEDS: Aspirin Enteric Coated 81 MG TABLET.DR PO (20:10)
[2025-01-03] MEDS: Gabapentin 100 MG CAPSULE PO (20:10)
--- NOTE | 2025-01-03 22:07 | P.CNID_ITS ---
History of Present Illness Data of Consult Service Date: 01/03/25 Primary Care Provider: Carley Luque MD HPI Reason for consult: dysuria,MDR urine in past She presents with weakness and inability to ambulate last 4-5 days. She has said she had dysuria early on and now feels better except for some pelvic discomfort which is chronic. SHe has UC pending. She has urine culture 3/2 wih Klebsiella ESBL. Review of Systems 2 Review of Systems: Yes all other systems are reviewed and are negative PENDING SALE TO [facility] Past Medical History Medical History Fall Rectal prolapse Parkinsons disease Family History Family history: reviewed and not pertinent Surgical History Surgical History No pertinent past surgical history Social History Social History Household Members: None Housing: Other Housing Other:: independent living Do you presently have visiting nurse or other home services: Yes ([facility]PA[facility] in [facility]) Alcohol intake: never Patient Tobacco Use Status: Never used Tobacco Smoked in Last 30 Days: No Use of substances other than those prescribed or required for medical reasons: No Currently Displaying Signs/Symptoms of Drug Intoxication Withdrawal: No Have you been hit, kicked, punched, or otherwise hurt by someone within the past year? If so, by whom?: No Do you feel safe in your current relationship?: No Current Relationship Is there a partner from a previous relationship who is making you feel unsafe now?: No Are you made to feel afraid or neglected: No Advance Directives: Yes Advance Directives on File: Yes Advance Directives Date on File: 12/11/21 Do you have a plan to hurt others: No Plan Recently lost weight without trying: No Eating poorly because of decreased appetite: No Nutrition Risks: No Nutritional Risk Patient : No : No Poor oral hygiene: No service: No Meds Allergies Allergy/AdvReac Type Severity Reaction Status Date / Time ciprofloxacin [From Cipro] Allergy Severe unknown Verified 01/02/25 08:19 Sulfa (Sulfonamide Allergy Severe unknown Verified 01/02/25 08:19 Antibiotics) Active Medications: Current Medications Acetaminophen (Acetaminophen 325 Mg Tablet) 650 mg PO Q6H PRN PRN Reason: Pain, Mild 1-3,fever,headache Last Admin: 01/03/25 19:48 Dose: 650 mg Albuterol Sulfate (Albuterol Sulfate 90 Mcg 8 Gm Inhaler) 2 puff INHALE Q6H PRN PRN Reason: Shortness Of Breath Or Wheezing Amlodipine Besylate (Amlodipine Besylate 2.5 Mg Tablet) 2.5 mg PO DAILY [facility]; Protocol Last Admin: 01/03/25 10:18 Dose: 2.5 mg Aspirin (Aspirin Enteric Coated 81 Mg Tablet.Dr) 81 mg PO DAILY@2100 [facility] Last Admin: 01/03/25 20:10 Dose: 81 mg Calcium Carbonate (Calcium Carbonate 750 Mg Tab.Chew) 750 mg PO Q4H PRN PRN Reason: Heartburn Carbidopa/Levodopa (Carbidopa/Levodopa 25/100 Tablet) 2 tab PO QID@0500,0900,1300,1700 [facility] Last Admin: 01/03/25 17:09 Dose: 2 tab Carbidopa/Levodopa (Carbidopa/Levodopa Cr 25/100 Tablet.Er) 2 tab PO BEDTIME [facility] Last Admin: 01/03/25 20:09 Dose: 2 tab Enoxaparin Sodium (Enoxaparin Sodium 40 Mg/0.4 Ml Syringe) 40 mg SUBCUT Q24H [facility] Last Admin: 01/03/25 13:04 Dose: 40 mg Gabapentin (Gabapentin 100 Mg Capsule) 100 mg PO BEDTIME [facility] Last Admin: 01/03/25 20:10 Dose: 100 mg Levothyroxine Sodium (Levothyroxine Sodium 100 Mcg Tablet) 100 mcg PO DAILY@0600 [facility] Last Admin: 01/03/25 06:34 Dose: 100 mcg Magnesium Hydroxide (Milk Of Magnesia 30 Ml Oral.Susp) 30 ml PO DAILY PRN PRN Reason: Constipation Melatonin (Melatonin 3 Mg Tablet) 6 mg PO BEDTIME PRN PRN Reason: Insomnia Meropenem (Meropenem 1 Gm Vial) 1 gm IVPUSH Q12H [facility] Last Admin: 01/03/25 13:03 Dose: 1 gm Ondansetron HCl (Ondansetron Hcl 4 Mg/2 Ml Vial) 4 mg IVPUSH Q8H PRN PRN Reason: Nausea and Vomiting Polyethylene Glycol (Polyethylene Glycol 3350 17 Gm Powd.Pack) 17 gm PO DAILY PRN PRN Reason: Constipation Sodium Chloride (Sodium Chloride Tab 1 Gm Tablet) 1 gm PO DAILY [facility] Last Admin: 01/03/25 10:18 Dose: 1 gm Sodium Chloride (0.9 % Sodium Chloride Flush 3 Ml Syringe) 3 ml IVFLUSH QSHIFT [facility] Last Admin: 01/03/25 20:12 Dose: 3 ml Home Medications ?Medication ?Instructions ?Recorded ?Confirmed ?Last Taken ?Type aspirin 81 mg tablet,delayed 81 mg PO DAILY@2100 07/17/24 01/02/25 12/04/24 History release (Adult Low Dose Aspirin) carbidopa ER 25 mg-levodopa 100 mg 2 tab PO BEDTIME 07/17/24 01/02/25 12/04/24 History tablet,extended release gabapentin 100 mg capsule 100 mg PO BEDTIME 07/17/24 01/02/25 12/04/24 History levothyroxine 100 mcg tablet 100 mcg PO DAILY@0600 07/17/24 01/02/25 12/05/24 History medroxyprogesterone 10 mg tablet 10 mg PO DAILY 07/17/24 01/02/25 12/05/24 History carbidopa 25 mg-levodopa 100 mg 2 tab PO QID 12/05/24 01/02/25 12/05/24 History tablet psyllium husk 0.52 gram capsule 1.04 g PO BID 12/05/24 01/02/25 12/05/24 History sodium chloride 1,000 mg soluble 1,000 mg PO DAILY 12/05/24 01/02/25 12/05/24 History tablet albuterol sulfate 90 mcg/actuation 2 inh inhalation Q6H PRN Shortness 01/02/25 01/02/25 Unknown History breath activated powder inhaler Of Breath Or Wheezing polyethylene glycol 3350 17 17 g PO DAILY PRN Constipation 01/02/25 01/02/25 Unknown History gram/dose oral powder Physical Exam 2 Vital Signs: Vital Signs: Last Vital Signs Temp 97.1 F 01/03/25 19:48 Pulse 67 01/03/25 19:48 Resp 18 01/03/25 19:48 BP 155/77 H 01/03/25 19:48 Pulse Ox 98 01/03/25 19:48 O2 Del Method Room Air 01/03/25 19:48 BMI result Body Mass Index 16.4 Const: General: cooperative HEENT: Head: Yes normal to inspection Face and sinus: Yes normal facial exam Mouth: Normal oral and palatal mucosa present Teeth and gingiva: d entition normal Eyes: General: appearance normal, both eyes and all related structures P upils: Equal, round and reactive pupils present Resp: Effort & Inspection: normal respiratory effort Cardio: Rate: regular rate Rhythm: regular rhythm GI: Palpation (GI): Soft to palpation and nontender : General: Yes no CVA tenderness Back/Spine/Pelvis: Back: no CVA tenderness Skin: General skin exam: no rashes or lesions noted Neuro: General: moves all extremities Cranial nerves: Yes Equal, round and reactive pupils present Extrem: General: Yes normal to inspection Psych: Appearance: grossly normal Results Labs 01/02/25 10:26 01/02/25 10:26 Microbiology Microbiology Results: Microbiology 01/02/25 10:25 Blood - Venous Blood Culture - Preliminary No growth after 24 hours. 01/02/25 09:55 Blood - Venous Blood Culture - Preliminary No growth after 24 hours. 01/02/25 Unknown Urine clean catch - Clean Catch Midstream Urine Culture - Preliminary Gram negative josue Assessment and Plan (1) Urinary tract infection due to ESBL Klebsiella: Status: Acute (2) Weakness: Status: Acute (3) Hypertensive urgency: Status: Acute Plan ESBL Klebsiella urine with dysuria symptoms 3/2 had this Would switch to po Bactrim 10 days if sensitive on repeat. Otherwise may need IV therapy.
[2025-01-04 03:56] VITALS: BP 188/80; PULSE 86; RESP 18; TEMP 36.3; O2SAT 97
[2025-01-04 05:38] VITALS: BP 169/74; PULSE 89; RESP 18; O2SAT 97
[2025-01-04] MEDS: Levothyroxine Sodium 100 MCG TABLET PO (05:49)
[2025-01-04] MEDS: Carbidopa/Levodopa 25/100 TABLET 2 TAB PO ×4 (05:49→17:20)
[2025-01-04 06:21] LABS: Hematocrit 35.9 % (37.0-47.0); Hemoglobin 11.8 g/dl (12.0-16.0); Mean Corpuscular HGB Conc 32.9 g/dl (31.0-35.0); Mean Corpuscular Hemoglobin 31.5 pg (27.0-33.0); Mean Corpuscular Volume 95.7 fL (80.0-98.0); Mean Platelet Volume 9.8 fL (9.4-12.3); Platelet Count 281 X10*3/uL (160-400); Red Blood Count 3.75 X10*6/uL (4.20-5.50); Red Cell Distribution Width 12.9 % (11.0-16.0); White Blood Count 8.9 X10*3/uL (4.8-10.8)
[2025-01-04 06:33] LABS: Anion Gap 11 (12-20); Blood Urea Nitrogen 17 mg/dL (9-16); Calcium 9.2 mg/dL (8.4-10.2); Carbon Dioxide 29 mmol/L (22-29); Chloride 99 mmol/L (96-108); Creatinine Clr Calc Pharmacy 47.3; Estimated Glomerular Filt Rate > 60; Glucose Random 137 mg/dL (60-115); Potassium 3.7 mmol/L (3.3-5.1); Sodium 135 mmol/L (135-145)
[2025-01-04 07:44] VITALS: BP 164/80; PULSE 81; RESP 18; TEMP 36.3; O2SAT 96
[2025-01-04] MEDS: amLODIPine Besylate 2.5 MG TABLET PO (08:14)
[2025-01-04] MEDS: Sodium Chloride Tab 1 GM TABLET PO (08:14)
[2025-01-04] MEDS: 0.9 % Sodium Chloride Flush 3 ML SYRINGE IVFLUSH ×3 (08:14→20:11)
[2025-01-04] MEDS: Meropenem 1 GM VIAL IVPUSH (12:12)
[2025-01-04 15:02] VITALS: BP 136/84; PULSE 93; RESP 17; TEMP 36.3; O2SAT 96
--- NOTE | 2025-01-04 15:17 | HO.PM.IMPN ---
Subjective Subjective Date of Service: 01/04/25 <Lindsey Pham PA-C - Last Filed: 01/04/25 15:21> 01/05/25 <Pj Bo MD - Last Filed: 01/05/25 15:01> Interval History: f/u on fall, weakness, ESBL UTI No new issues Son and pt concerned about d/c to STR, but agreeable after discussion <Lindsey Pham PA-C - Last Filed: 01/04/25 15:21> Constitutional Constitutional: Denies chills, Denies fatigue, Denies fever(s) and Denies headache(s) <Lindsey Pham PA-C - Last Filed: 01/04/25 15:21> Eyes Eyes: Denies change in vision and Denies photophobia <Lindsey Pham PA-C - Last Filed: 01/04/25 15:21> ENT Ears, Nose, Mouth, and Throat: Denies headache(s), Denies nasal congestion, Denies nasal discharge and Denies sore throat <Lindsey Pham PA-C - Last Filed: 01/04/25 15:21> Cardiovascular Cardiovascular: Denies chest pain, Denies rapid heart rate, Denies lightheadedness and Denies dyspnea <SIRIA Davies Last Filed: 01/04/25 15:21> Respiratory Respiratory: Denies cough, Denies dyspnea and Denies wheezing <Lindsey Pham PA-C - Last Filed: 01/04/25 15:21> Gastrointestinal Gastrointestinal: Denies diarrhea, Denies nausea and Denies vomiting <Lindsey Pham PA-C - Last Filed: 01/04/25 15:21> Genitourinary Genitourinary: Denies dysuria and Denies urinary urgency <SIRIA Davies Last Filed: 01/04/25 15:21> Musculoskeletal Musculoskeletal: Denies myalgias <SIRIA Davies Last Filed: 01/04/25 15:21> Integumentary/Breasts Skin/Breast: Denies rash <SIRIA Davies Last Filed: 01/04/25 15:21> Neurologic Neurologic: Reports confusion and Denies headache(s) <Lindsey Pham PA-C - Last Filed: 01/04/25 15:21> Psychiatric Psychiatric: Reports confusion <Lindsey Pham PA-C - Last Filed: 01/04/25 15:21> Endocrine Endocrine: Denies fatigue <MARILY DaviesCaitie - Last Filed: 01/04/25 15:21> Hematologic/Lymphatic Hematologic/Lymphatic: Denies easy bleeding and Denies easy bruising <MARILY DaviesCaitie - Last Filed: 01/04/25 15:21> Allergic/Immunologic Allergic/Immunologic: Denies wheezing <Lindsey Pham PA-C - Last Filed: 01/04/25 15:21> Physical Exam Vital Signs: Vital Signs: Last Vital Signs Temp 97.3 F 01/04/25 15:02 Pulse 93 01/04/25 15:02 Resp 17 01/04/25 15:02 BP 136/84 01/04/25 15:02 Pulse Ox 96 01/04/25 15:02 O2 Del Method Room Air 01/04/25 15:02 BMI result Body Mass Index 16.4 <Lindsey Pham PA-C - Last Filed: 01/04/25 15:21> General: AOx3, no acute distress, hard of hearing Resp: CTA bilaterally CVS: S1, S2, RRR GI: +BS, NT, no distention Skin: Warm, dry Neuro: Cranial nerves II-XII grossly intact bilaterally. Motor grossly intact bilaterally Extremities: No LE edema Psych: Appropriate affect <Lindsey Pham PA-C - Last Filed: 01/04/25 15:21> Const: General: confusion <Lindsey Pham PA-C - Last Filed: 01/04/25 15:21> Orientation/consciousness: confusion <Lindsey Pham PA-C - Last Filed: 01/04/25 15:21> Eyes: Direct Ophthalmoscopy: No photophobia <SIRIA Davies Last Filed: 01/04/25 15:21> Neuro: General: confusion <Lidnsey Pham PA-C - Last Filed: 01/04/25 15:21> Objective Data Active Medications Acetaminophen (Acetaminophen 325 Mg Tablet) 650 mg PO Q6H PRN PRN Reason: Pain, Mild 1-3,fever,headache Last Admin: 01/03/25 19:48 Dose: 650 mg Documented By: MARYBETH Albuterol Sulfate (Albuterol Sulfate 90 Mcg 8 Gm Inhaler) 2 puff INHALE Q6H PRN PRN Reason: Shortness Of Breath Or Wheezing Amlodipine Besylate (Amlodipine Besylate 2.5 Mg Tablet) 2.5 mg PO DAILY [facility]; Protocol Last Admin: 01/04/25 08:14 Dose: 2.5 mg Documented By: ESTRELLITA Aspirin (Aspirin Enteric Coated 81 Mg Tablet.Dr) 81 mg PO DAILY@2100 [facility] Last Admin: 01/03/25 20:10 Dose: 81 mg Documented By: MARYBETH Calcium Carbonate (Calcium Carbonate 750 Mg Tab.Chew) 750 mg PO Q4H PRN PRN Reason: Heartburn Carbidopa/Levodopa (Carbidopa/Levodopa 25/100 Tablet) 2 tab PO QID@0500,0900,1300,1700 [facility] Last Admin: 01/04/25 12:11 Dose: 2 tab Documented By: ESTRELLITA Carbidopa/Levodopa (Carbidopa/Levodopa Cr 25/100 Tablet.Er) 2 tab PO BEDTIME [facility] Last Admin: 01/03/25 20:09 Dose: 2 tab Documented By: MARYBETH Enoxaparin Sodium (Enoxaparin Sodium 40 Mg/0.4 Ml Syringe) 40 mg SUBCUT Q24H [facility] Last Admin: 01/03/25 13:04 Dose: 40 mg Documented By: PRAVIN Gabapentin (Gabapentin 100 Mg Capsule) 100 mg PO BEDTIME [facility] Last Admin: 01/03/25 20:10 Dose: 100 mg Documented By: MARYBETH Levothyroxine Sodium (Levothyroxine Sodium 100 Mcg Tablet) 100 mcg PO DAILY@0600 [facility] Last Admin: 01/04/25 05:49 Dose: 100 mcg Documented By: MARYBETH Magnesium Hydroxide (Milk Of Magnesia 30 Ml Oral.Susp) 30 ml PO DAILY PRN PRN Reason: Constipation Melatonin (Melatonin 3 Mg Tablet) 6 mg PO BEDTIME PRN PRN Reason: Insomnia Meropenem (Meropenem 1 Gm Vial) 1 gm IVPUSH Q12H [facility] Last Admin: 01/04/25 12:12 Dose: 1 gm Documented By: ESTRELLITA Ondansetron HCl (Ondansetron Hcl 4 Mg/2 Ml Vial) 4 mg IVPUSH Q8H PRN PRN Reason: Nausea and Vomiting Polyethylene Glycol (Polyethylene Glycol 3350 17 Gm Powd.Pack) 17 gm PO DAILY PRN PRN Reason: Constipation Sodium Chloride (Sodium Chloride Tab 1 Gm Tablet) 1 gm PO DAILY [facility] Last Admin: 01/04/25 08:14 Dose: 1 gm Documented By: ESTRELLITA Sodium Chloride (0.9 % Sodium Chloride Flush 3 Ml Syringe) 3 ml IVFLUSH QSHIFT [facility] Last Admin: 01/04/25 08:14 Dose: 3 ml Documented By: ESTRELLITA <Lindsey Pham PA-C - Last Filed: 01/04/25 15:21> Labs CBC & Chem 7: 01/04/25 06:08 01/04/25 06:08 <SIRIA Davies Last Filed: 01/04/25 15:21> Labs: Laboratory Results - last 24 hr 01/04/25 06:08 MCV 95.7 MCH 31.5 MCHC 32.9 RDW 12.9 Plt Count 281 MPV 9.8 Absolute Nucleated RBC 0.000 Nucleated RBC % (auto) 0.0 Anion Gap 11 L Estim Creat Clear Calc 47.3 Estimated GFR > 60 Random Glucose 137 H Calcium 9.2 <SIRIA Davies Last Filed: 01/04/25 15:21> Microbiology Microbiology Results: Microbiology 01/02/25 10:25 Blood Culture - Preliminary Blood - Venous No growth after 48 hours. 01/02/25 09:55 Blood Culture - Preliminary Blood - Venous No growth after 48 hours. 01/02/25 Unknown Urine Culture - Final Urine clean catch - Clean Catch Midstream Klebsiella oxytoca <SIRIA Davies Last Filed: 01/04/25 15:21> Assessment and Plan (1) Urinary tract infection due to ESBL Klebsiella: Status: Acute <SIRIA Davies Last Filed: 01/04/25 15:21> (2) Hypertensive urgency: Status: Acute <Lindsey Pham PA-C - Last Filed: 01/04/25 15:21> (3) Weakness: Status: Acute <Lindsey Pham PA-C - Last Filed: 01/04/25 15:21> Assessment and Plan: Pt is an 84-year-old female with a PMH significant for?Parkinson's disease, HLD, HTN, lumbar stenosis, and rectal prolapse who presents to the ED with generalized weakness and inability to get up out of bed. Pt will be admitted to the hospital for treatment and further evaluation of generalized weakness in the setting of ESBL UTI that failed outpatient therapy. Acute ESBL UTI continue Meropenem started on 01/02/25, transition to macrobid 100mg BID x14 days on discharge per ID recommendation Hypertensive urgency, resolved given labetalol 10 1 time in ED continue Norvasc 2.5 mg daily Generalized weakness with hx of recent frequent falls Multifactorial: In the setting of UTI, physical deconditioning from recent hospital stay Discharged on 12/08/2024 to STR x10 days Multiple falls at home since STR, one on 12/29 requiring gail [place] to occiput to be removed sometime between 01/05-01/08 PT consult suggested STR, pt and son agreeable after discussion SOB Duoneb x1 Continue rescue inhaler No other respiratory complaints, CXR negative Moderate protein calorie malnutrition Ensure t.i.d. Parkinson's disorder Continue carbidopa/levodopa DNR/DNI Attending:?Dr. Mensah DVT Prophylaxis: Lovenox neept for inpt: awaiting bed for STR <Lindsey Pham PA-C - Last Filed: 01/04/25 15:21> Quality Stroke Does the patient have a stroke diagnosis?: No <Lindsey Pham PA-C - Last Filed: 01/04/25 15:21> VTE Prior VTE?: No <Lindsey Pham PA-C - Last Filed: 01/04/25 15:21> VTE Risk Level:: Medical - moderate - high <SIRIA Davies Last Filed: 01/04/25 15:21> VTE Device Contraindication: Treatment Not Indicated <Lindsey Pham PA-C - Last Filed: 01/04/25 15:21> VTE Drug Contraindication: N/A - Med Ordered <Lindsey Pham PA-C - Last Filed: 01/04/25 15:21>
[2025-01-04] MEDS: Enoxaparin Sodium 40 MG/0.4 ML SYRINGE SUBCUT (15:21)
--- NOTE | 2025-01-04 16:07 | MHC.CM.PN ---
MD ARACELI AND PA MET WITH PT AND SON AT BEDSIDE PT INITIALLY REFUSING STR, HOWEVER AFTER SOME DISCUSSION, SHE IS NOW AGREEABLE PREFERRED SNFS ARE [facility], [facility], [facility] AND [facility] RESPECTIVELY. REFERRALS OUT
[2025-01-04 19:07] VITALS: BP 149/89; PULSE 81; RESP 17; TEMP 36.6; O2SAT 97
[2025-01-04] MEDS: Gabapentin 100 MG CAPSULE PO (20:10)
[2025-01-04] MEDS: Carbidopa/Levodopa CR 25/100 TABLET.ER 2 TAB PO (20:10)
[2025-01-04] MEDS: Aspirin Enteric Coated 81 MG TABLET.DR PO (20:10)
[2025-01-05] MEDS: Meropenem 1 GM VIAL IVPUSH ×2 (00:01→12:22)
[2025-01-05] MEDS: 0.9 % Sodium Chloride Flush 3 ML SYRINGE IVFLUSH ×3 (00:01→14:48)
[2025-01-05 03:21] VITALS: BP 173/69; PULSE 82; RESP 14; TEMP 36.1; O2SAT 93
[2025-01-05] MEDS: Levothyroxine Sodium 100 MCG TABLET PO (05:45)
[2025-01-05] MEDS: Carbidopa/Levodopa 25/100 TABLET 2 TAB PO ×4 (05:45→16:57)
[2025-01-05 07:23] VITALS: BP 168/84; PULSE 74; RESP 18; TEMP 36.3; O2SAT 95
[2025-01-05] MEDS: Sodium Chloride Tab 1 GM TABLET PO (08:04)
[2025-01-05] MEDS: amLODIPine Besylate 2.5 MG TABLET PO (08:04)
--- NOTE | 2025-01-05 12:45 | PC.NURSE ---
While pt on toilet having BM, rectum prolapsed. Pt with history of this. Dr. Bo notified. Pt put back to bed and able to manually push prolapse back in. Dr. Bo notified. Pt resting comfortably at present.
[2025-01-05] MEDS: Enoxaparin Sodium 40 MG/0.4 ML SYRINGE SUBCUT (14:48)
--- NOTE | 2025-01-05 15:01 | HO.PM.IMPN ---
Subjective Subjective Date of Service: 01/05/25 Interval History: Offers no acute complaints feeling significantly better awake alert answering questions appropriately, no acute overnight events. Tolerated breakfast, no nausea, no vomiting. Review of Systems All other system reviewed and are negative Physical Exam Vital Signs: Vital Signs: Last Vital Signs Temp 97.3 F 01/05/25 07:23 Pulse 74 01/05/25 07:23 Resp 18 01/05/25 07:23 BP 168/84 H 01/05/25 07:23 Pulse Ox 95 01/05/25 07:23 O2 Del Method Room Air 01/05/25 07:23 BMI result Body Mass Index 16.4 Const: Other: General resting comfortably in no acute distress. Scalp two gail with old blood Neck supple no JVD. CVS regular rate rhythm, Respiratory lungs clear to auscultation, no respiratory distress, no wheeze, no rhonchi. Gastrointestinal abdomen soft, non tender, bowel sounds audible Extremities no edema. Neuro non focal Skin no rash Psychiatry appropriate affect Objective Data Active Medications Acetaminophen (Acetaminophen 325 Mg Tablet) 650 mg PO Q6H PRN PRN Reason: Pain, Mild 1-3,fever,headache Last Admin: 01/03/25 19:48 Dose: 650 mg Documented By: MARYBETH Albuterol Sulfate (Albuterol Sulfate 90 Mcg 8 Gm Inhaler) 2 puff INHALE Q6H PRN PRN Reason: Shortness Of Breath Or Wheezing Amlodipine Besylate (Amlodipine Besylate 2.5 Mg Tablet) 2.5 mg PO DAILY [facility]; Protocol Last Admin: 01/05/25 08:04 Dose: 2.5 mg Documented By: ESTRELLITA Aspirin (Aspirin Enteric Coated 81 Mg Tablet.Dr) 81 mg PO DAILY@2100 [facility] Last Admin: 01/04/25 20:10 Dose: 81 mg Documented By: MARYBETH Calcium Carbonate (Calcium Carbonate 750 Mg Tab.Chew) 750 mg PO Q4H PRN PRN Reason: Heartburn Carbidopa/Levodopa (Carbidopa/Levodopa 25/100 Tablet) 2 tab PO QID@0500,0900,1300,1700 [facility] Last Admin: 01/05/25 12:22 Dose: 2 tab Documented By: ESTRELLITA Carbidopa/Levodopa (Carbidopa/Levodopa Cr 25/100 Tablet.Er) 2 tab PO BEDTIME [facility] Last Admin: 01/04/25 20:10 Dose: 2 tab Documented By: MARYBETH Enoxaparin Sodium (Enoxaparin Sodium 40 Mg/0.4 Ml Syringe) 40 mg SUBCUT Q24H [facility] Last Admin: 01/05/25 14:48 Dose: 40 mg Documented By: ESTRELLITA Gabapentin (Gabapentin 100 Mg Capsule) 100 mg PO BEDTIME [facility] Last Admin: 01/04/25 20:10 Dose: 100 mg Documented By: MARYBETH Levothyroxine Sodium (Levothyroxine Sodium 100 Mcg Tablet) 100 mcg PO DAILY@0600 [facility] Last Admin: 01/05/25 05:45 Dose: 100 mcg Documented By: MARYBETH Magnesium Hydroxide (Milk Of Magnesia 30 Ml Oral.Susp) 30 ml PO DAILY PRN PRN Reason: Constipation Melatonin (Melatonin 3 Mg Tablet) 6 mg PO BEDTIME PRN PRN Reason: Insomnia Meropenem (Meropenem 1 Gm Vial) 1 gm IVPUSH Q12H [facility] Last Admin: 01/05/25 12:22 Dose: 1 gm Documented By: ESTRELLITA Ondansetron HCl (Ondansetron Hcl 4 Mg/2 Ml Vial) 4 mg IVPUSH Q8H PRN PRN Reason: Nausea and Vomiting Polyethylene Glycol (Polyethylene Glycol 3350 17 Gm Powd.Pack) 17 gm PO DAILY PRN PRN Reason: Constipation Sodium Chloride (Sodium Chloride Tab 1 Gm Tablet) 1 gm PO DAILY [facility] Last Admin: 01/05/25 08:04 Dose: 1 gm Documented By: ESTRELLITA Sodium Chloride (0.9 % Sodium Chloride Flush 3 Ml Syringe) 3 ml IVFLUSH QSHIFT [facility] Last Admin: 01/05/25 14:48 Dose: 3 ml Documented By: ESTRELLITA Labs 01/04/25 06:08 01/04/25 06:08 Microbiology Microbiology Results: Microbiology 01/02/25 10:25 Blood Culture - Preliminary Blood - Venous No growth after 48 hours. 01/02/25 09:55 Blood Culture - Preliminary Blood - Venous No growth after 48 hours. Assessment and Plan (1) Hypertensive urgency: Status: Acute (2) Urinary tract infection due to ESBL Klebsiella: Status: Acute (3) Rectal prolapse: Status: Acute Plan 84-year-old female with a PMH significant for?Parkinson's disease, HLD, HTN, lumbar stenosis, and rectal prolapse who presents to the ED with generalized weakness and inability to get up out of bed. Pt will be admitted to the hospital for treatment and further evaluation of generalized weakness in the setting of ESBL UTI that failed outpatient therapy. Acute ESBL UTI continue Meropenem started on 01/02/25 Upon discharge will transition to by mouth Macrobid 100 mg b.i.d. times 14 days as per ID recommendation Hypertensive urgency, resolved given labetalol 10 1 time in ED start Norvasc 2.5 mg daily Generalized weakness with hx of recent frequent falls Multifactorial: In the setting of UTI, physical deconditioning from recent hospital stay Discharged on 12/08/2024 to STR x10 days Multiple falls at home since STR, one on 12/29 requiring gail [place] to occiput removed today PT recommend short-term rehab patient and son agreed , cm arranging for safe disposition SOB Duoneb x1 Continue rescue inhaler No other respiratory complaints, CXR negative Moderate protein calorie malnutrition Ensure t.i.d. Parkinson's disorder Continue carbidopa/levodopa DNR/DNI DVT Prophylaxis: Lovenox neept for inpt: IV Abx for resitant UTI and safe disposition Quality Stroke Does the patient have a stroke diagnosis?: No VTE Prior VTE?: No VTE Risk Level:: Medical - moderate - high VTE Device Contraindication: Treatment Not Indicated VTE Drug Contraindication: N/A - Med Ordered
[2025-01-05 15:17] VITALS: BP 149/70; PULSE 87; RESP 15; TEMP 36.6; O2SAT 97
[2025-01-05] MEDS: Albuterol Sulfate 90 MCG 8 GM INHALER 2 PUFF INHALE (16:59)
[2025-01-05 19:20] VITALS: BP 121/69; PULSE 95; RESP 16; TEMP 36.1; O2SAT 95
[2025-01-05] MEDS: Gabapentin 100 MG CAPSULE PO (20:09)
[2025-01-05] MEDS: Carbidopa/Levodopa CR 25/100 TABLET.ER 2 TAB PO (20:09)
[2025-01-05] MEDS: Aspirin Enteric Coated 81 MG TABLET.DR PO (20:09)
[2025-01-06] MEDS: Meropenem 1 GM VIAL IVPUSH ×2 (00:51→13:22)
[2025-01-06] MEDS: 0.9 % Sodium Chloride Flush 3 ML SYRINGE IVFLUSH ×2 (00:51→08:32)
[2025-01-06 03:06] VITALS: BP 149/81; PULSE 86; RESP 16; TEMP 36.5; O2SAT 96
[2025-01-06] MEDS: Carbidopa/Levodopa 25/100 TABLET 2 TAB PO ×3 (05:18→13:22)
[2025-01-06] MEDS: Levothyroxine Sodium 100 MCG TABLET PO (05:18)
[2025-01-06 07:44] VITALS: BP 158/71; PULSE 67; RESP 18; TEMP 36.5; O2SAT 97
--- NOTE | 2025-01-06 08:20 | PM.DS ---
DS: Providers Provider Date of Service: 01/04/25 <Lindsey Pham PA-C - Last Filed: 01/04/25 15:43> 01/06/25 <Neftali Mensah MD - Last Filed: 01/06/25 08:28> Date of admission: 01/02/25 13:01 <Lindsey Pham PA-C - Last Filed: 01/04/25 15:43> Date of discharge: 01/04/25 <Lindsey Pham PA-C - Last Filed: 01/04/25 15:43> 01/06/25 <Neftali Mensah MD - Last Filed: 01/06/25 08:28> Primary care physician: Carley Luque MD <Lindsey Pham PA-C - Last Filed: 01/04/25 15:43> Consults: 01/02/25 11:24 Consult to Infectious Diseases Routine Consulting Provider: [facility] Reason for consultation: ESBL, allergic to alternatives, R to Cefazolin - been on Cefuroxime Has provider been notified: No 01/02/25 12:53 Consult to Infectious Diseases Routine Consulting Provider: [facility] Reason for consultation: ESBL, allergic to alternatives, R to Cefazolin - been on Cefuroxime 01/03/25 09:32 Consult to Wound Care Routine Reason for consultation: redness coccyx <Lindsey Pham PA-C - Last Filed: 01/04/25 15:43> DS: Diagnosis Discharge Diagnosis (1) Urinary tract infection due to ESBL Klebsiella: Status: Acute <SIRIA Davies Last Filed: 01/04/25 15:43> (2) Weakness: Status: Acute <SIRIA Davise Last Filed: 01/04/25 15:43> (3) Hypertensive urgency: Status: Resolved <SIRIA Davies Last Filed: 01/04/25 15:43> DS: Summary Hospital Course Hospital Course: Admission history: Pt is an 84-year-old female with a PMH significant for?Parkinson's disease, HLD, HTN, lumbar stenosis, and rectal prolapse who presents to the ED with generalized weakness and inability to get up out of bed. Pt lives alone in assisted living and has a recent hx of multiple falls at home. Pt admitted to the hospital from 12/05-12/08 for mechanical fall at home and acute UTI. Pt was discharged to STR x10 days. Pt then fell again on 12/29/2024 with head strike. Pt was seen in the ED and had 4 cm laceration to occiput that required closure with gail. At that time UA was also positive for UTI and pt was discharged home on cefuroxime 250 mg b.i.d.. Pt reports this morning when she awoke she found that she was unable to stand or ambulate. Reports that her legs ?just collapsed under her? Reports sat back on the bed without fall. Pt also has been experiencing polyuria and dysuria since this morning. Has been compliant with p.o. antibiotics. Pt also complains of some SOB during the night. No cough. Does not carry either asthma or COPD diagnosis, but recently prescribed a rescue inhaler which she did not use today. Of note, review of urine culture on 12/29/2024 shows it grew ESBL Klebsiella resistant to cefazolin and ceftriaxone. Pt also reports that her blood pressure goes up and down but not on antihypertensives. In the ED pt was tachycardic up to 99 and hypertensive up to 190/111. Labs were grossly unremarkable and around baseline for pt. No leukocytosis. Stable H&H. No significant electrolyte abnormalities. Renal function baseline. Hepatic function WNL. Troponin 11.7. Ammonia WNL. Lactic acid WNL. UA showing moderate leukocyte esterase, WBCs 20-50, and 4+ bacteria, similar to previous on 12/29/2024. Tested negative for flu, RSV, and COVID. CXR unremarkable. CT of head negative for or intracranial abnormality, but showed small-vessel occlusive disease, global cerebral atrophy, and intracranial atherosclerotic disease. EKG demonstrated sinus rhythm with occasional PVCs and PACs. Pt was treated with ertapenem. Pt will be admitted to the hospital for treatment and further evaluation of generalized weakness in the setting of ESBL UTI that failed outpatient therapy. Hospital course: Patient was started on ertapenem in the ED due to an acute UTI and a history of ESBL, then switched to meropenem on 01/02/2025. BP was also elevated, reaching as high as 190/111. The patient was not on any antihypertensives, although records indicated previously elevated BP. After receiving labetalol 10 mg and starting Norvasc 2.5 mg daily, the patient has maintained blood pressures around 160/80. She also has generalized weakness with a history of recent frequent falls, multifactorial in the setting of UTI and physical deconditioning from a recent hospital stay. She was recently discharged on 12/08/2024 to short-term rehab for 10 days. She has had multiple falls since short-term rehab, including one on 12/29/2024 requiring gail on the occiput, to be removed between 01/05-01/08. The patient also experienced some shortness of breath during her stay but is no longer experiencing this. She received one DuoNeb treatment, with a negative chest X-ray and no further respiratory complaints. PT evaluation recommended discharge to short-term rehab. Continue Norvasc 2.5 mg daily for hypertension. Urine culture was discussed with ID, who suggested Macrobid 100 mg b.i.d. for 14 days due to multiple allergies. <Lindsey Pham PA-C - Last Filed: 01/04/25 15:43> Status at Discharge Functional status at discharge: uses cane/walker <Lindsey Pham PA-C - Last Filed: 01/04/25 15:43> Overall status at discharge: patient is progressing back to baseline <Lindsey Pham PA-C - Last Filed: 01/04/25 15:43> Time Attestation Discharge Coordination Time (in mins): 45 mins <SIRIA Dvaies Last Filed: 01/04/25 15:43> Quality: Safe Use of Opioids Does Pt have an Active Cancer Diagnosis on the Problem List?: No <Lindsey Pham PA-C - Last Filed: 01/04/25 15:43> Quality: Stroke Does the patient have a stroke diagnosis?: No <SIRIA Davies Last Filed: 01/04/25 15:43> Physical Exam Vital Signs: Vital Signs: Last Vital Signs Temp 97.3 F 01/04/25 07:44 Pulse 81 01/04/25 07:44 Resp 18 01/04/25 07:44 BP 164/80 H 01/04/25 07:44 Pulse Ox 96 01/04/25 07:44 O2 Del Method Room Air 01/04/25 07:44 BMI result Body Mass Index 16.4 <Lindsey Pham PA-C - Last Filed: 01/04/25 15:43> Vital Signs: Selected Entries 01/06/25 07:44 Temperature 97.7 F Pulse Rate 67 Respiratory Rate 18 Blood Pressure 158/71 H Pulse Oximetry 97 Oxygen Delivery Me thod Room Air <Neftali Mensah MD - Last Filed: 01/06/25 08:28> General: AOx3, no acute distress, hard of hearing Resp: CTA bilaterally CVS: S1, S2, RRR GI: +BS, NT, no distention Skin: Warm, dry Neuro: Cranial nerves II-XII grossly intact bilaterally. Motor grossly intact bilaterally Extremities: No LE edema Psych: Appropriate affect <Lindsey Pham PA-C - Last Filed: 01/04/25 15:43> DS: Data Data Completed and Pending Labs on day of discharge: Laboratory Results - last 24 hr 01/04/25 06:08 WBC 8.9 RBC 3.75 L Hgb 11.8 L Hct 35.9 L MCV 95.7 MCH 31.5 MCHC 32.9 RDW 12.9 Plt Count 281 MPV 9.8 Absolute Nucleated RBC 0.000 Nucleated RBC % (auto) 0.0 Sodium 135 Potassium 3.7 Chloride 99 Carbon Dioxide 29 Anion Gap 11 L BUN 17 H Creatinine 0.62 Estim Creat Clear Calc 47.3 Estimated GFR > 60 Random Glucose 137 H Calcium 9.2 Preliminary micro results at discharge 01/02/25 10:25 Blood Culture - Preliminary Blood - Venous No growth after 24 hours. 01/02/25 09:55 Blood Culture - Preliminary Blood - Venous No growth after 24 hours. <Lindsey Pham PA-C - Last Filed: 01/04/25 15:43> Discharge Plan Discharge Anticipated Discharge Date/Time: 01/06/25 08:26 <Lindsey Pham PA-C - Last Filed: 01/04/25 15:43> Patient Disposition: Xfer Inpatient Rehab Fac <SIRIA Davies Last Filed: 01/04/25 15:43> Discharge Diagnosis: UTI, weakness, fall, hypertensive urgency <Lindsey Pham PA-C - Last Filed: 01/04/25 15:43> UTI, weakness, fall, hypertensive urgency <Neftali Mensah MD - Last Filed: 01/06/25 08:28> Referrals: Carley Luque MD [Primary Care Provider] - 1 Week <Lindsey Pham PA-C - Last Filed: 01/04/25 15:43> Discharge Medications: New amlodipine 2.5 mg Tablet 2.5 mg PO DAILY Qty: 90 0RF Protocol: Hold for SBP< HOLD for SBP < : 90 nitrofurantoin monohyd/m-cryst [Macrobid] 100 mg capsule 100 mg PO BID Qty: 28 0RF Rx Instructions: must administer with a meal/food Continued carbidopa-levodopa 25-100 mg tablet 2 tab PO QID Rx Instructions: @0500,0900,1300,1700 psyllium husk 0.52 gram Capsule 1.04 g PO BID sodium chloride 1,000 mg Tablet,Soluble 1,000 mg PO DAILY polyethylene glycol 3350 17 gram/dose Powder 17 g PO DAILY PRN (Reason: Constipation) albuterol sulfate 90 mcg/actuation Aerosol Powdr Breath Activated 2 inh INHALATION Q6H PRN (Reason: Shortness Of Breath Or Wheezing) carbidopa-levodopa 25-100 mg tablet extended release 2 tab PO BEDTIME medroxyprogesterone 10 mg tablet 10 mg PO DAILY levothyroxine 100 mcg tablet 100 mcg PO DAILY@0600 gabapentin 100 mg capsule 100 mg PO BEDTIME aspirin [Adult Low Dose Aspirin] 81 mg tablet,delayed release (DR/EC) 81 mg PO DAILY@2100 Discontinued cefuroxime axetil 250 mg tablet 250 mg PO BID 7 Days Qty: 14 0RF <SIRIA Davies Last Filed: 01/04/25 15:43> Discharge Orders: Discharge Order (Routine); Ordered 01/06/25 Ordered By: Neftali Mensah <SIRIA Davies Last Filed: 01/04/25 15:43> Diet: Advance to usual diet <SIRIA Davies Last Filed: 01/04/25 15:43> Advance to usual diet <Neftali Mensah MD - Last Filed: 01/06/25 08:28> Activity on Discharge: As tolerated <SIRIA Davies Last Filed: 01/04/25 15:43> As tolerated <Neftali Mensah MD - Last Filed: 01/06/25 08:28> Stand Alone Forms: Patient Portal Discharge page <SIRIA Davies Last Filed: 01/04/25 15:43> Print Language: Singaporean <SIRIA Davies Last Filed: 01/04/25 15:43> Care Plan Goals: Recovery from urinary tract infection, improve weakness <SIRIA Davies Last Filed: 01/04/25 15:43> Health Concerns: UTI generalized weakness with history of recurrent falls, hypertensive urgency <SIRIA Davies Last Filed: 01/04/25 15:43> Plan of Treatment: take Macrobid 100 mg twice daily for 14 days for urinary tract infection take Norvasc 2.5 mg daily for hypertension discharge to short-term rehab for weakness follow-up with PCP within 1-2 weeks will need gail removed from occiput between 01/05-01/08 from fall on 12/29 <SIRIA Davies Last Filed: 01/04/25 15:43> Assessment: see above <SIRIA Davies Last Filed: 01/04/25 15:43>
[2025-01-06] MEDS: amLODIPine Besylate 5 MG TABLET PO (08:32)
[2025-01-06] MEDS: Sodium Chloride Tab 1 GM TABLET PO (08:32)
[2025-01-06 10:47] VITALS: BP 158/71; PULSE 67; O2SAT 97
--- NOTE | 2025-01-06 11:22 | MHC.CM.PN ---
Addendum entered by Cecy Melissa 01/06/25 14:55: FINAL IMM ISSUED PT'S DC HAS BEEN POSTPONED UNTIL 5 PM PENDING RESULTS OF TEST FOR C-DIFF, PT'S SON, RN AND CENTER UPDATED. Original Note: DP: PT HAS BEEN MEDICALLY CLEARED FOR DC TO [facility].. [facility] HAS OFFERED A BED AND BOTH PT/SON ARE IN AGREEMENT. BLS TRANSPORT BOOKED FOR 1 PM [facility]IA [facility]. RN NOTIFIED
[2025-01-06] MEDS: Enoxaparin Sodium 40 MG/0.4 ML SYRINGE SUBCUT (13:22)
[2025-01-06 16:02] VITALS: BP 131/68; PULSE 74; RESP 18; TEMP 36.8; O2SAT 97
== END 2025-01-06 17:17 | DRG 690 ==
LOC: HO.ED 12:25 → HO.EDOVER 13:15 → HO.S3 01-03 07:59
PROVIDERS: Physician Assistant Medical; Admitting Provider Student in an Organized Health Care Education/Training Program; Emergency Provider Emergency Medicine; PCP Student in an Organized Health Care Education/Training Program; Visit Provider Internal Medicine
DX: N39.0 Urinary tract infection, site not specified (principal); Z16.12 Extended spectrum beta lactamase (ESBL) resistance; E44.0 Moderate protein-calorie malnutrition; Z68.1 Body mass index [BMI] 19.9 or less, adult; G20.A1 Parkinson's disease without dyskinesia, without mention of fluctuations; Z66 Do not resuscitate; I10 Essential (primary) hypertension; R53.81 Other malaise; I16.0 Hypertensive urgency; E78.5 Hyperlipidemia, unspecified; B96.89 Other specified bacterial agents as the cause of diseases classified elsewhere; Z87.440 Personal history of urinary (tract) infections; Z20.822 Contact with and (suspected) exposure to COVID-19; Z79.82 Long term (current) use of aspirin; Z79.890 Hormone replacement therapy; Z79.899 Other long term (current) drug therapy
CPT/HCPCS: 0241U; 36415; 70450; 71045; 80048; 80053; 81001; 81003; 82140; 83605; 83735; 84484; 85025; 85027; 85610; 85730; 87040; 87086; 87088; 87186; 93005; 94640; 97162; 97530; 99285; J1335; J1650; J1920; J2185

== ENCOUNTER → 2025-01-02 08:44 | Outpatient (BNV) | payer MEDICARE, SELFPAY | PROVIDERS: Emergency Provider Emergency Medicine; PCP Student in an Organized Health Care Education/Training Program; Visit Provider Internal Medicine Cardiovascular Disease | DX: R07.9 Chest pain, unspecified (principal); R94.31 Abnormal electrocardiogram [ECG] [EKG] | CPT/HCPCS: 93010 ==

== ENCOUNTER → 2025-01-02 08:44 | Outpatient (BNV) | payer MEDICARE, SELFPAY | PROVIDERS: Emergency Provider Emergency Medicine; PCP Student in an Organized Health Care Education/Training Program; Visit Provider Radiology Diagnostic Radiology | DX: R41.82 Altered mental status, unspecified (principal); G31.9 Degenerative disease of nervous system, unspecified; R53.1 Weakness | CPT/HCPCS: 70450; 71045 ==

== ENCOUNTER → 2025-01-02 13:01 | Outpatient (BNV) | payer MEDICARE, SELFPAY | PROVIDERS: Admitting Provider Student in an Organized Health Care Education/Training Program; Emergency Provider Emergency Medicine; PCP Student in an Organized Health Care Education/Training Program; Visit Provider Student in an Organized Health Care Education/Training Program | DX: N39.0 Urinary tract infection, site not specified (principal); B96.89 Other specified bacterial agents as the cause of diseases classified elsewhere; I16.0 Hypertensive urgency; R53.1 Weakness; K62.3 Rectal prolapse | CPT/HCPCS: 99222; 99232 ==

== ENCOUNTER → 2025-01-02 13:01 | Outpatient (BNV) | payer MEDICARE, SELFPAY | PROVIDERS: Admitting Provider Student in an Organized Health Care Education/Training Program; Emergency Provider Emergency Medicine; PCP Student in an Organized Health Care Education/Training Program; Visit Provider Internal Medicine | DX: N39.0 Urinary tract infection, site not specified (principal); B96.89 Other specified bacterial agents as the cause of diseases classified elsewhere; R53.1 Weakness; I16.0 Hypertensive urgency | CPT/HCPCS: 99222 ==

== ENCOUNTER 2025-01-27 12:22 | Emergency (ER) | payer MEDICARE, SELFPAY ==
--- NOTE | ~2025-01-27 | CT_ITS ---
EXAMINATION: CT HEAD WITHOUT CONTRAST CLINICAL INFORMATION: fall, head injury COMPARISON: January 02, 2025. TECHNIQUE: Contiguous axial imaging was performed from the skull base to vertex without intravenous administration of contrast. This CT examination was performed using dose optimization techniques as appropriate, variously including the following: *Automated exposure control *Adjustment of mA and/or kV according to patient size (this includes techniques or standardized protocols for targeted exams where dose is matched to indication/reason for exam; i.e. extremities or head) *Use of iterative reconstruction technique DLP: 818 mGy-cm FINDINGS: Bony calvarium is intact. Skull base is intact. No acute intracranial hemorrhage, mass effect, midline shift, hydrocephalus or herniation. Morrison-white matter differentiation is normal. Bilateral multifocal patchy and confluent deep periventricular white matter hypodensities involving centrum semiovale and beltran radiata. 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 Calcified plaques in the cavernous supracavernous segments both ICAs and V4 segments of the vertebral arteries. Sellar/suprasellar region demonstrated no gross masses. Craniocervical junction and demonstrated partially calcified pannus formation periodontal C1 region. No air-fluid levels in the paranasal sinuses. Tympanic cavities and mastoid cells are aerated. CT/CT head/brain wo IV con IMPRESSION: No acute fracture, bony calvarium. No acute intracranial hemorrhage. 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 Electronically signed by: Bret Cornejo MD 01/27/2025 03:21 PM EDT
[2025-01-27 12:35] VITALS: BP 127/69; BP 151/83; PULSE 83; PULSE 87; RESP 16; TEMP 36.3; O2SAT 97; O2SAT 98; BMI 19.2
--- NOTE | 2025-01-27 12:51 | ED_ITS ---
HPI - Fall General Chief Complaint: Fall Stated Complaint: FALL,R SIDE PAIN,-LOC,+CCOLLAR,-THINNER PER EMS Time Seen by Provider: 01/27/25 12:37 Source: patient, family and EMS Mode of arrival: EMS Limitations: no limitations History of Present Illness ED Provider: DR. England HPI Narrative: 85-year-old female from [facility] brought in by EMS for evaluation after had a fall this morning. PMH for Parkinson disease and unsteady gait patient normally use a walker to walk, HLD, HTN, lumbar stenosis, and rectal prolapse patient had a mechanical fall today felt very weak and could not balance herself resulted in falling, no LOC, no lightheadedness, no chest pain, patient had previous similar symptoms in the past and was attributed to UTI. Patient is currently on Ceftin for UTI has no dysuria, no frequency urination no hematuria. Patient complains of right hip pain for the past 6 months. No neck pain, no chest pain, no abdominal pain, no extremity pain, declined anticoagulation therapy. Related Data Home Medications ?Medication ?Instructions ?Recorded ?Confirmed aspirin 81 mg tablet,delayed 81 mg PO DAILY@2100 07/17/24 01/27/25 release (Adult Low Dose Aspirin) carbidopa ER 25 mg-levodopa 100 mg 2 tab PO BEDTIME 07/17/24 01/27/25 tablet,extended release gabapentin 100 mg capsule 100 mg PO BEDTIME 07/17/24 01/27/25 levothyroxine 100 mcg tablet 100 mcg PO DAILY@0600 07/17/24 01/27/25 medroxyprogesterone 10 mg tablet 10 mg PO DAILY 07/17/24 01/27/25 carbidopa 25 mg-levodopa 100 mg 2 tab PO QID 12/05/24 01/27/25 tablet psyllium husk 0.52 gram capsule 1.04 g PO BID 12/05/24 01/27/25 sodium chloride 1,000 mg soluble 1,000 mg PO DAILY 12/05/24 01/27/25 tablet albuterol sulfate 90 mcg/actuation 2 inh inhalation Q6H PRN Shortness 01/02/25 01/27/25 breath activated powder inhaler Of Breath Or Wheezing cefuroxime axetil 250 mg tablet 250 mg PO BID 01/27/25 01/27/25 Allergies Allergy/AdvReac Type Severity Reaction Status Date / Time ciprofloxacin [From Cipro] Allergy Severe unknown Verified 01/27/25 12:38 Sulfa (Sulfonamide Allergy Severe unknown Verified 01/27/25 12:38 Antibiotics) Review of Systems 2 Review of Systems: All other systems are reviewed and are negative Constitutional: Reports as per HPI and Reports no additional constitutional complaints Eyes: Reports as per HPI and Reports no additional eye complaints Reports system reviewed and no additional complaints, except as documented Cardiovascular: Reports as per HPI and Reports no additional cardiovascular complaints Respiratory: Reports as per HPI and Reports no additional respiratory complaints Gastrointestinal: Reports as per HPI and Reports no additional gastrointestinal complaints Genitourinary: Reports no additional female genitourinary complaints Musculoskeletal: Reports no additional musculoskeletal complaints Skin/Breast: Reports system reviewed and no additional complaints, except as docu Psychiatric: Reports no additional psychiatric complaints Endocrine: Reports no additional endocrine complaints Hematologic/Lymphatic: Reports no additional hematologic/lymphatic complaints Allergic/Immunologic: Reports no additional allergic/immunologic complaints Reports system reviewed and no additional complaints, except as documented and Reports Abnormal speech present [facility] Past Medical History Medical History Fall Rectal prolapse Parkinsons disease Surgical History No pertinent past surgical history Social History Social History Household Members: None Housing: Other Housing Other:: independent living Do you presently have visiting nurse or other home services: Yes ([facility] in [facility]) Alcohol intake: never Patient Tobacco Use Status: Never used Tobacco Smoked in Last 30 Days: No Use of substances other than those prescribed or required for medical reasons: No Advance Directives: Yes Advance Directives on File: Yes Advance Directives Date on File: 12/11/21 Do you have a plan to hurt others: No Plan service: No Physical Exam 2 Vital Signs: Vital Signs: Last Vital Signs Temp 97.4 F 01/27/25 12:35 Pulse 83 01/27/25 12:35 Resp 16 01/27/25 12:35 BP 151/83 H 01/27/25 12:35 Pulse Ox 97 01/27/25 12:35 O2 Del Method Room Air 01/27/25 12:35 BMI result Body Mass Index 19.2 Vital signs have been reviewed and appear to be correct. Blood pressure elevated. Heart rate normal. Respiratory rate normal. Temperature normal. Oxygen saturation normal. Appearance: Alert. Oriented X3. No acute distress. Head: Normal external exam. Normocephalic. Atraumatic. No Cassidy signs noted. No raccoon eyes noted Eyes: PERRLA. EOMI. Conjunctiva and sclera normal. Eyelids normal. ENT: TM's Normal. Pharynx normal. Uvula midline. Moist mucous membranes. No trismus noted. No drooling noted. No muffled voice noted. Neck: Normal inspection. Neck supple. FROM. No adenopathy. Thyroid Normal. No meningeal signs. No neck mass noted. CVS: Normal heart rate and rhythm. Heart sound normal. No murmurs noted. Pulses normal throughout. Respiratory: No respiratory distress. Painless inspiration. Breath sounds normal. No wheezes/rales/rhonchi noted. Chest nontender. No accessory muscle usage noted or decreased air movement noted. Abdomen: Soft and nontender. Bowel sounds normal in all 4 quadrants. No distention noted. No organomegaly noted. No visible injury noted. Back: No CVA tenderness. Full range of motion noted. Skin: Skin warm and dry. Normal skin color. Normal skin turgor. No rashes/lesions/lacerations noted. Extremities: No lower extremity edema. Extremities exhibit normal range of motion. Extremities nontender. Neuro: Oriented X 3. Cranial nerve exam: II-XII are grossly intact No motor deficit. No sensory deficit. Reflexes normal. Course Reevaluation(s) Reevaluation #1: 85-year-old female sustained a mechanical fall without injuries, normal neuro exam and head CT patient is able to ambulate in the ED without hip issue. son at the bedside discussed with the patient to get rehab and placement patient would like to go back to [facility], some will take her back. Time: 15:57 Medications Administered Generic Name Dose Route Start Last Admin Trade Name Freq PRN Reason Stop Dose Admin Carbidopa/Levodopa 2 tab 01/27/25 13:15 01/27/25 15:13 Carbidopa/Levodopa 25/100 Tablet PO 2 tab QID MIGUEL Administration Cefuroxime Axetil 250 mg 01/27/25 13:15 01/27/25 13:17 Cefuroxime Axetil 250 Mg Tablet PO Not Given BID MIGUEL Levothyroxine Sodium 100 mcg 01/27/25 13:15 01/27/25 13:17 Levothyroxine Sodium 100 Mcg Tablet PO Not Given DAILY@0600 MIGUEL Medroxyprogesterone Acetate 10 mg 01/27/25 14:30 01/27/25 15:10 Medroxyprogesterone Acetate 5 Mg Tablet PO Not Given DAILY MIGUEL Sodium Chloride 1 gm 01/27/25 13:15 01/27/25 13:17 Sodium Chloride Tab 1 Gm Tablet PO Not Given DAILY MIGUEL Discontinued Medications Generic Name Dose Route Start Last Admin Trade Name Freq PRN Reason Stop Dose Admin Non-Formulary Medication 10 mg 01/27/25 13:15 01/27/25 13:17 Medroxyprogesterone PO Not Given DAILY MIGUEL Non-Formulary Medication 1.04 gm 01/27/25 13:15 01/27/25 13:17 Psyllium Husk PO Not Given BID MIGUEL Medical Decision Making Differential Diagnosis Differential Diagnoses: The differential diagnosis associated with the presentation includes ( Intracranial bleed, electrolyte derangement, severe anemia, extremity injury, chest injury, abdominal injury.) Admission/Observation Consideration of admission/observation: Escalation of care including admission/observation considered Lab Data MDM Lab Attestation statement: I reviewed the patient's lab results. 01/27/25 13:26 01/27/25 13:26 Labs: Lab Results 01/27/25 01/27/25 Range/Units 13:23 13:26 WBC 7.8 (4.8-10.8) X10*3/uL RBC 3.96 L (4.20-5.50) X10*6/uL Hgb 12.3 (12.0-16.0) g/dl Hct 36.6 L (37.0-47.0) % MCV 92.4 (80.0-98.0) fL MCH 31.1 (27.0-33.0) pg MCHC 33.6 (31.0-35.0) g/dl RDW 12.8 (11.0-16.0) % Plt Count 215 (160-400) X10*3/uL MPV 10.2 (9.4-12.3) fL Immature Gran % (Auto) 0.4 (0.0-0.4) % Neut % (Auto) 83.1 H (45-73) % Lymph % (Auto) 9.5 L (20-40) % [place] % (Auto) 6.3 (2-11) % Eos % (Auto) 0.4 (0-4) % Baso % (Auto) 0.3 (0-2) % Lymph # (Auto) 0.7 L (1.2-4.9) X10*3/uL [place] # (Auto) 0.5 (0.1-1.2) X10*3/uL Eos # (Auto) 0.0 (0.0-0.4) X10*3/uL Baso # (Auto) 0.0 (0.0-0.2) X10*3/uL Abs Immat Gran (auto) 0.03 (0.00-0.03) X10*3/uL Absolute Neuts (auto) 6.5 (2.0-8.3) x10*3/uL Absolute Nucleated RBC 0.000 (0.0-0.012) X10*3/uL Nucleated RBC % (auto) 0.0 (0.0-0.2) /100WBC Sodium 136 (135-145) mmol/L Potassium 4.3 (3.3-5.1) mmol/L Chloride 103 (96-108) mmol/L Carbon Dioxide 26 (22-29) mmol/L Anion Gap 11 L (12-20) BUN 26 H (9-16) mg/dL Creatinine 0.78 (0.5-1.4) mg/dL Estim Creat Clear Calc 41.5 Estimated GFR > 60 Random Glucose 118 H (60-115) mg/dL Calcium 9.0 (8.4-10.2) mg/dL Troponin I High Sens 8.8 (<3.5-17.0) ng/L Urine Color Yellow Urine Appearance Clear Urine pH 7.0 (5.0-9.0) Ur Specific [place] 1.020 (1.005-1.025) Urine Protein 30 (1+) H (Neg-Trace) mg/dL Urine Glucose (UA) Negative (Negative) mg/dL Urine Ketones Trace (Negative) mg/dL Urine Blood Negative (Negative) Urine Nitrite Negative (Negative) Ur Leukocyte Esterase Moderate (2+) H (Negative) Urine RBC 0-2 (0-2) /HPF Urine WBC 6-10 (0-5) /HPF Ur Squamous Epith Cells 6-10 (0-2) /HPF Urine Bacteria None Seen (None Seen) Hyaline Casts 0-2 (0-2) /LPF Independent Interpretation I performed an independent interpretation of an: CT Scan ( Head:No acute fracture, bony calvarium. No acute intracranial hemorrhage. 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 ) Radiology Impression Discussion of test interpretation with radiology: I have reviewed the radiologist's reading. Discharge Plan Discharge Clinical Impression: Accident due to mechanical fall without injury Patient Disposition: er [facility] Instructions: Fall Prevention (ED) Prescriptions: No Action cefuroxime axetil 250 mg tablet 250 mg PO BID carbidopa-levodopa 25-100 mg tablet 2 tab PO QID Rx Instructions: @0500,0900,1300,1700 psyllium husk 0.52 gram Capsule 1.04 g PO BID sodium chloride 1,000 mg Tablet,Soluble 1,000 mg PO DAILY albuterol sulfate 90 mcg/actuation Aerosol Powdr Breath Activated 2 inh INHALATION Q6H PRN (Reason: Shortness Of Breath Or Wheezing) carbidopa-levodopa 25-100 mg tablet extended release 2 tab PO BEDTIME medroxyprogesterone 10 mg tablet 10 mg PO DAILY levothyroxine 100 mcg tablet 100 mcg PO DAILY@0600 gabapentin 100 mg capsule 100 mg PO BEDTIME aspirin [Adult Low Dose Aspirin] 81 mg tablet,delayed release (DR/EC) 81 mg PO DAILY@2100 Referrals: Carley Luque MD [Primary Care Provider] - Print Language: Occitan
--- NOTE | 2025-01-27 12:52 | ECG_ITS ---
Test Reason : fall Blood Pressure : */* mmHG Vent. Rate : 86 BPM Atrial Rate : 86 BPM P-R Int : 182 ms QRS Dur : 86 ms QT Int : 370 ms P-R-T Axes : 68 32 45 degrees QTcB Int : 442 ms Sinus rhythm with Premature atrial complexes in a pattern of bigeminy Minimal voltage criteria for LVH, may be normal variant ( Thanh product ) Septal infarct (cited on or before 05-Dec-2024) Abnormal ECG When compared with ECG of 02-Jan-2025 09:08, Premature ventricular complexes are no longer Present Referred By: Jorge England Electronically Signed By: JAJA HOLM
[2025-01-27 13:31] LABS: Appearance Urine Clear; Color Urine Yellow; Glucose Urine UA Negative (Negative); Leukocyte Esterase Urine Moderate (2+) (Negative); Nitrite Urine Negative (Negative); UMIC TRIGGER UACC YES; Urine Blood Negative (Negative); Urine Ketones Trace mg/dL (Negative); Urine Protein 30 (1+) mg/dL (Neg-Trace)
[2025-01-27 13:37] LABS: MANUAL DIFF FLAG NO
[2025-01-27 13:39] LABS: Basophils Percent Auto 0.3 % (0-2); Eosinophils Percent Auto 0.4 % (0-4); Hematocrit 36.6 % (37.0-47.0); Hemoglobin 12.3 g/dl (12.0-16.0); Imm Gran Abs Auto 0.03 X10*3/uL (0.00-0.03); Imm Gran Pct Auto 0.4 % (0.0-0.4); Lymphocytes Absolute Auto 0.7 X10*3/uL (1.2-4.9); Lymphocytes Percent Auto 9.5 % (20-40); Mean Corpuscular HGB Conc 33.6 g/dl (31.0-35.0); Mean Corpuscular Hemoglobin 31.1 pg (27.0-33.0); Mean Corpuscular Volume 92.4 fL (80.0-98.0); Mean Platelet Volume 10.2 fL (9.4-12.3); Monocytes Absolute Auto 0.5 X10*3/uL (0.1-1.2); Monocytes Percent Auto 6.3 % (2-11); Neutrophils Absolute Auto 6.5 x10*3/uL (2.0-8.3); Neutrophils Percent Auto 83.1 % (45-73); Platelet Count 215 X10*3/uL (160-400); Red Blood Count 3.96 X10*6/uL (4.20-5.50); Red Cell Distribution Width 12.8 % (11.0-16.0); White Blood Count 7.8 X10*3/uL (4.8-10.8)
[2025-01-27 13:41] LABS: Bacteria Urine None Seen (None Seen); Hyaline Casts Urine 0-2 /LPF (0-2); RBC Urine 0-2 /HPF (0-2); UACC Culture Trigger YES
--- NOTE | 2025-01-27 13:44 | PC.NURSE ---
patient currently a&ox3, family at bedside- son is a physician at [facility] [employer]. rr equal/non labored, neck brace removed by provider, pt ambulated to bathroom with walker/assist, labs drawn by tech, ekg to be performed and pt will also have ct scan. plan of care ongoing
[2025-01-27 13:53] LABS: Anion Gap 11 (12-20); Blood Urea Nitrogen 26 mg/dL (9-16); Carbon Dioxide 26 mmol/L (22-29); Chloride 103 mmol/L (96-108); Creatinine Clr Calc Pharmacy 41.5; Estimated Glomerular Filt Rate > 60; Glucose Random 118 mg/dL (60-115); Potassium 4.3 mmol/L (3.3-5.1); Sodium 136 mmol/L (135-145)
[2025-01-27 14:01] LABS: Troponin-I High Sensitivity 8.8 ng/L (<3.5-17.0)
--- NOTE | 2025-01-27 14:16 | PHA.MEDREC ---
Addendum entered by Norbert Murillo 01/27/25 14:57: reviewed Original Note: Pharmacy Consult ? Medication Reconciliation Pharmacy has reviewed the medication reconciliation done by nursing. Spoke to patient karen Day to confirm med list. Son confirmed patient takes Carbidopa ER 25-Levodopa 100 mg 2 tablets at bedtime and Carbadopa-Levadopa 2 tablet QID 5:00am, 9:00am, 1:00pm and 5:00pm.
--- OUTSIDE RECORDS SUMMARY | 2025-01-27 15:07 | XMS_ITS | Encounter Summary ---
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 Name Role Phone Carley Luque MD Primary Care Provider [phone] Encounter Details Date Type Department Care Team (Late st Contact Info) Description 02/08/2023 Scanned Document [facility] [address] [phone] Marya Nolen PA [address] [id number] Social History Tobacco Use Types Packs/Day Years [...] Description 10/10/2025 11:50 AM EST Office Visit [facility] Neurology [address] [place] [address] Jones Brewer, SHELBY [address] [facility] [address] [place] [id number] documented as of this encounter Visit Diagnoses Not on filedocumented in this encounter Care Teams Sewer Pipe Layer Helper Relationship Specialty Start Date End Date Carley Luque MD [address] [place] [address] [place] [address] PCP - General Family Medicine 08/23/22 documented as of this encounter
--- OUTSIDE RECORDS SUMMARY | 2025-01-27 15:07 | XMS_ITS | Clinical Summary ---
Author Organization [facility] Address [address] [place] [address] Care Team Providers Care Glucose And Syrup Weigher Name Role Phone Carley Luque MD Primary [...] Cyanocobalamin (VITAMIN B-12 PO) Take by mouth. Act keely CRANBERRY PO Take by mouth. Active carbidopa-levodopa ER (SINEMET CR) 25-100 MG per tabletIndications:Par kinson's disease without dyskinesia or fluctuating manifestations (HCC) Take 2 tablets by mouth nightly. 180 tablet 1 05/27/2024 Active medroxyPROGESTERone (PROVERA) 10 MG tablet Take 1 tablet (10 mg total) by mouth daily. 06/18/2024 06/18/2025 Active psyllium (METAMUCIL) 58.12 % Pack packet Take 1 packet by mouth. Active carbidopa-levodopa (SINEMET) 25-100 MG per tabletIndications:Par kinson's disease (HCC) Take 2 tablets by mouth 4 (four) times a day. 720 tablet 1 11/19/2024 Active gabapentin (NEURONTIN) 100 MG capsule Take 1 capsule (100 mg total) by mouth nightly. Active Active Problems Problem Noted Date Diagnosed Date [...] Urinary urgency 08/23/2022 Dyskinesia 08/23/2022 Atherosclerosis of [place] co ronary artery of [place] heart without angina pectoris 07/20/2022 Overview (08/23/2022): [...] neurology recommendations, plan is to work with [facility]. Increased frequency of urination [...] Description 12/20/2024 11:50 AM EST Office Visit [facility] [address] [phone] Jones Brewer, SHELBY Parkinson's disease without dyskinesia or fluctuating manifestations (HCC) (Primary Dx) 12/20/2024 Travel 12/05/2024 Telephone [facility] [address] [phone] Kameron Levy MD FA - ONGENTYS 11/20/2024 Scanned Document [facility] [address] [phone] Neurology, Scan 11/20/2024 Refill [facility] [address] [phone] Jones Brewer R, COORDINATOR OF ONLINE PROGRAMS Parkinson's disease without dyskinesia or fluctuating manifestations (HCC) 11/19/2024 Refill [facility] [address] [phone] Jones Brewer R, COORDINATOR OF ONLINE PROGRAMS Parkinson's disease (HCC) 11/13/2024 Refill [facility] [address] [phone] Jones Brewer R, COORDINATOR OF ONLINE PROGRAMS Parkinson's disease without dyskinesia or fluctuating manifestations (HCC) 11/11/2024 Refill [facility] [address] [phone] Jones Brewer R, COORDINATOR OF ONLINE PROGRAMS Parkinson's disease without dyskinesia or fluctuating manifestations (HCC) 11/05/2024 Telephone [facility] [address] [phone] ProviderKameron MD ONGENTYS 11/04/2024 Orders Only [facility] [address] [phone] Gary Tapia MD from Last 3 Months Social History Tobacco [...] 11:50 AM EST Office Visit [facility] [place] [address] [facility] [address] [place] [phone] Jones Brewer, SHELBY [address] [facility] [address] [place] [address] Health Maintenance Due Date Last Done Comments [...] Documents on File Type Date Recorded 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
--- OUTSIDE RECORDS SUMMARY | 2025-01-27 15:07 | XMS_ITS | Encounter Summary ---
Author Organization [facility] Address [address] [place] [address] Care Team Providers Care Pull Over Name Role Phone Carley Luque MD Primary Care Provider [phone]- [phone] Reason for Visit * Reason Comments Medication Refill Encounter Details Date Type Department Care Team (Late Contact Info) Description 01/11/2023 Refill [facility] [address] [phone] Jones Brewer, SHELBY [address] [place] [phone] Parkinson's disease (HCC); Constipation, unspecified constipation [...] Description 10/10/2025 11:50 AM EST Office Visit [facility] [address] [place] [phone] Jones Brewer, RESEARCH AGRICULTURAL ENGINEER [address] [place] [address] documented as of this encounter Visit Diagnoses Diagnosis Parkinson's disease (HCC) Paralysis agitans Constipation, unspecified constipation type documented in this encounter Care Teams Pull Over Relationship Specialty Start Date End Date Carley Luque MD [address] [place] [id number] PCP - General Family Medicine 08/23/22 documented as of this encounter
--- OUTSIDE RECORDS SUMMARY | 2025-01-27 15:07 | XMS_ITS | Encounter Summary ---
Author Organization [facility] Address [address] [place] [address] Care Team Providers Care Director Of Guidance Name Role Phone Carley Luque MD Primary Care Provider [phone]- [phone] Reason for Visit * Reason Comments Medication Refill Encounter Details Date Type Department Care Team (Late Contact Info) Description 04/15/2023 Refill [facility] [address] [phone] Jones Brewer APRN [address] [phone] Parkinson's disease (HCC) Social History Tobacco Use [...] Description 10/10/2025 11:50 AM EST Office Visit [facility] [address] [place] [phone] Jones Brewer, SALES ROUTE DRIVER HELPER [address] [facility] [address] [place] [address] documented as of this encounter Visit Diagnoses Diagnosis Parkinson's disease (HCC) Paralysis agitans documented in this encounter Care Teams Director Of Guidance Relationship Specialty Start Date End Date Carley Luque MD [address] [place] [id number] PCP - General Family Medicine 08/23/22 documented as of this encounter
--- OUTSIDE RECORDS SUMMARY | 2025-01-27 15:07 | XMS_ITS | Encounter Summary ---
Author Organization [facility] Address [address] [place] [address] Care Team Providers Care Chief Fishery Division Name Role Phone Carley Luque MD Primary Care Provider [phone]- [phone] Encounter Details Date Type Department Care Team (Late st Contact Info) Description 11/20/2024 Scanned Document [facility] [address] [phone] Neurology, Scan Social History Tobacco Use Types [...] Description 10/10/2025 11:50 AM EST Office Visit [facility] [address] [phone] Jones Brewer, POULTRY BUYER [address] [facility] [address] [place] [phone] documented as of this encounter Visit Diagnoses Not on filedocumented in this encounter Care Teams Chief Fishery Division Relationship Specialty Start Date End Date Carley Luque MD [address] [place] [address] [place] [address] PCP - General Family Medicine 08/23/22 documented as of this encounter
[2025-01-27] MEDS: Carbidopa/Levodopa 25/100 TABLET 2 TAB PO (15:13)
[2025-01-27 16:34] VITALS: BP 138/92; TEMP 36.8
[2025-01-27 16:45] VITALS: BP 138/92; PULSE 80; RESP 16; TEMP 36.8
== END 2025-01-27 16:49 | disposition home or self-care (01) ==
PROVIDERS: Emergency Provider Emergency Medicine; PCP Student in an Organized Health Care Education/Training Program
DX: S79.911A Unspecified injury of right hip, initial encounter (principal); S09.90XA Unspecified injury of head, initial encounter; R26.81 Unsteadiness on feet; R51.9 Headache, unspecified; R94.31 Abnormal electrocardiogram [ECG] [EKG]; I10 Essential (primary) hypertension; X58.XXXA Exposure to other specified factors, initial encounter; Y93.9 Activity, unspecified; Y92.9 Unspecified place or not applicable; Y99.8 Other external cause status; Z79.899 Other long term (current) drug therapy
CPT/HCPCS: 36415; 70450; 80048; 81001; 84484; 85025; 87086; 93005; 99284

== ENCOUNTER → 2025-01-27 12:51 | Outpatient (BNV) | payer MEDICARE, SELFPAY | PROVIDERS: Emergency Provider Emergency Medicine; PCP Student in an Organized Health Care Education/Training Program; Visit Provider Radiology Diagnostic Radiology | DX: I67.2 Cerebral atherosclerosis (principal); R90.82 White matter disease, unspecified | CPT/HCPCS: 70450 ==

== ENCOUNTER → 2025-01-27 12:52 | Outpatient (BNV) | payer MEDICARE, SELFPAY | PROVIDERS: Emergency Provider Emergency Medicine; PCP Student in an Organized Health Care Education/Training Program; Visit Provider Internal Medicine | DX: I49.1 Atrial premature depolarization (principal); R94.31 Abnormal electrocardiogram [ECG] [EKG] | CPT/HCPCS: 93010 ==